=== PATIENT | male | born 1965 | race Caucasian/White ===

== ENCOUNTER 2020-03-20 10:40 | Inpatient (IN) | payer BC ==
[2020-03-20] MEDS ORDERED: MORPHINE SULFATE 4 MG/ML SYRINGE IV STA (10:50)
[2020-03-20] MEDS ORDERED: SODIUM CHLORIDE 0.9% 500 ML 500 ML IV STA (10:50)
--- NOTE | 2020-03-20 10:52 | ED ---
General Adult HPI - General Chief complaint: Abdominal Pain Stated complaint: Abd pain Time Seen by Provider: 03/20/20 10:43 Source: EMS Mode of arrival: EMS Limitations: no limitations - History of Present Illness Initial comments: Dictation was produced using [employer] dictation software. please excuse any grammatical, word or spelling errors. This patient was cared for during a federal and state declared state of emergency secondary to Covid 19 Chief Complaint: 54-year-old male presents with lower abdominal pain. History of Present Illness: 54-year-old male presents with lower abdominal pain. Patient was brought in by EMS. Patient states he is having symptoms since yesterday. Does feel some mild constitutional symptoms but denies any fever. Patient states that he thought he was constipated so he tried taking some laxatives and had some mild diarrhea. Patient denies any history of abdominal surgery. He has no history of diverticulitis. He has any blood in the stool. He did report a couple episodes of bilious vomiting. The ROS documented in this emergency department record has been reviewed and confirmed by me. Those systems with pertinent positive or negative responses have been documented in the HPI. All other systems are other negative and/or noncontributory. PHYSICAL EXAM: General Impression: Alert and oriented x3, not in acute distress HEENT: Normocephalic atraumatic, extra-ocular movements intact, pupils equal and reactive to light bilaterally, mucous membranes moist. Cardiovascular: Heart regular rate and rhythm Chest: Able to complete full sentences, no retractions, no tachypnea Abdomen: abdomen soft, tenderness to the bilateral lower abdominal quadrants, non-distended, no organomegaly Musculoskeletal: Pulses present and equal in all extremities, no peripheral edema Motor: no focal deficits noted Neurological: CN II-XII grossly intact, no focal motor or sensory deficits noted Skin: Intact with no visualized rashes Psych: Normal affect and mood ED course: 54-year-old male presents with lower abdominal pain 12 hours. [vital signs] Vital signs upon arrival shows heart rate of 103. Laboratory evaluation shows leukocytosis of 20.6. 19.2 neutrophils. Coag panel unremarkable. Metabolic panel shows lactic acidosis 2.2. Urinalysis is negative. Computed tomography scan of the abdomen and pelvis shows acute pelvic and diverticulitis with localized perforation. Patient will be admitted. Discussed patient case Dr. Khan was willing to accept patients care. He request that medicine be consulted. Patient given Zosyn and started intravenous fluids. He will be nothing by mouth currently. - Related Data Allergies Allergy/AdvReac Type Severity Reaction Status Date / Time No Known Allergies Allergy Verified 03/20/20 10:50 Review of Systems ROS Statement: Those systems with pertinent positive or pertinent negative responses have been documented in the HPI. ROS Other: All systems not noted in ROS Statement are negative. Past Medical History Past Medical History: No Reported History History of Any Multi-Drug Resistant Organisms: None Reported Past Surgical History: No Surgical Hx Reported Past Psychological History: No Psychological Hx Reported Smoking Status: Former smoker Past Alcohol Use History: None Reported Past Drug Use History: None Reported General Exam Limitations: no limitations Course Vital Signs 03/20/20 11:05 Temperature 99.0 F Pulse Rate 103 H Respiratory 18 Rate Blood Pressure 133/85 O2 Sat by Pulse 98 Oximetry Medical Decision Making - Lab Data Result diagrams: 03/20/20 11:10 03/20/20 11:10 Lab Results 03/20/20 03/20/20 03/20/20 Range/Units 11:10 11:10 11:10 WBC 20.6 H (3.8-10.6) k/uL RBC 4.97 (4.30-5.90) m/uL Hgb 15.3 (13.0-17.5) gm/dL Hct 47.5 (39.0-53.0) % MCV 95.6 (80.0-100.0) fL MCH 30.9 (25.0-35.0) pg MCHC 32.3 (31.0-37.0) g/dL RDW 13.0 (11.5-15.5) % Plt Count (150-450) k/uL Neutrophils % 93 % Lymphocytes % 3 % Monocytes % 2 % Eosinophils % 1 % Basophils % 0 % Neutrophils # 19.2 H (1.3-7.7) k/uL Lymphocytes # 0.6 L (1.0-4.8) k/uL Monocytes # 0.5 (0-1.0) k/uL Eosinophils # 0.2 (0-0.7) k/uL Basophils # 0.0 (0-0.2) k/uL Manual Slide Review Performed PT 11.5 (9.0-12.0) sec INR 1.1 (<1.2) APTT 23.2 (22.0-30.0) sec Sodium 135 L (137-145) mmol/L Potassium 3.7 (3.5-5.1) mmol/L Chloride 104 (98-107) mmol/L Carbon Dioxide 20 L (22-30) mmol/L Anion Gap 11 mmol/L BUN 9 (9-20) mg/dL Creatinine 0.99 (0.66-1.25) mg/dL Est GFR (CKD-EPI)AfAm >90 (>60 ml/min/1.73 sqM) Est GFR (CKD-EPI)NonAf 86 (>60 ml/min/1.73 sqM) Glucose 103 H (74-99) mg/dL Plasma Lactic Acid Jose (0.7-2.0) mmol/L Calcium 8.8 (8.4-10.2) mg/dL Total Bilirubin 2.2 H (0.2-1.3) mg/dL AST 17 (17-59) U/L ALT 11 (4-49) U/L Alkaline Phosphatase 76 (38-126) U/L Total Protein 6.6 (6.3-8.2) g/dL Albumin 3.9 (3.5-5.0) g/dL Lipase 41 (23-300) U/L Urine Color Urine Appearance (Clear) Urine pH (5.0-8.0) Ur Specific [place] (1.001-1.035) Urine Protein (Negative) Urine Glucose (UA) (Negative) Urine Ketones (Negative) Urine Blood (Negative) Urine Nitrite (Negative) Urine Bilirubin (Negative) Urine Urobilinogen (<2.0) mg/dL Ur Leukocyte Esterase (Negative) Urine RBC (0-5) /hpf Urine WBC (0-5) /hpf Ur Squamous Epith Cells (0-4) /hpf Hyaline Casts (0-2) /lpf Urine Mucus (None) /hpf 03/20/20 03/20/20 Range/Units 11:10 11:10 WBC (3.8-10.6) k/uL RBC (4.30-5.90) m/uL Hgb (13.0-17.5) gm/dL Hct (39.0-53.0) % MCV (80.0-100.0) fL MCH (25.0-35.0) pg MCHC (31.0-37.0) g/dL RDW (11.5-15.5) % Plt Count (150-450) k/uL Neutrophils % % Lymphocytes % % Monocytes % % Eosinophils % % Basophils % % Neutrophils # (1.3-7.7) k/uL Lymphocytes # (1.0-4.8) k/uL Monocytes # (0-1.0) k/uL Eosinophils # (0-0.7) k/uL Basophils # (0-0.2) k/uL Manual Slide Review PT (9.0-12.0) sec INR (<1.2) APTT (22.0-30.0) sec Sodium (137-145) mmol/L Potassium (3.5-5.1) mmol/L Chloride (98-107) mmol/L Carbon Dioxide (22-30) mmol/L Anion Gap mmol/L BUN (9-20) mg/dL Creatinine (0.66-1.25) mg/dL Est GFR (CKD-EPI)AfAm (>60 ml/min/1.73 sqM) Est GFR (CKD-EPI)NonAf (>60 ml/min/1.73 sqM) Glucose (74-99) mg/dL Plasma Lactic Acid Jose 2.2 H* (0.7-2.0) mmol/L Calcium (8.4-10.2) mg/dL Total Bilirubin (0.2-1.3) mg/dL AST (17-59) U/L ALT (4-49) U/L Alkaline Phosphatase (38-126) U/L Total Protein (6.3-8.2) g/dL Albumin (3.5-5.0) g/dL Lipase (23-300) U/L Urine Color Yellow Urine Appearance Clear (Clear) Urine pH 8.0 (5.0-8.0) Ur Specific [place] 1.016 (1.001-1.035) Urine Protein 1+ H (Negative) Urine Glucose (UA) Negative (Negative) Urine Ketones 1+ H (Negative) Urine Blood Trace H (Negative) Urine Nitrite Negative (Negative) Urine Bilirubin Negative (Negative) Urine Urobilinogen 3.0 (<2.0) mg/dL Ur Leukocyte Esterase Negative (Negative) Urine RBC 1 (0-5) /hpf Urine WBC 1 (0-5) /hpf Ur Squamous Epith Cells <1 (0-4) /hpf Hyaline Casts 1 (0-2) /lpf Urine Mucus Few H (None) /hpf Disposition Clinical Impression: Diverticulitis Disposition: ADMITTED IP TO THIS HOSP Condition: Fair Referrals: None,Stated [Primary Care Provider] - 1-2 days Decision Time: 12:12
[2020-03-20 11:29] LABS: ALT 11 U/L (4-49); AST 17 U/L (17-59); African American GFR (CKD) >90 (>60 ml/min/1.73 sqM); Albumin 3.9 g/dL (3.5-5.0); Alkaline Phosphatase 76 U/L (38-126); Anion Gap 11 mmol/L; Blood Urea Nitrogen 9 mg/dL (9-20); Calcium 8.8 mg/dL (8.4-10.2); Carbon Dioxide 20 mmol/L (22-30); Chloride 104 mmol/L (98-107); Glucose 103 mg/dL (74-99); Non-African American GFR(CKD) 86 (>60 ml/min/1.73 sqM); Potassium 3.7 mmol/L (3.5-5.1); Sodium 135 mmol/L (137-145); Total Bilirubin 2.2 mg/dL (0.2-1.3); Total Protein 6.6 g/dL (6.3-8.2)
[2020-03-20 11:36] LABS: Basophils % (A) 0 %; Eosinophils # (A) 0.2 k/uL (0-0.7); Eosinophils % (A) 1 %; HCT 47.5 % (39.0-53.0); HGB 15.3 gm/dL (13.0-17.5); Lymphocytes # (A) 0.6 k/uL (1.0-4.8); Lymphocytes % (A) 3 %; MCH 30.9 pg (25.0-35.0); MCHC 32.3 g/dL (31.0-37.0); MCV 95.6 fL (80.0-100.0); Monocytes # (A) 0.5 k/uL (0-1.0); Monocytes % (A) 2 %; Neutrophils # (A) 19.2 k/uL (1.3-7.7); Neutrophils % (A) 93 %; RBC 4.97 m/uL (4.30-5.90); WBC 20.6 k/uL (3.8-10.6)
[2020-03-20 11:40] LABS: Appearance,Urine Clear (Clear); Bilirubin,Urine Negative (Negative); Blood,Urine Trace (Negative); Color,Urine Yellow; Glucose,Urine (UA) Negative (Negative); Hyaline Casts,Urine 1 /lpf (0-2); Ketones,Urine 1+ (Negative); Leukocyte Esterase,Urine Negative (Negative); Mucus,Urine Few /hpf; Nitrite,Urine Negative (Negative); Protein,Urine 1+ (Negative); RBC,Urine 1 /hpf (0-5); Specific Gravity,Urine 1.016 (1.001-1.035); Squamous Epithelial Cell,Urine <1 /hpf (0-4); WBC,Urine 1 /hpf (0-5)
--- NOTE | 2020-03-20 11:44 | CT ---
EXAMINATION TYPE: CT abdomen pelvis w con DATE OF EXAM: 03/20/2020 COMPARISON: Prior CT 07/01/2010 HISTORY: Abdominal pain CT DLP: 1080.3 mGycm Automated exposure control for dose reduction was used. TECHNIQUE: Helical acquisition of images from the lung bases through the pelvis have been completed. CONTRAST: Performed without Oral Contrast and with IV Contrast, patient injected with 100 mL of Isovue 300. FINDINGS: LUNG BASES: No significant abnormality is appreciated. AORTA: No significant abnormality is appreciated. LIVER/GB: Liver shows low attenuation, correlate for hepatic steatosis. Gallbladder is normal. PANCREAS: No significant abnormality is seen. SPLEEN: No significant abnormality is seen. ADRENALS: No significant abnormality is seen. KIDNEYS: No significant abnormality is seen. Small parapelvic cysts noted on the right. Retroaortic l eft renal vein is present. REPRODUCTIVE ORGANS: Prostate shows associated calcification BOWEL: There is small umbilical hernia containing fat. The sigmoid colon shows abnormal thickening. There is some diverticular change. There is localized leak immediately adjacent to the sigmoid colon with an air-fluid level, focal area within the mesenteric fat measures approximately 2.8 cm. Overall the air pocket measures approximately 5 cm within the pericolonic mesenteric fat There is increased g roundglass density within the surrounding fat. FREE AIR: No Free Air visible. ASCITES: None visible. PELVIC ADENOPATHY: None visualized. RETROPERITONEAL ADENOPATHY: No Retroperitoneal Adenopathy visible. URINARY BLADDER: No significant abnormality is seen. OSSEOUS STRUCTURES: No significant abnormality is seen. IMPRESSION: DIVERTICULITIS WITH LOCALIZED PERFORATION. There is a small air-fluid level, no enhancing wall to sug gest abscess at this time. Probable hepatic steatosis.
[2020-03-20] MEDS ORDERED: PIPERACILLIN-TAZOBACTAM 3.375 GM in SODIUM CHLORIDE 0.9% 100 ML IVPB STA (11:46)
[2020-03-20 11:48] LABS: INR 1.1 (<1.2); Partial Thromboplastin Time 23.2 sec (22.0-30.0); Prothrombin Time 11.5 sec (9.0-12.0)
[2020-03-20] MEDS ORDERED: MORPHINE SULFATE 4 MG/ML SYRINGE IV PRN (12:09)
[2020-03-20] MEDS ORDERED: NALOXONE 0.4 MG/ML 1 ML VIAL IV PRN (12:09)
[2020-03-20] MEDS: SODIUM CHLORIDE 0.9% 1,000 ML IV SCH ×2 (14:51→22:26)
[2020-03-20] MEDS ORDERED: diphenhydrAMINE 50 MG/ML 1 ML VIAL IVP PRN (16:18)
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
--- NOTE | 2020-03-20 16:58 | XR ---
EXAMINATION TYPE: XR abdomen 2V DATE OF EXAM: 03/20/2020 COMPARISON: NONE HISTORY: Pelvic pain TECHNIQUE: Supine and upright views FINDINGS: Bowel gas pattern is normal. There is no sign of intestinal obstruction or pneumoperitoneum . Fecal pattern is normal. There is some minimal pleural reaction at the left lung base. There are no pathologic calcifications over the kidneys. There is contrast in the urinary bladder. IMPRESSION: Nonacute abdomen. Minimal pleural reaction and atelectasis left lung base.
[2020-03-20] MEDS: MORPHINE SULFATE 4 MG/ML SYRINGE IV PRN (22:28)
[2020-03-21] MEDS: ACETAMINOPHEN TAB 325 MG TAB PO PRN ×2 (02:40→16:31)
[2020-03-21] MEDS: MORPHINE SULFATE 4 MG/ML SYRINGE IV PRN ×3 (05:19→20:14)
[2020-03-21] MEDS: SODIUM CHLORIDE 0.9% 1,000 ML IV SCH ×3 (05:20→21:02)
[2020-03-21 07:56] LABS: HGB 13.5 gm/dL (13.0-17.5); MCH 32.5 pg (25.0-35.0); MCV 98.5 fL (80.0-100.0); Mean Platelet Volume 7.4; Platelet Count 196 k/uL (150-450); RBC 4.16 m/uL (4.30-5.90); RDW 13.2 % (11.5-15.5); WBC 16.8 k/uL (3.8-10.6)
[2020-03-21 08:20] LABS: ALT 11 U/L (4-49); AST 19 U/L (17-59); African American GFR (CKD) >90 (>60 ml/min/1.73 sqM); Albumin 3.1 g/dL (3.5-5.0); Alkaline Phosphatase 54 U/L (38-126); Anion Gap 6 mmol/L; Blood Urea Nitrogen 13 mg/dL (9-20); Calcium 7.8 mg/dL (8.4-10.2); Carbon Dioxide 24 mmol/L (22-30); Chloride 104 mmol/L (98-107); Glucose 94 mg/dL (74-99); Magnesium 2.1 mg/dL (1.6-2.3); Non-African American GFR(CKD) >90 (>60 ml/min/1.73 sqM); Potassium 4.3 mmol/L (3.5-5.1); Sodium 134 mmol/L (137-145); Total Bilirubin 0.9 mg/dL (0.2-1.3); Total Protein 5.8 g/dL (6.3-8.2)
[2020-03-21] MEDS: PIPERACILLIN-TAZOBACTAM 3.375 GM in SODIUM CHLORIDE 0.9% 100 ML IVPB SCH ×3 (09:49→23:22)
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
--- NOTE | 2020-03-21 13:08 | P.GSHP ---
History of Present Illness H&P Date: 03/21/20 CHIEF COMPLAINT: Abdominal pain HISTORY OF PRESENT ILLNESS: 54-year-old male who presented to emergency room with a chief complaint of abdominal pain. Patient was found to have diverticulitis with localized perforation. Patient examined this morning at the bedside with Dr. Khan. Patient states his pain has significantly improved. Currently rating his pain 3/10. Patient was febrile overnight with a temperature of 100.9. PAST MEDICAL HISTORY: See list. PAST SURGICAL HISTORY: list. SOCIAL HISTORY: No illicit drug use. REVIEW OF SYSTEMS: CONSTITUTIONAL: Denies fever or chills. HEENT: Denies blurred vision, vision changes, or eye pain. Denies hemoptysis CARDIOVASCULAR: Denies chest pain or pressure. RESPIRATORY: No shortness of breath. GASTROINTESTINAL: Refer to [facility] for pertinent findings HEMATOLOGIC: Denies bleeding disorders. GENITOURINARY: Denies any blood in urine. SKIN: Denies pruitis. Denies rash. PHYSICAL EXAM: VITAL SIGNS: Reviewed. GENERAL: Well-developed in no acute distress. HEENT: No sclera icterus. Extraocular movements grossly intact. Moist buccal mucosa. Head is atraumatic, normocephalic. ABDOMEN: Soft. Nondistended. Mild tenderness with palpation of lower abdomen. NEUROLOGIC: Alert and oriented. Cranial nerves II through XII grossly intact. LABORATORY DATA: WBC on admission 20.6. Repeat 16.8. IMAGING: CT abdomen and pelvis: Diverticulitis with localized perforation. ASSESSMENT: 1. Abdominal pain 2. Diverticulitis with localized perforation PLAN: Continue NPO for today Continue IV antibiotics No surgical intervention recommended at this time Nurse practitioner note has been reviewed by physician. Signing provider agrees with the documented findings, assessment, and plan of care. Past Medical History Past Medical History: No Reported History History of Any Multi-Drug Resistant Organisms: None Reported Past Surgical History: No Surgical Hx Reported Additional Past Surgical History / Comment(s): left elbow fracture repair, left knee washout and extensive stitches. Past Psychological History: No Psychological Hx Reported Smoking Status: Former smoker Past Alcohol Use History: Occasional Past Drug Use History: None Reported - Past Family History Father Additional Family Medical History / Comment(s): Aortic aneurysm Medications and Allergies Home Medications Medication Instructions Recorded Confirmed Type No Known Home Medications 03/20/20 03/20/20 History Allergies Allergy/AdvReac Type Severity Reaction Status Date / Time No Known Allergies Allergy Verified 03/20/20 16:32 Surgical - Exam Vital Signs Temp Pulse Resp BP Pulse Ox 99.0 F 103 H 18 133/85 98 03/20/20 11:05 03/20/20 11:05 03/20/20 11:05 03/20/20 11:05 03/20/20 11:05 Results - Labs 03/21/20 07:37 03/21/20 07:37 Abnormal Lab Results - Last 24 Hours (Table) 03/21/20 03/21/20 Range/Units 07:37 07:37 WBC 16.8 H (3.8-10.6) k/uL RBC 4.16 L (4.30-5.90) m/uL Sodium 134 L (137-145) mmol/L Calcium 7.8 L (8.4-10.2) mg/dL Total Protein 5.8 L (6.3-8.2) g/dL Albumin 3.1 L (3.5-5.0) g/dL Diabetes panel 03/21/20 Range/Units 07:37 Sodium 134 L (137-145) mmol/L Potassium 4.3 (3.5-5.1) mmol/L Chloride 104 (98-107) mmol/L Carbon Dioxide 24 (22-30) mmol/L BUN 13 (9-20) mg/dL Creatinine 0.94 (0.66-1.25) mg/dL Glucose 94 (74-99) mg/dL Calcium 7.8 L (8.4-10.2) mg/dL AST 19 (17-59) U/L ALT 11 (4-49) U/L Alkaline Phosphatase 54 (38-126) U/L Total Protein 5.8 L (6.3-8.2) g/dL Albumin 3.1 L (3.5-5.0) g/dL Calcium panel 03/21/20 Range/Units 07:37 Calcium 7.8 L (8.4-10.2) mg/dL Albumin 3.1 L (3.5-5.0) g/dL Pituitary panel 03/21/20 Range/Units 07:37 Sodium 134 L (137-145) mmol/L Potassium 4.3 (3.5-5.1) mmol/L Chloride 104 (98-107) mmol/L Carbon Dioxide 24 (22-30) mmol/L BUN 13 (9-20) mg/dL Creatinine 0.94 (0.66-1.25) mg/dL Glucose 94 (74-99) mg/dL Calcium 7.8 L (8.4-10.2) mg/dL Adrenal panel 03/21/20 Range/Units 07:37 Sodium 134 L (137-145) mmol/L Potassium 4.3 (3.5-5.1) mmol/L Chloride 104 (98-107) mmol/L Carbon Dioxide 24 (22-30) mmol/L BUN 13 (9-20) mg/dL Creatinine 0.94 (0.66-1.25) mg/dL Glucose 94 (74-99) mg/dL Calcium 7.8 L (8.4-10.2) mg/dL Total Bilirubin 0.9 (0.2-1.3) mg/dL AST 19 (17-59) U/L ALT 11 (4-49) U/L Alkaline Phosphatase 54 (38-126) U/L Total Protein 5.8 L (6.3-8.2) g/dL Albumin 3.1 L (3.5-5.0) g/dL
[2020-03-21] MEDS: ONDANSETRON 4 MG/2 ML VIAL IVP PRN (20:14)
[2020-03-22] MEDS: MORPHINE SULFATE 4 MG/ML SYRINGE IV PRN ×4 (04:24→22:25)
[2020-03-22] MEDS: SODIUM CHLORIDE 0.9% 1,000 ML IV SCH ×4 (04:56→23:39)
[2020-03-22] MEDS: PIPERACILLIN-TAZOBACTAM 3.375 GM in SODIUM CHLORIDE 0.9% 100 ML IVPB SCH ×3 (07:37→23:39)
[2020-03-22 08:57] LABS: HGB 13.3 gm/dL (13.0-17.5); MCH 32.8 pg (25.0-35.0); MCHC 33.2 g/dL (31.0-37.0); MCV 98.8 fL (80.0-100.0); Mean Platelet Volume 8.9; Platelet Count 159 k/uL (150-450); RBC 4.05 m/uL (4.30-5.90); RDW 13.3 % (11.5-15.5); WBC 16.3 k/uL (3.8-10.6)
[2020-03-22 09:18] LABS: ALT 9 U/L (4-49); AST 18 U/L (17-59); African American GFR (CKD) >90 (>60 ml/min/1.73 sqM); Alkaline Phosphatase 62 U/L (38-126); Anion Gap 11 mmol/L; Blood Urea Nitrogen 11 mg/dL (9-20); Calcium 7.9 mg/dL (8.4-10.2); Carbon Dioxide 20 mmol/L (22-30); Chloride 103 mmol/L (98-107); Glucose 81 mg/dL (74-99); Magnesium 2.2 mg/dL (1.6-2.3); Non-African American GFR(CKD) >90 (>60 ml/min/1.73 sqM); Phosphorus 2.6 mg/dL (2.5-4.5); Potassium 4.3 mmol/L (3.5-5.1); Sodium 134 mmol/L (137-145); Total Bilirubin 0.9 mg/dL (0.2-1.3); Total Protein 5.8 g/dL (6.3-8.2)
--- NOTE | 2020-03-22 10:25 | P.PN ---
<Farzana Lombardi Fernanda - Last Filed: 03/22/20 10:22> Subjective Progress Note Date: 03/22/20 CHIEF COMPLAINT: Abdominal pain HISTORY OF PRESENT ILLNESS: Patient examined this morning at the bedside. He denies abdominal pain at rest. He reports pain 2/10 with movement. He remains nothing by mouth. White count is 16.3, down from 16.8. PHYSICAL EXAM: VITAL SIGNS: Reviewed. GENERAL: Well-developed in no acute distress. HEENT: No sclera icterus. Extraocular movements grossly intact. Moist buccal mucosa. Head is atraumatic, normocephalic. ABDOMEN: Soft. Nondistended. Minimal tenderness with palpation of lower abdomen. NEUROLOGIC: Alert and oriented. Cranial nerves II through XII grossly intact. ASSESSMENT: 1. Abdominal pain 2. Diverticulitis with localized perforation PLAN: Continue IV antibiotics. Monitor WBC. No surgical intervention recommended at this time Continue NPO status until evaluated by Dr. Khan this afternoon. Possible initiation of clear liquids. Nurse practitioner note has been reviewed by physician. Signing provider agrees with the documented findings, assessment, and plan of care. Objective - Vital Signs Vital signs: Vital Signs Temp 98.1 F 03/22/20 07:00 Pulse 86 03/22/20 07:00 Resp 16 03/22/20 07:00 BP 128/81 03/22/20 07:00 Pulse Ox 97 03/22/20 07:00 Intake & Output 03/21/20 03/22/20 03/22/20 18:59 06:59 18:59 Other: Voiding Method Toilet Toilet Toilet - Labs CBC & Chem 7: 03/22/20 08:12 03/22/20 08:12 Labs: Abnormal Lab Results - Last 24 Hours (Table) 03/22/20 03/22/20 Range/Units 08:12 08:12 WBC 16.3 H (3.8-10.6) k/uL RBC 4.05 L (4.30-5.90) m/uL Sodium 134 L (137-145) mmol/L Carbon Dioxide 20 L (22-30) mmol/L Calcium 7.9 L (8.4-10.2) mg/dL Total Protein 5.8 L (6.3-8.2) g/dL Albumin 3.0 L (3.5-5.0) g/dL Microbiology - Last 24 Hours (Table) 03/20/20 12:25 Blood Culture - Preliminary Blood No Growth after 24 hours <Bhupendra Khan - Last Filed: 03/22/20 16:36> Objective - Vital Signs Vital signs: Vital Signs Temp 98.3 F 03/22/20 14:56 Pulse 90 03/22/20 14:56 Resp 18 03/22/20 14:56 BP 137/91 03/22/20 14:56 Pulse Ox 98 03/22/20 14:56 Intake & Output 03/21/20 03/22/20 03/22/20 18:59 06:59 18:59 Other: Voiding Method Toilet Toilet Toilet # Voids 3 - Labs CBC & Chem 7: 03/22/20 08:12 03/22/20 08:12 Labs: Abnormal Lab Results - Last 24 Hours (Table) 03/22/20 03/22/20 Range/Units 08:12 08:12 WBC 16.3 H (3.8-10.6) k/uL RBC 4.05 L (4.30-5.90) m/uL Sodium 134 L (137-145) mmol/L Carbon Dioxide 20 L (22-30) mmol/L Calcium 7.9 L (8.4-10.2) mg/dL Total Protein 5.8 L (6.3-8.2) g/dL Albumin 3.0 L (3.5-5.0) g/dL Microbiology - Last 24 Hours (Table) 03/20/20 12:25 Blood Culture - Preliminary Blood No Growth after 48 hours Assessment and Plan Plan: Patient is improving. His abdominal pain is less. On exam his vital signs are stable. His abdomen is soft. There is minimal tenderness left lower quadrant. Improving diverticulitis. Patient continue receive IV antibiotics. We will advance his diet.
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
[2020-03-23] MEDS: MORPHINE SULFATE 4 MG/ML SYRINGE IV PRN (05:57)
[2020-03-23] MEDS: PIPERACILLIN-TAZOBACTAM 3.375 GM in SODIUM CHLORIDE 0.9% 100 ML IVPB SCH ×3 (07:33→23:46)
--- NOTE | 2020-03-23 10:08 | P.PN ---
Subjective Progress Note Date: 03/23/20 CHIEF COMPLAINT: Abdominal pain HISTORY OF PRESENT ILLNESS: Patient examined this morning at the bedside. He denies abdominal pain at rest. He is tolerating clear liquid diet. Denies nausea or vomiting. Vital signs are stable. He is afebrile. PHYSICAL EXAM: VITAL SIGNS: Reviewed. GENERAL: Well-developed in no acute distress. HEENT: No sclera icterus. Extraocular movements grossly intact. Moist buccal mucosa. Head is atraumatic, normocephalic. ABDOMEN: Soft. Nondistended. Abdomen nontender with palpation. NEUROLOGIC: Alert and oriented. Cranial nerves II through XII grossly intact. ASSESSMENT: 1. Abdominal pain 2. Diverticulitis with localized perforation PLAN: Continue IV antibiotics. Monitor WBC. No surgical intervention recommended at this time Continue clear liquid diet. Await a.m. results of CBC. Possible advancement of diet pending labs. Patient will be reevaluated today by Dr. Khan Nurse practitioner note has been reviewed by physician. Signing provider agrees with the documented findings, assessment, and plan of care. Objective - Vital Signs Vital signs: Vital Signs Temp 97.8 F 03/23/20 07:00 Pulse 79 03/23/20 07:33 Resp 18 03/23/20 07:33 BP 130/80 03/23/20 07:00 Pulse Ox 94 L 03/23/20 07:00 Intake & Output 03/22/20 03/23/20 03/23/20 18:59 06:59 18:59 Other: Voiding Method Toilet Toilet Toilet # Voids 3 3 - Labs CBC & Chem 7: 03/22/20 08:12 03/22/20 08:12 Labs: Microbiology - Last 24 Hours (Table) 03/20/20 12:25 Blood Culture - Preliminary Blood No Growth after 48 hours
[2020-03-23 10:22] LABS: Basophils % (A) 0 %; Eosinophils # (A) 0.1 k/uL (0-0.7); Eosinophils % (A) 1 %; HCT 42.7 % (39.0-53.0); HGB 13.6 gm/dL (13.0-17.5); Lymphocytes # (A) 0.4 k/uL (1.0-4.8); Lymphocytes % (A) 3 %; MCHC 31.9 g/dL (31.0-37.0); MCV 97.3 fL (80.0-100.0); Mean Platelet Volume 9.7; Monocytes # (A) 0.5 k/uL (0-1.0); Monocytes % (A) 4 %; Neutrophils # (A) 11.6 k/uL (1.3-7.7); Neutrophils % (A) 91 %; Platelet Count 175 k/uL (150-450); RBC 4.39 m/uL (4.30-5.90); WBC 12.7 k/uL (3.8-10.6)
[2020-03-23 10:43] LABS: African American GFR (CKD) >90 (>60 ml/min/1.73 sqM); Anion Gap 7 mmol/L; Blood Urea Nitrogen 9 mg/dL (9-20); Calcium 8.4 mg/dL (8.4-10.2); Carbon Dioxide 25 mmol/L (22-30); Chloride 100 mmol/L (98-107); Glucose 138 mg/dL (74-99); Non-African American GFR(CKD) >90 (>60 ml/min/1.73 sqM); Sodium 132 mmol/L (137-145)
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
[2020-03-24 07:46] LABS: Basophils % (A) 0 %; Eosinophils # (A) 0.1 k/uL (0-0.7); Eosinophils % (A) 1 %; HCT 44.7 % (39.0-53.0); HGB 15.1 gm/dL (13.0-17.5); Lymphocytes # (A) 0.8 k/uL (1.0-4.8); Lymphocytes % (A) 6 %; MCH 32.6 pg (25.0-35.0); MCHC 33.8 g/dL (31.0-37.0); MCV 96.3 fL (80.0-100.0); Mean Platelet Volume 8.8; Monocytes # (A) 0.6 k/uL (0-1.0); Monocytes % (A) 5 %; Neutrophils # (A) 10.5 k/uL (1.3-7.7); Neutrophils % (A) 86 %; Platelet Count 228 k/uL (150-450); RBC 4.65 m/uL (4.30-5.90); WBC 12.2 k/uL (3.8-10.6)
[2020-03-24 08:14] LABS: African American GFR (CKD) >90 (>60 ml/min/1.73 sqM); Anion Gap 9 mmol/L; Blood Urea Nitrogen 7 mg/dL (9-20); Calcium 8.5 mg/dL (8.4-10.2); Carbon Dioxide 24 mmol/L (22-30); Chloride 104 mmol/L (98-107); Glucose 104 mg/dL (74-99); Non-African American GFR(CKD) >90 (>60 ml/min/1.73 sqM); Potassium 3.7 mmol/L (3.5-5.1); Sodium 137 mmol/L (137-145)
[2020-03-24] MEDS: PIPERACILLIN-TAZOBACTAM 3.375 GM in SODIUM CHLORIDE 0.9% 100 ML IVPB SCH ×3 (08:25→23:54)
[2020-03-24] MEDS: HYDROcodone/APAP 5-325MG 1 EACH TAB PO PRN ×2 (08:26→19:52)
[2020-03-24] MEDS: amLODIPine 5 MG TAB PO SCH (10:16)
[2020-03-24] MEDS: ONDANSETRON 4 MG/2 ML VIAL IVP PRN (12:34)
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
--- NOTE | 2020-03-24 13:58 | P.PN ---
Subjective Progress Note Date: 03/24/20 CHIEF COMPLAINT: Abdominal pain HISTORY OF PRESENT ILLNESS: Patient examined at the bedside with Dr. Khan. Patient reports some increased pain this morning but states it has improved. He is tolerating diet. Denies nausea or vomiting. Vital signs are stable. He is afebrile. W BC 12.2. PHYSICAL EXAM: VITAL SIGNS: Reviewed. GENERAL: Well-developed in no acute distress. HEENT: No sclera icterus. Extraocular movements grossly intact. Moist buccal mucosa. Head is atraumatic, normocephalic. ABDOMEN: Soft. Nondistended. Abdomen nontender with palpation. NEUROLOGIC: Alert and oriented. Cranial nerves II through XII grossly intact. ASSESSMENT: 1. Abdominal pain 2. Diverticulitis with localized perforation PLAN: Continue IV antibiotics. Monitor WBC. No surgical intervention recommended at this time Continue full liquid diet Hold discharge today. Possible discharge tomorrow Nurse practitioner note has been reviewed by physician. Signing provider agrees with the documented findings, assessment, and plan of care. Objective - Vital Signs Vital signs: Vital Signs Temp 98.1 F 03/24/20 07:00 Pulse 89 03/24/20 08:00 Resp 16 03/24/20 08:00 BP 157/98 03/24/20 07:00 Pulse Ox 97 03/24/20 07:00 Intake & Output 03/23/20 03/24/20 03/24/20 18:59 06:59 18:59 Other: Voiding Method Toilet Toilet Toilet # Voids 2 1 # Bowel Movements 1 - Labs CBC & Chem 7: 03/24/20 06:26 03/24/20 06:26 Labs: Abnormal Lab Results - Last 24 Hours (Table) 03/24/20 03/24/20 Range/Units 06:26 06:26 WBC 12.2 H (3.8-10.6) k/uL Neutrophils # 10.5 H (1.3-7.7) k/uL Lymphocytes # 0.8 L (1.0-4.8) k/uL BUN 7 L (9-20) mg/dL Glucose 104 H (74-99) mg/dL Microbiology - Last 24 Hours (Table) 03/20/20 12:25 Blood Culture - Preliminary Blood No Growth after 72 hours
[2020-03-25] MEDS: HYDROcodone/APAP 5-325MG 1 EACH TAB PO PRN ×2 (04:37→10:43)
[2020-03-25 08:20] LABS: Basophils # (A) 0.1 k/uL (0-0.2); Basophils % (A) 1 %; Eosinophils # (A) 0.2 k/uL (0-0.7); Eosinophils % (A) 1 %; HCT 47.4 % (39.0-53.0); HGB 15.4 gm/dL (13.0-17.5); Lymphocytes # (A) 0.8 k/uL (1.0-4.8); Lymphocytes % (A) 5 %; MCH 31.1 pg (25.0-35.0); MCHC 32.4 g/dL (31.0-37.0); MCV 95.8 fL (80.0-100.0); Mean Platelet Volume 7.6; Monocytes # (A) 0.7 k/uL (0-1.0); Monocytes % (A) 5 %; Neutrophils % (A) 87 %; Platelet Count 303 k/uL (150-450); RBC 4.95 m/uL (4.30-5.90); RDW 12.9 % (11.5-15.5); WBC 15.1 k/uL (3.8-10.6)
[2020-03-25] MEDS: PIPERACILLIN-TAZOBACTAM 3.375 GM in SODIUM CHLORIDE 0.9% 100 ML IVPB SCH ×2 (08:32→16:52)
[2020-03-25] MEDS: amLODIPine 5 MG TAB PO SCH (08:32)
--- NOTE | 2020-03-25 11:23 | P.PN ---
Subjective Progress Note Date: 03/25/20 Principal diagnosis: Diverticulitis Patient doing well today. He was having some pain this morning requiring narcotics. White blood cell count will 0.2. Pain is currently 0 however. Tolerating diet. Asking for more to eat. He did have a bowel movement. Objective - Vital Signs Vital signs: Vital Signs Temp 98.4 F 03/25/20 07:00 Pulse 100 03/25/20 07:00 Resp 16 03/25/20 07:00 BP 157/94 03/25/20 07:00 Pulse Ox 94 L 03/25/20 07:00 Intake & Output 03/24/20 03/25/20 03/25/20 18:59 06:59 18:59 Intake Total 120 Balance 120 Intake: Oral 120 Other: Voiding Method Toilet Toilet Toilet # Voids 1 1 # Bowel Movements 1 1 - Exam Abdomen: Soft, nondistended, mild left lower quadrant tenderness - Labs CBC & Chem 7: 03/25/20 07:56 03/24/20 06:26 Labs: Abnormal Lab Results - Last 24 Hours (Table) 03/25/20 Range/Units 07:56 WBC 15.1 H (3.8-10.6) k/uL Neutrophils # 13.0 H (1.3-7.7) k/uL Lymphocytes # 0.8 L (1.0-4.8) k/uL Microbiology - Last 24 Hours (Table) 03/20/20 12:25 Blood Culture - Preliminary Blood No Growth after 96 hours Assessment and Plan (1) Diverticulitis Narrative/Plan: Patient doing better. Will advance diet. Anticipate discharge tomorrow. Current Visit: Yes Status: Acute Code(s): K57.92 - DVTRCLI OF INTEST, PART UNSP, W/O PERF OR ABSCESS W/O BLEED SNOMED Code(s): 263020563
--- NOTE | 2020-03-25 14:42 | P.PN ---
Subjective Progress Note Date: 03/25/20 Patient is a 54 yo male admitted 5 days ago with acute diverticulitis with a small perforation. His pain has been improving, when he is resting and not eating, his pain is essentially zero. He had oatmeal and ice cream yesterday which caused RUQ pain shortly after that was different than the original pain that he was experiencing. He is tolerating liquids very well, denies any nausea or vomiting, no diarrhea, no blood in stools, no fevers in the last 48 hrs. He is still on IVF and antibiotics, overall improving, possibly DC home tomorrow. Objective - Vital Signs Vital signs: Vital Signs Temp 98.4 F 03/25/20 07:00 Pulse 100 03/25/20 07:00 Resp 16 03/25/20 07:00 BP 157/94 03/25/20 07:00 Pulse Ox 94 L 03/25/20 07:00 Intake & Output 03/24/20 03/25/20 03/25/20 18:59 06:59 18:59 Intake Total 120 Balance 120 Intake: Oral 120 Other: Voiding Method Toilet Toilet Toilet # Voids 1 1 # Bowel Movements 1 1 - Exam General: non toxic, no distress,normal weight Derm: warm, dry Head: atraumatic, normocephalic Eyes: EOMI, no lid lag, anicteric sclera Mouth: no lip lesion, mucus membranes moist Cardiovascular: S1S2 reg, no murmur, positive posterior tibial pulse bilateral, no edema Lungs: Decreased bs bilateral, no rhonchi, no rales , no accessory muscle use Abdominal: soft,non tender to palpation, no guarding, no appreciable organomegaly, Neuro: CN II-XI grossly intact, no focal neuro deficits Psych: Alert, oriented, appropriate affect - Labs CBC & Chem 7: 03/25/20 07:56 03/24/20 06:26 Labs: Abnormal Lab Results - Last 24 Hours (Table) 03/25/20 Range/Units 07:56 WBC 15.1 H (3.8-10.6) k/uL Neutrophils # 13.0 H (1.3-7.7) k/uL Lymphocytes # 0.8 L (1.0-4.8) k/uL Microbiology - Last 24 Hours (Table) 03/20/20 12:25 Blood Culture - Preliminary Blood No Growth after 96 hours Assessment and Plan Plan: # Acute Diverticulitis with perforation and sepsis -improving clinically although WBC increased from 12- 15 today - Continue with Zosyn, IVF - Antiemetics - Pain control - tolerating regular diet -further management per surgery # Hypertension - started Norvasc will need Rx on discharge # Hyponatremia -resolved # Lactic acidosis -resolved anticipated DC home tomorrow
[2020-03-26] MEDS: PIPERACILLIN-TAZOBACTAM 3.375 GM in SODIUM CHLORIDE 0.9% 100 ML IVPB SCH ×3 (01:45→16:43)
[2020-03-26] MEDS: HYDROcodone/APAP 5-325MG 1 EACH TAB PO PRN ×3 (02:38→20:38)
[2020-03-26] MEDS: amLODIPine 5 MG TAB PO SCH (08:47)
[2020-03-26] MEDS ORDERED: DIAZEPAM 2 MG TAB PO ONE (10:42)
[2020-03-26 11:07] LABS: Basophils # (A) 0.1 k/uL (0-0.2); Basophils % (A) 1 %; Eosinophils # (A) 0.2 k/uL (0-0.7); Eosinophils % (A) 1 %; HCT 44.9 % (39.0-53.0); Lymphocytes # (A) 0.6 k/uL (1.0-4.8); Lymphocytes % (A) 4 %; MCH 32.1 pg (25.0-35.0); MCHC 33.3 g/dL (31.0-37.0); MCV 96.3 fL (80.0-100.0); Mean Platelet Volume 7.1; Monocytes # (A) 0.5 k/uL (0-1.0); Monocytes % (A) 3 %; Neutrophils # (A) 14.1 k/uL (1.3-7.7); Neutrophils % (A) 90 %; Platelet Count 348 k/uL (150-450); RBC 4.66 m/uL (4.30-5.90); RDW 13.1 % (11.5-15.5); WBC 15.7 k/uL (3.8-10.6)
--- NOTE | 2020-03-26 14:14 | P.PN ---
Subjective Progress Note Date: 03/26/20 Principal diagnosis: Diverticulitis Patient quite anxious today. He is very anxious to go home. Denies pain. Heart rate however is in the 110 to 120s. He states that secondary to his anxiety. He says he has had this trouble before. White blood cell count today 15.7, 15.1 yesterday. Lactic acid normal at 0.9. He is afebrile. He is also hypertensive with significant systolic and diastolic. He was given Valium for his anxiety. Objective - Vital Signs Vital signs: Vital Signs Temp 98.0 F 03/26/20 07:00 Pulse 147 H 03/26/20 13:44 Resp 16 03/26/20 07:00 BP 184/116 03/26/20 13:44 Pulse Ox 97 03/26/20 12:43 Intake & Output 03/25/20 03/26/20 03/26/20 18:59 06:59 18:59 Other: Voiding Method Toilet Toilet Toilet # Voids 2 - Exam Abdomen: Soft, nondistended, no appreciable tenderness - Labs CBC & Chem 7: 03/26/20 10:54 03/24/20 06:26 Labs: Abnormal Lab Results - Last 24 Hours (Table) 03/26/20 Range/Units 10:54 WBC 15.7 H (3.8-10.6) k/uL Neutrophils # 14.1 H (1.3-7.7) k/uL Lymphocytes # 0.6 L (1.0-4.8) k/uL Microbiology - Last 24 Hours (Table) 03/20/20 12:25 Blood Culture - Preliminary Blood No Growth after 120 hours Assessment and Plan (1) Diverticulitis Narrative/Plan: Patient very anxious today. Agree with anxiolytics. Monitor vital signs on anxiolytics. Unfortunately patient's white blood cell count also increased slig htly. Favor observation overnight with ongoing IV antibiotics. Will be reassessed by hospitalist regarding his hypertension in the near future. Patient may leave AMA. Current Visit: Yes Status: Acute Code(s): K57.92 - DVTRCLI OF INTEST, PART UNSP, W/O PERF OR ABSCESS W/O BLEED SNOMED Code(s): 943791567
[2020-03-26] MEDS ORDERED: DIAZEPAM 2 MG TAB PO STA (15:17)
[2020-03-26] MEDS ORDERED: cloNIDine HCL 0.1 MG TAB PO PRN (17:13)
--- NOTE | 2020-03-26 17:16 | P.PN ---
Subjective Progress Note Date: 03/26/20 54-year-old male admitted 5 days ago with abdominal pain secondary to acute diverticulitis. His abdominal pain has completely resolved today, he is tolerating a regular diet, no nausea or vomiting, no fevers or chills. He has been very anxious however, which has led to episodes of tachycardia and hyperte nsion. His blood pressure has been in the 170s, with heart rates occasional 120s, denies any chest pain, no shortness of breath, no hypoxia or respiratory distress. He has been asking to be discharged from the hospital as he is concerned about his financial situation, he also reports daily marijuana use which he believes has been exacerbating his anxiety. He's WBC count has been increasing for the last 3 days currently at 15 which is concerning even though clinically he appears to be improving every day. He received 2 mg of by mouth Valium which should not have any significant impact on his anxiety, and additional 2 mg was given a few hours later. The plan was to discharge him home today, but given his worsening leukocytosis and tachycardia, surgery decided to watch him for an additional day. Objective - Vital Signs Vital signs: Vital Signs Temp 97.9 F 03/26/20 16:40 Pulse 124 H 03/26/20 16:40 Resp 16 03/26/20 07:00 BP 167/117 03/26/20 16:40 Pulse Ox 98 03/26/20 16:40 Intake & Output 03/25/20 03/26/20 03/26/20 18:59 06:59 18:59 Intake Total 200 Balance 200 Intake: Oral 200 Other: Voiding Method Toilet Toilet Toilet # Voids 2 2 # Bowel Movements 1 - Constitutional General appearance: Present: average body habitus, cooperative, mild distress - EENT Eyes: Present: EOMI, PERRLA - Neck Neck: Present: lymphadenopathy, rigidity - Respiratory Respiratory: bilateral: CTA - Cardiovascular Heart rate: 110 Rhythm: regular Heart sounds: normal: S1, S2 Abnormal Heart Sounds: Absent: systolic murmur, diastolic murmur - Gastrointestinal General gastrointestinal: Present: normal bowel sounds. Absent: distended, hepatomegaly, tenderness - Integumentary Integumentary: Absent: cellulitis, cyanotic, pale, rash - Neurologic Neurologic: Present: CNII-XII intact - Musculoskeletal Musculoskeletal: Present: gait normal, strength equal bilaterally - Psychiatric Psychiatric: Present: A&O x's 3, appropriate affect - Labs CBC & Chem 7: 03/26/20 10:54 03/24/20 06:26 Labs: Abnormal Lab Results - Last 24 Hours (Table) 03/26/20 Range/Units 10:54 WBC 15.7 H (3.8-10.6) k/uL Neutrophils # 14.1 H (1.3-7.7) k/uL Lymphocytes # 0.6 L (1.0-4.8) k/uL Microbiology - Last 24 Hours (Table) 03/20/20 12:25 Blood Culture - Final Blood No Growth after 144 hours Assessment and Plan Plan: # Acute Diverticulitis with perforation and sepsis -improving clinically although WBC continues to increase for the third day :12.2- 15.1-->15.7 today - Continue with Zosyn, IVF - Antiemetics - Pain is well controlled - tolerating regular diet -Pain has almost completely resolved today. If there is recurrence of pain or any new symptoms, and a repeat CT is warranted especially in the setting of worsening leukocytosis and tachycardia -CRP added to blood work from this morning, we will repeat the following day to monitor disease progress # Hypertension -Increased Norvasc to 10 mg daily -Clonidine 0.1 mg when necessary for systolic blood pressure 180 # Sinus tachycardia -No clinical signs of worsening diverticulitis or sepsis, patient has 0 pain -No signs of dehydration or hypoperfusion -No chest pain, no dyspnea or hypoxia -This appears to be exacerbated by his anxiety -Trial of by mouth Valium -Check TSH level # Hyponatremia -resolved # Lactic acidosis -resolved anticipated DC home tomorrow
[2020-03-26] MEDS ORDERED: SODIUM CHLORIDE 0.9% 500 ML 500 ML IV ONE (18:45)
[2020-03-27] MEDS: PIPERACILLIN-TAZOBACTAM 3.375 GM in SODIUM CHLORIDE 0.9% 100 ML IVPB SCH ×2 (00:30→07:56)
[2020-03-27] MEDS: HYDROcodone/APAP 5-325MG 1 EACH TAB PO PRN (05:59)
[2020-03-27 07:48] LABS: Basophils # (A) 0.1 k/uL (0-0.2); Basophils % (A) 1 %; Eosinophils # (A) 0.3 k/uL (0-0.7); Eosinophils % (A) 2 %; HCT 42.8 % (39.0-53.0); HGB 14.5 gm/dL (13.0-17.5); Lymphocytes # (A) 0.8 k/uL (1.0-4.8); Lymphocytes % (A) 7 %; MCH 32.8 pg (25.0-35.0); MCHC 33.9 g/dL (31.0-37.0); MCV 96.5 fL (80.0-100.0); Mean Platelet Volume 7.7; Monocytes # (A) 0.5 k/uL (0-1.0); Monocytes % (A) 4 %; Neutrophils # (A) 9.9 k/uL (1.3-7.7); Neutrophils % (A) 85 %; Platelet Count 326 k/uL (150-450); RBC 4.43 m/uL (4.30-5.90); RDW 13.1 % (11.5-15.5); WBC 11.6 k/uL (3.8-10.6)
[2020-03-27 08:17] VITALS: BP 158/96; PULSE 116; RESP 17; TEMP 98.1
[2020-03-27 08:45] LABS: ALT 14 U/L (4-49); AST 23 U/L (17-59); African American GFR (CKD) >90 (>60 ml/min/1.73 sqM); Albumin 3.2 g/dL (3.5-5.0); Alkaline Phosphatase 83 U/L (38-126); Anion Gap 10 mmol/L; Blood Urea Nitrogen 9 mg/dL (9-20); Calcium 8.6 mg/dL (8.4-10.2); Carbon Dioxide 25 mmol/L (22-30); Chloride 102 mmol/L (98-107); Glucose 106 mg/dL (74-99); Non-African American GFR(CKD) >90 (>60 ml/min/1.73 sqM); Potassium 3.7 mmol/L (3.5-5.1); Sodium 137 mmol/L (137-145); Total Bilirubin 0.8 mg/dL (0.2-1.3); Total Protein 6.4 g/dL (6.3-8.2)
[2020-03-27] MEDS ORDERED: amLODIPine 10 MG TAB PO SCH (09:00)
[2020-03-27 09:19] LABS: C Reactive Protein 191.9 mg/L (<10.0)
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
--- NOTE | 2020-03-27 13:34 | P.DS ---
Providers Date of admission: 03/20/20 12:10 Expected date of discharge: 03/27/20 Attending physician: Bhupendra Khan Consults: 03/20/20 12:10 Consult Physician Routine Consulting Provider: Shae Mckeon Consult Reason/Comments: IM consult Do you want consulting provider notified?: Yes Primary care physician: Stated None Hospital Course: 54-year-old male who presented to emergency room with a chief complaint of abdominal pain. Patient was found to have diverticulitis with localized perforation. Patient was made NPO and started on antibiotics. His diet was sl owly advanced. His pain has since resolved. He is tolerating diet. Stable for discharge home today per Dr. Khan. Patient is to follow up outpatient with Dr. Khan in 1 week. Please see EMR for further hospital course details. Discharge Diagnosis: 1. Abdominal pain 2. Diverticulitis with localized perforation Nurse practitioner note has been reviewed by physician. Signing provider agrees with the documented findings, assessment, and plan of care. Patient Condition at Discharge: Stable Plan - Discharge Summary Discharge Rx Participant: Yes New Discharge Prescriptions: New Ciprofloxacin HCl [Cipro] 500 mg PO Q12H #20 tab metroNIDAZOLE [Flagyl] 500 mg PO TID #30 tab amLODIPine [Norvasc] 10 mg PO DAILY #30 tab Discharge Medication List Ciprofloxacin HCl [Cipro] 500 mg PO Q12H #20 tab 03/24/20 [Rx] metroNIDAZOLE [Flagyl] 500 mg PO TID #30 tab 03/24/20 [Rx] amLODIPine [Norvasc] 10 mg PO DAILY #30 tab 03/27/20 [Rx] Follow up Appointment(s)/Referral(s): Genie Rodriguez NPC [REFERRING] - 1 Week (Please call to make appointment) Bhupendra Khan MD [STAFF PHYSICIAN] - 04/04/20 3:15 pm Patient Instructions/Handouts: Diverticulitis (DC), Diverticulitis Diet (DC)
== END 2020-03-27 14:08 | disposition home or self-care (01) | DRG 872 ==
LOC: EC 10:40 → 4SSUR 12:10
PROVIDERS: ADMIT Surgery; ATTEND Surgery
DX: A41.9 Sepsis, unspecified organism (principal); E87.1 Hypo-osmolality and hyponatremia; E87.2 Acidosis; K57.20 Diverticulitis of large intestine with perforation and abscess without bleeding; E86.0 Dehydration; F41.9 Anxiety disorder, unspecified; I10 Essential (primary) hypertension; K59.00 Constipation, unspecified; Z80.0 Family history of malignant neoplasm of digestive organs; Z87.891 Personal history of nicotine dependence; Z82.49 Family history of ischemic heart disease and other diseases of the circulatory system; Z11.59 Encounter for screening for other viral diseases
CPT/HCPCS: 36415; 74019; 74177; 80048; 80053; 81001; 83605; 83690; 83735; 84100; 84443; 85025; 85027; 85610; 85730; 86140; 87040; 87635; 93005; 96361; 96365; 96375; 99285

== ENCOUNTER 2020-03-28 08:48 | Inpatient (IN) | payer BC ==
[2020-03-28] MEDS ORDERED: ONDANSETRON 4 MG/2 ML VIAL IVP STA (09:10)
[2020-03-28] MEDS ORDERED: SODIUM CHLORIDE 0.9% 500 ML 500 ML IV STA (09:10)
[2020-03-28] MEDS ORDERED: MORPHINE SULFATE 2 MG/ML SYRINGE IVP STA (09:10)
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
[2020-03-28 09:36] LABS: ALT 23 U/L (4-49); AST 37 U/L (17-59); African American GFR (CKD) >90 (>60 ml/min/1.73 sqM); Albumin 3.6 g/dL (3.5-5.0); Alkaline Phosphatase 85 U/L (38-126); Amylase 37 U/L (30-110); Anion Gap 11 mmol/L; Blood Urea Nitrogen 10 mg/dL (9-20); Carbon Dioxide 26 mmol/L (22-30); Chloride 100 mmol/L (98-107); Glucose 126 mg/dL (74-99); HCT 48.5 % (39.0-53.0); HGB 15.8 gm/dL (13.0-17.5); MCHC 32.6 g/dL (31.0-37.0); MCV 98.2 fL (80.0-100.0); Non-African American GFR(CKD) >90 (>60 ml/min/1.73 sqM); Platelet Count 489 k/uL (150-450); RBC 4.94 m/uL (4.30-5.90); RDW 12.8 % (11.5-15.5); Sodium 137 mmol/L (137-145); Total Bilirubin 0.7 mg/dL (0.2-1.3); Total Protein 6.7 g/dL (6.3-8.2); WBC 14.3 k/uL (3.8-10.6)
[2020-03-28 10:08] LABS: Metamyelocytes # (M) 0.14 k/uL (0); Metamyelocytes % 1 %; Nucleated Red Blood Cells 0 /100 WBC (0-0)
[2020-03-28 10:10] LABS: Band Neutrophils % 19 %; Eosinophils # (M) 0.14 k/uL (0-0.7); Lymphocytes # (M) 0.43 k/uL (1.0-4.8); Neutrophils % (M) 77 %; Total Cells Counted 200; Toxic Granulation Present
--- NOTE | 2020-03-28 10:25 | CT ---
EXAMINATION TYPE: CT abdomen pelvis w con DATE OF EXAM: 03/28/2020 COMPARISON: 03/20/2020 INDICATION: Abd pain DLP: 1023.8 mGycm, Automated exposure control for dose reduction was used. CONTRAST: 100 mL of Isovue 300. Study performed without Oral Contrast TECHNIQUE: Axial images were obtained from above the diaphragm to the pubic rami in the axial plane a t 5 mm thick sections. Reconstructed images are reviewed on the computer in the coronal plane. FINDINGS: Limited CT sections are obtained the lung bases. Some minimal compressive atelectasis may be within the dependent portions of the lung bases.. CT ABDOMEN: Small amount of free air appears to be trapped within the retroperitoneal mesentery adjac ent to the distal portion of the duodenum. Additional foci of free air are identified within the abdo men adjacent to the spleen liver and along the nondependent portion. Free air is identified adjacent to the mid sigmoid colon, but likely source. There is free air within the pelvis. No abscess formatio n is evident. There is small amount of fluid adjacent to the sigmoid colon and free air. Small amount of fluid is in the right paracolic gutter within the pelvis. Note is made of a periumbilical fat-containing hernia with increased density. Carcinoid fat may be pr esent at this level. Free air is adjacent to this level as well. Liver: Normal Spleen: Normal Pancreas: Normal Adrenal glands: The adrenal glands are normal. Gallbladder: Normal Kidneys: No masses are evident. No hydronephrosis is present. No cysts are present. Delayed images were obtained through the kidneys, which remain unremarkable. Aorta: Vascular calcification is within the aorta. Inferior vena cava: Normal. CT PELVIS: A few diverticuli are within the sigmoid colon. No dilated loops of bowel are evident. Some mild thic kening of the sigmoid colon may be present. This is significantly diminished over the interval. Small bowel loops are nondilated containing fluid. The study is performed without oral contrast limiting b owel evaluation. Appendix: Not identified. No suspicious inflammatory changes or dilated tubular structures to suggest acute appendicitis are evident. Urinary bladder: Normal. Genitourinary structures: Prostate contains calcification but does not appear enlarged Osseous structures: No suspicious lytic or sclerotic lesions. IMPRESSIONS: 1. Free air from the mid sigmoid colon region is more extensive than prior. Correlate for acute dive rticulitis with perforation. No abscess formation is evident. Findings have become more diffuse withi n the comparison study of 03/20/2020. 2. Incidental note of possible incarcerated is enteric fat containing periumbilical hernia. 3. Small amount of fluid within the right paracolic gutter, the pelvis, and scattered within the abdo men. 4. Report was called to the emergency room physician Dr. Martin by Dr. Morris by telephone 1020 hours 03/28/2020.
[2020-03-28 10:29] LABS: Appearance,Urine Clear (Clear); Bilirubin,Urine Negative (Negative); Blood,Urine Negative (Negative); Color,Urine Yellow; Glucose,Urine (UA) Negative (Negative); Ketones,Urine Trace (Negative); Leukocyte Esterase,Urine Negative (Negative); Mucus,Urine Occasional /hpf; Nitrite,Urine Negative (Negative); Protein,Urine 1+ (Negative); RBC,Urine 1 /hpf (0-5); Specific Gravity,Urine 1.031 (1.001-1.035); WBC,Urine 3 /hpf (0-5)
--- NOTE | 2020-03-28 10:41 | P.GSHP ---
History of Present Illness H&P Date: 03/28/20 Chief Complaint: Perforated diverticulitis This is a 54-year-old male who has a known history of diverticulitis. Patient recent hospital admission for microperforation. Patient MORNING with severe onset of abdominal pain. His CAT scan shows worsening free air. His pain is a 7 out of 10 currently. Past Medical History Past Medical History: Hypertension Additional Past Medical History / Comment(s): DIVERTICULITIS History of Any Multi-Drug Resistant Organisms: None Reported Past Surgical History: No Surgical Hx Reported Additional Past Surgical History / Comment(s): left elbow fracture repair, left knee washout and extensive stitches. Past Psychological History: No Psychological Hx Reported Smoking Status: Former smoker Past Alcohol Use History: Occasional Past Drug Use History: Marijuana - Past Family History Father Additional Family Medical History / Comment(s): Aortic aneurysm Medications and Allergies Home Medications Medication Instructions Recorded Confirmed Type Ciprofloxacin HCl [Cipro] 500 mg PO Q12H #20 tab 03/24/20 03/28/20 Rx metroNIDAZOLE [Flagyl] 500 mg PO TID #30 tab 03/24/20 03/28/20 Rx amLODIPine [Norvasc] 10 mg PO DAILY #30 tab 03/27/20 03/28/20 Rx Allergies Allergy/AdvReac Type Severity Reaction Status Date / Time No Known Allergies Allergy Verified 03/28/20 09:49 Surgical - Exam Vital Signs Temp Pulse Resp BP Pulse Ox 98.7 F 108 H 18 139/90 97 03/28/20 08:48 03/28/20 08:48 03/28/20 08:48 03/28/20 08:48 03/28/20 08:48 - General well developed, well nourished, no distress - Eyes PERRL - ENT normal pinna - Neck no masses - Respiratory normal expansion - Cardiovascular Rhythm: regular - Abdomen Acute abdominal pain with peritoneal signs throughout. Abdomen: soft, tender, guarding, rigid Results - Labs 03/28/20 09:15 03/28/20 09:15 Abnormal Lab Results - Last 24 Hours (Table) 03/28/20 03/28/20 03/28/20 Range/Units 09:15 09:15 10:15 WBC 14.3 H (3.8-10.6) k/uL Plt Count 489 H (150-450) k/uL Neutrophils # (Manual) 13.70 H (1.3-7.7) k/uL Lymphocytes # (Manual) 0.43 L (1.0-4.8) k/uL Metamyelocytes # (Man) 0.14 H (0) k/uL Glucose 126 H (74-99) mg/dL Urine Protein 1+ H (Negative) Urine Ketones Trace H (Negative) Urine Mucus Occasional H (None) /hpf Diabetes panel 03/28/20 Range/Units 09:15 Sodium 137 (137-145) mmol/L Potassium 4.0 (3.5-5.1) mmol/L Chloride 100 (98-107) mmol/L Carbon Dioxide 26 (22-30) mmol/L BUN 10 (9-20) mg/dL Creatinine 0.79 (0.66-1.25) mg/dL Glucose 126 H (74-99) mg/dL Calcium 9.0 (8.4-10.2) mg/dL AST 37 (17-59) U/L ALT 23 (4-49) U/L Alkaline Phosphatase 85 (38-126) U/L Total Protein 6.7 (6.3-8.2) g/dL Albumin 3.6 (3.5-5.0) g/dL Calcium panel 03/28/20 Range/Units 09:15 Calcium 9.0 (8.4-10.2) mg/dL Albumin 3.6 (3.5-5.0) g/dL Pituitary panel 03/28/20 Range/Units 09:15 Sodium 137 (137-145) mmol/L Potassium 4.0 (3.5-5.1) mmol/L Chloride 100 (98-107) mmol/L Carbon Dioxide 26 (22-30) mmol/L BUN 10 (9-20) mg/dL Creatinine 0.79 (0.66-1.25) mg/dL Glucose 126 H (74-99) mg/dL Calcium 9.0 (8.4-10.2) mg/dL Adrenal panel 03/28/20 Range/Units 09:15 Sodium 137 (137-145) mmol/L Potassium 4.0 (3.5-5.1) mmol/L Chloride 100 (98-107) mmol/L Carbon Dioxide 26 (22-30) mmol/L BUN 10 (9-20) mg/dL Creatinine 0.79 (0.66-1.25) mg/dL Glucose 126 H (74-99) mg/dL Calcium 9.0 (8.4-10.2) mg/dL Total Bilirubin 0.7 (0.2-1.3) mg/dL AST 37 (17-59) U/L ALT 23 (4-49) U/L Alkaline Phosphatase 85 (38-126) U/L Total Protein 6.7 (6.3-8.2) g/dL Albumin 3.6 (3.5-5.0) g/dL - Imaging CT scan - pelvis: image reviewed (Increased free air from prior exam., Incarcerated periumbilical hernia) Assessment and Plan Assessment: Perforated diverticulitis. Patient will undergo sigmoid colectomy and colostomy today.
[2020-03-28] MEDS ORDERED: IV FLUID CONTINUATION 1,000 ML IV ONE (11:00)
[2020-03-28] MEDS ORDERED: ONDANSETRON 4 MG/2 ML VIAL IVP PRN (11:29)
[2020-03-28] MEDS ORDERED: SODIUM CHLORIDE 0.9% 1,000 ML IV SCH (11:30)
[2020-03-28] MEDS ORDERED: ACETAMINOPHEN TAB 325 MG TAB PO PRN (11:30)
[2020-03-28] MEDS ORDERED: fentaNYL (PF) 50 MCG/ML 2 ML AMP IV ONE (11:42)
[2020-03-28] MEDS ORDERED: MIDAZOLAM 2 MG/2 ML VIAL IV ONE (11:42)
--- NOTE | 2020-03-28 11:53 | P.ANPRN ---
Procedure Note - Anesthesia - Nerve Block Performed Bilateral Transversus Abdominis Single Time Out Performed: Yes Date of Procedure: 03/28/20 Procedure Start Time: 11:41 Procedure Stop Time: 11:51 Location of Patient: PreOp Indication: Acute Post-Operative Pain, Requested by Surgeon Sedation Type: Sedate with meaningful contact maintained Preparation: Sterile Prep Position: Supine Catheter: None Needle Types: Pajunk Needle Gauge: 21 Ultrasound used to visualize needle placement: Yes Ultrasound used to observe medication spread: Yes Injectate: 0.5% Ropivacaine (see comment for volume) (ropivacaine 0.5%- 20 cc + decadron 4mg-- per side) Blood Aspirated: No Pain Paresthesia on Injection Noted: No Resistance on Injection: Normal Image Stored and Saved: Yes Events: Uneventful and Well Tolerated
[2020-03-28] MEDS ORDERED: LACTATED RINGERS 1,000 ML IV ONE ×3 (11:55→15:13)
[2020-03-28] MEDS ORDERED: HEPARIN SODIUM,PORCINE 5,000 UNIT/ML 1 ML VIAL SQ ONE (12:14)
[2020-03-28] MEDS ORDERED: DEXAMETHASONE SOD PHOSPHATE 10 MG/ML 1 ML VIAL IV ONE (12:15)
[2020-03-28] MEDS ORDERED: ONDANSETRON 4 MG/2 ML VIAL IVP ONE (12:15)
[2020-03-28] MEDS ORDERED: NEOSTIGMINE 1 MG/ML 10 ML VIAL ONE (12:49)
[2020-03-28] MEDS ORDERED: PROPOFOL 10 MG/ML 20 ML VIAL IV ONE (12:49)
[2020-03-28] MEDS ORDERED: ONDANSETRON 4 MG/2 ML VIAL ONE (12:49)
[2020-03-28] MEDS ORDERED: fentaNYL (PF) 50 MCG/ML 2 ML AMP ONE (12:49)
[2020-03-28] MEDS ORDERED: HYDROmorphone (PF) 1 MG/ML ONE (12:49)
[2020-03-28] MEDS ORDERED: DEXAMETHASONE SOD PHOSPHATE 4 MG/ML 1 ML VIAL ONE (12:49)
[2020-03-28] MEDS ORDERED: GLYCOPYRROLATE 0.2 MG/ML 2 ML VIAL ONE (12:49)
[2020-03-28] MEDS ORDERED: ROCURONIUM BROMIDE 10 MG/ML 5 ML VIAL IV ONE (12:49)
[2020-03-28] MEDS ORDERED: MIDAZOLAM 2 MG/2 ML VIAL ONE (12:49)
[2020-03-28] MEDS ORDERED: ROPIVACAINE 5 MG/ML 30 ML VIAL ONE (12:49)
[2020-03-28] MEDS ORDERED: LIDOCAINE 1% INJ 10MG/ML (20 ML MDV) ONE (12:49)
[2020-03-28] MEDS ORDERED: SUCCINYLCHOLINE CHLORIDE 100 MG/5 ML SYR IV ONE (12:49)
[2020-03-28] MEDS ORDERED: SODIUM CHLORIDE 0.9% 50 ML with ceFAZolin 2,000 MG IV ONE ×2 (13:14)
[2020-03-28] MEDS ORDERED: metroNIDAZOLE-NS PMX 500 MG in SALINE 1 100ML.BAG IVPB STA (13:15)
--- NOTE | 2020-03-28 14:14 | P.OP ---
Date of Procedure: 03/28/20 Preoperative Diagnosis: Perforated diverticulitis Postoperative Diagnosis: Perforated diverticulitis with abscess Procedure(s) Performed: Sigmoid colectomy with end colostomy Anesthesia: STEPHENIE Surgeon: Bhupendra Khan Estimated Blood Loss (ml): 200 Pathology: other (;, Culture) Condition: stable Disposition: PACU Description of Procedure: The patient's placed the operative table in the supine position. He received general anesthesia. Clay catheter was placed. His abdomen was prepped and draped usual sterile fashion. The abdomen was entered through a low midline incision. There was a ventral hernia encountered. There was incarcerated fat within the hernia as well as withdrawn with gentle traction. Upon entering the abdominal cavity there was purulent fluid within the abdomen. A wound culture was performed. The sigmoid colon was examined; office inflamed. The small bowel was packed out of the operative field and abscess cavity could be seen at the mesentery;. CAT scan was entered in approximate 20 mL of purulent fluid was withdrawn. At this point decided to perform a sigmoid colectomy. The distal descending colon was transected with a GI stapler and then using insulin device the mesentery of the; was divided. The proximal rectum was then divided with the contour device. The white line of Toldt was divided and the left colon was mobilized. Suitable length of the colon was achieved to bring out a colostomy. The abdomen was irrigated with 3 L of normal saline. The colostomy was chosen in the left lateral abdominal wall. The bowel was brought through the colostomy site. The fascia was then closed in looped #1 PDS suture. The ventral hernia was then repaired during fascial closure.. Skin was closed vamsi. Several Telfa keith were placed in the incision. Colostomy then matured with 3-0 Vicryl suture. A ALEJANDRA drain had been placed in the left lower quadrant. This was secured with 2-0 nylon.
[2020-03-28] MEDS ORDERED: BENZOCAINE/MENTHOL LOZENG 1 EACH LOZENGE MUCOUS MEM PRN (14:15)
[2020-03-28] MEDS ORDERED: METOCLOPRAMIDE 5 MG/ML 2 ML VIAL IVP PRN (14:15)
[2020-03-28] MEDS: HYDROmorphone 1 MG/ML 1 ML SYRINGE IVP ONE ×2 (14:53→14:58)
[2020-03-28] MEDS ORDERED: LABETALOL SYRINGE 5 MG/ML IVP ONE (15:22)
[2020-03-28] MEDS ORDERED: HYDROmorphone 0.5 MG/0.5 ML SYRINGE IVP ONE (15:46)
[2020-03-28] MEDS ORDERED: HEPARIN SODIUM,PORCINE 5,000 UNIT/ML 1 ML VIAL SQ SCH (16:00)
[2020-03-28] MEDS: HYDROmorphone 1 MG/ML 1 ML SYRINGE IVP PRN ×2 (17:01→22:01)
[2020-03-28] MEDS: HEPARIN SODIUM,PORCINE 5,000 UNIT/ML 1 ML VIAL SQ SCH (17:01)
--- NOTE | 2020-03-28 17:20 | P.CONS ---
History of Present Illness - Reason for Consult Consult date: 03/28/20 hypertension Requesting physician: Bhupendra Khan - Chief Complaint abdominal pain - History of Present Illness Patient is a 54-year-old male with recently diagnosed hypertension, he was admitted here from 03/20 through 03/27 to acute diverticulitis with perforatio n. His white blood cell count had normalized and he was tolerating a diet. He was discharged home on 03/27/2020. He was doing well at home and suddenly at 6 AM on 03/28 he had a severe increase in his abdominal pain. He re-presented to the emergency department where he underwent a CT abdomen and pelvis which showed an increased amount of free air. Dr. Khan was notified. The patient was taken urgently to the operating room and underwent colectomy with diverting colostomy. Patient seen and examined at bedside. He reports that at 6 am he had sudden onset abdominal pain with some nausea. Currently he denies any nausea, vomiting, chest pain, shortness of breath, lightheadedness, or dizziness. He does report a 6 out of 10 abdominal pain after surgery. He took his medications as prescribed after discharge. Review of Systems Pertinent positives and negatives as discussed in HPI, a complete review of systems was performed and all other systems are negative. Past Medical History Past Medical History: Hypertension Additional Past Medical History / Comment(s): DIVERTICULITIS History of Any Multi-Drug Resistant Organisms: None Reported Additional Past Surgical History / Comment(s): left elbow fracture repair, left knee washout and extensive stitches. Sigmoid colectomy with end colostomy. Past Psychological History: No Psychological Hx Reported Smoking Status: Light tobacco smoker Past Alcohol Use History: Occasional Past Drug Use History: Marijuana - Past Family History Father Additional Family Medical History / Comment(s): Aortic aneurysm Medications and Allergies Home Medications Medication Instructions Recorded Confirmed Type Ciprofloxacin HCl [Cipro] 500 mg PO Q12H #20 tab 03/24/20 03/28/20 Rx metroNIDAZOLE [Flagyl] 500 mg PO TID #30 tab 03/24/20 03/28/20 Rx amLODIPine [Norvasc] 10 mg PO DAILY #30 tab 03/27/20 03/28/20 Rx Allergies Allergy/AdvReac Type Severity Reaction Status Date / Time No Known Allergies Allergy Verified 03/28/20 11:31 Physical Exam Osteopathic Statement: *. No significant issues noted on an osteopathic structural exam other than those noted in the History and Physical/Consult. Vitals: Vital Signs Temp Pulse Pulse Pulse Resp BP BP 03/28/20 16:18 03/28/20 16:15 98.3 F 100 18 138/89 03/28/20 15:37 90 16 148/90 03/28/20 15:27 98 16 137/84 03/28/20 15:12 108 H 16 159/94 03/28/20 14:57 111 H 16 149/89 03/28/20 14:42 114 H 16 164/97 03/28/20 14:27 99.1 F 112 H 18 162/101 03/28/20 12:11 108 H 16 03/28/20 11:50 118 H 16 03/28/20 11:14 99.3 F 102 H 16 118/73 03/28/20 11:12 99.3 F 16 03/28/20 11:08 99.3 F 118 H 16 03/28/20 10:42 102 H 18 118/73 03/28/20 08:48 98.7 F 108 H 18 139/90 BP Pulse Ox 03/28/20 16:18 91 L 03/28/20 16:15 85 L 03/28/20 15:37 99 03/28/20 15:27 98 03/28/20 15:12 97 03/28/20 14:57 97 03/28/20 14:42 97 03/28/20 14:27 97 03/28/20 12:11 133/82 96 03/28/20 11:50 132/87 96 03/28/20 11:14 95 03/28/20 11:12 95 03/28/20 11:08 146/83 95 03/28/20 10:42 99 03/28/20 08:48 97 Intake and Output 03/28/20 03/28/20 03/28/20 06:59 14:59 22:59 Intake Total 3150 1100 Output Total 650 225 Balance 2500 875 Intake: IV 3150 1100 Output: Urine 500 225 Estimated Blood Loss 150 Other: Weight 83.915 kg General: ill appearing, no distress, appears at stated age, normal weight Derm: no unusual rashes/lesions no unusual ecchymoses, warm, dry Head: atraumatic, normocephalic, symmetric Eyes: EOMI, no lid lag, anicteric sclera, pupils equal round reactive to light ENT: Nose and ears atraumatic, no thrush, no pharyngeal erythema Neck: No thyromegaly, no cervical lymphadenopathy, trachea midline, supple Mouth: no lip lesion, mucus membranes moist Cardiovascular: S1S2 reg, no murmur, positive posterior tibial pulse bilateral, no edema, capillary refill less than 2 seconds Lungs: Decreased bs bilateral, no rhonchi, no rales , no accessory muscle use Abdominal: soft, +tender to palpation diffusely, no guarding, no appreciable organomegaly, normal bowel sounds, midline dressing in place and colostomy in place Ext: no gross muscle atrophy, muscle strength 5 out of 5 in all 4 extremities grossly, no contractures, Neuro: CN II-XI grossly intact, light touch intact all 4 extremities, finger to nose within normal limits, Psych: Alert, oriented, appropriate affect Results CBC & Chem 7: 03/28/20 09:15 03/28/20 09:15 Labs: Abnormal Lab Results - Last 24 Hours (Table) 03/28/20 03/28/20 03/28/20 Range/Units 09:15 09:15 10:15 WBC 14.3 H (3.8-10.6) k/uL Plt Count 489 H (150-450) k/uL Neutrophils # (Manual) 13.70 H (1.3-7.7) k/uL Lymphocytes # (Manual) 0.43 L (1.0-4.8) k/uL Metamyelocytes # (Man) 0.14 H (0) k/uL Glucose 126 H (74-99) mg/dL Urine Protein 1+ H (Negative) Urine Ketones Trace H (Negative) Urine Mucus Occasional H (None) /hpf Assessment and Plan Assessment: Diverticulitis with abscess and perforation - s/p sigmoid colectomy with colostomy - Zosyn - IV fluids - await cultures - pain control - NPO - antiemetics - Admitted to surgery HTN, controlled - resume norvasc when able to tolerate PO meds - follow BP Acute hypoxic respiratory failure - supportive oxygen Tobacco abuse - patient does not want nicotine replacement at this point in time. Thrombocytosis, reactive - follow CBC Thank you for allowing us to participate in the care of this pleasant patient. Do not hesitate to contact us with questions. Someone can be reached from the [facility] [place] hospitalist group all hours of the day at [phone] or via perfect serve.
[2020-03-28] MEDS: PIPERACILLIN-TAZOBACTAM 3.375 GM in SODIUM CHLORIDE 0.9% 100 ML IVPB SCH (18:16)
[2020-03-28] MEDS: FAMOTIDINE 20 MG/2 ML VIAL IV SCH (20:39)
[2020-03-29] MEDS: D5-0.45% NACL WITH KCL 20MEQ/L 1,000 ML IV SCH ×4 (00:28→19:22)
[2020-03-29] MEDS: PIPERACILLIN-TAZOBACTAM 3.375 GM in SODIUM CHLORIDE 0.9% 100 ML IVPB SCH ×3 (00:45→19:22)
[2020-03-29] MEDS: HEPARIN SODIUM,PORCINE 5,000 UNIT/ML 1 ML VIAL SQ SCH ×3 (00:46→19:25)
[2020-03-29] MEDS: HYDROmorphone 1 MG/ML 1 ML SYRINGE IVP PRN ×3 (02:23→08:26)
[2020-03-29 06:38] LABS: Basophils % (A) 0 %; Eosinophils % (A) 0 %; HGB 13.4 gm/dL (13.0-17.5); Lymphocytes # (A) 0.7 k/uL (1.0-4.8); Lymphocytes % (A) 3 %; MCH 32.4 pg (25.0-35.0); MCV 101.2 fL (80.0-100.0); Macrocytosis Slight; Monocytes # (A) 0.3 k/uL (0-1.0); Monocytes % (A) 1 %; Neutrophils # (A) 22.7 k/uL (1.3-7.7); Neutrophils % (A) 95 %; Platelet Count 458 k/uL (150-450); RBC 4.15 m/uL (4.30-5.90); RDW 13.2 % (11.5-15.5); WBC 23.9 k/uL (3.8-10.6)
[2020-03-29 06:53] LABS: African American GFR (CKD) >90 (>60 ml/min/1.73 sqM); Anion Gap 9 mmol/L; Blood Urea Nitrogen 10 mg/dL (9-20); Calcium 8.1 mg/dL (8.4-10.2); Carbon Dioxide 25 mmol/L (22-30); Chloride 102 mmol/L (98-107); Glucose 118 mg/dL (74-99); Non-African American GFR(CKD) >90 (>60 ml/min/1.73 sqM); Potassium 4.4 mmol/L (3.5-5.1); Sodium 136 mmol/L (137-145)
[2020-03-29] MEDS: PANTOPRAZOLE 40 MG/10 ML VIAL IVP SCH (09:08)
[2020-03-29] MEDS: FAMOTIDINE 20 MG/2 ML VIAL IV SCH ×2 (09:08→21:57)
--- NOTE | 2020-03-29 09:51 | P.PN ---
Subjective Progress Note Date: 03/29/20 Principal diagnosis: abdominal pain Patient is a 54-year-old male with recently diagnosed hypertension, he was admitted here from 03/20 through 03/27 to acute diverticulitis with perforation. His white blood cell count had normalized and he was tolerating a diet. He was discharged home on 03/27/2020. He was doing well at home and suddenly at 6 AM on 03/28 he had a severe increase in his abdominal pain. He re- presented to the emergency department where he underwent a CT abdomen and pelvis which showed an increased amount of free air. Dr. Khan was notified. The patient was taken urgently to the operating room and underwent colectomy with diverting colostomy. Patient seen and examined at bedside. His dilaudid wearing off to quick and he is having an increase in pain. He states it is taking away the pain but then it is wearing off in 1 -2 hours. He states that the morphine was working better. No chest pain, no shortness of breath, no nausea, nothing out of ostomy bag currently. Objective - Vital Signs Vital signs: Vital Signs Temp 97.0 F L 03/29/20 05:00 Pulse 93 03/29/20 05:00 Resp 16 03/29/20 05:00 BP 152/91 03/29/20 05:00 Pulse Ox 98 03/29/20 05:00 Intake & Output 03/28/20 03/29/20 03/29/20 18:59 06:59 18:59 Intake Total 4250 600 Output Total 875 1150 Balance 3375 -550 Weight 83.915 kg Intake: IV 4250 Intake, IV Titration 600 Amount D5-0.45% NaCl with KCl 500 20Meq/l 1,000 ml @ 125 mls/hr IV .Q8H [facility] Rx#: [id number] Piperacillin-Tazobactam 3 100 .375 gm In Sodium Chloride 0.9% 100 ml @ 25 mls/hr IVPB Q8HR [facility] Rx# :[id number] Output: Drainage 50 Abdomen 50 Urine 725 1100 Estimated Blood Loss 150 Other: Voiding Method Indwelling Catheter Indwelling Catheter - Exam General: ill appearing, mild distress due to pain, appears at stated age Derm: warm, dry Head: atraumatic, normocephalic, symmetric Eyes: EOMI, no lid lag, anicteric sclera Mouth: no lip lesion, mucus membranes moist Cardiovascular: S1S2 reg, + murmur, positive posterior tibial pulse bilateral, Lungs: Decreased bs bilateral, no rhonchi, no rales , no accessory muscle use Abdominal: soft, +tender to palpation RUQ LUQ and RLQ, no guarding, no appreciable organomegaly Ext: no gross muscle atrophy, no edema, no contractures Neuro: CN II-XI grossly intact, no focal neuro deficits Psych: Alert, oriented, appropriate affect - Labs CBC & Chem 7: 03/29/20 06:04 03/29/20 06:04 Labs: Abnormal Lab Results - Last 24 Hours (Table) 03/28/20 03/28/20 03/28/20 Range/Units 09:15 09:15 10:15 WBC 14.3 H (3.8-10.6) k/uL RBC (4.30-5.90) m/uL MCV (80.0-100.0) fL Plt Count 489 H (150-450) k/uL Neutrophils # (1.3-7.7) k/uL Neutrophils # (Manual) 13.70 H (1.3-7.7) k/uL Lymphocytes # (1.0-4.8) k/uL Lymphocytes # (Manual) 0.43 L (1.0-4.8) k/uL Metamyelocytes # (Man) 0.14 H (0) k/uL Sodium (137-145) mmol/L Glucose 126 H (74-99) mg/dL Calcium (8.4-10.2) mg/dL Urine Protein 1+ H (Negative) Urine Ketones Trace H (Negative) Urine Mucus Occasional H (None) /hpf 03/29/20 03/29/20 Range/Units 06:04 06:04 WBC 23.9 H (3.8-10.6) k/uL RBC 4.15 L (4.30-5.90) m/uL MCV 101.2 H (80.0-100.0) fL Plt Count 458 H (150-450) k/uL Neutrophils # 22.7 H (1.3-7.7) k/uL Neutrophils # (Manual) (1.3-7.7) k/uL Lymphocytes # 0.7 L (1.0-4.8) k/uL Lymphocytes # (Manual) (1.0-4.8) k/uL Metamyelocytes # (Man) (0) k/uL Sodium 136 L (137-145) mmol/L Glucose 118 H (74-99) mg/dL Calcium 8.1 L (8.4-10.2) mg/dL Urine Protein (Negative) Urine Ketones (Negative) Urine Mucus (None) /hpf Microbiology - Last 24 Hours (Table) 03/28/20 14:10 Gram Stain - Preliminary Other - Other Wound Culture - Preliminary 03/28/20 14:10 Anaerobic Culture - Preliminary Peritoneal Fluid Assessment and Plan Assessment: Diverticulitis with abscess and perforation - s/p sigmoid colectomy with colostomy - Zosyn - IV fluids - await cultures - Pain control: Stop dilaudid and start morphine which worked better - NPO - antiemetics - Admitted to surgery HTN, controlled - resume norvasc when able to tolerate PO meds - follow BP Acute hypoxic respiratory failure - supportive oxygen Tobacco abuse - patient does not want nicotine replacement at this point in time. Thrombocytosis, reactive - follow CBC DVT prophylaxis: Heparin Discussed with: patient, nursing Anticipated discharge place:[facility], working on arranging PCP A total of 35 minutes was spent on the care of this complex patient more than 50% of the time was spent in counseling and care coordination.
[2020-03-29] MEDS ORDERED: LORazepam 2 MG/ML INJ IV PRN ×2 (14:34→16:31)
[2020-03-29] MEDS: MORPHINE SULFATE 4 MG/ML SYRINGE IVP PRN ×2 (14:38→19:43)
--- NOTE | 2020-03-29 15:13 | P.PN ---
Subjective Progress Note Date: 03/29/20 CHIEF COMPLAINT: Abdominal pain HISTORY OF PRESENT ILLNESS: 54-year-old male who is status post sigmoid colectomy with end colostomy. Postoperative day #1. Patient examined at the bedside with Dr. Khan. Patient reports his pain is tolerable. He complains of a lot of anxiety. He complains of being hot. Patient is afebrile. Mildly tachycardic. WBC 23.9. PHYSICAL EXAM: VITAL SIGNS: Reviewed. GENERAL: Well-developed in no acute distress. HEENT: No sclera icterus. Extraocular movements grossly intact. Moist buccal mucosa. Head is atraumatic, normocephalic. ABDOMEN: Soft. Nondistended. Appropriate surgical tenderness. Ostomy without stool or gas noted. NEUROLOGIC: Alert and oriented. Cranial nerves II through XII grossly intact. ASSESSMENT: 1. Perforated diverticulitis with abscess PLAN: -Continue NPO for today -Ativan 1 mg every 4 hours PRN for anxiety -Continue Clay catheter today. Anticipate removal tomorrow -Continue antibiotics. Repeat CBC in a.m. -Activity as tolerated -Pain control -Incentive spirometer Nurse practitioner note has been reviewed by physician. Signing provider agrees with the documented findings, assessment, and plan of care. Objective - Vital Signs Vital signs: Vital Signs Temp 98.6 F 03/29/20 11:59 Pulse 107 H 03/29/20 11:59 Resp 17 03/29/20 11:59 BP 172/97 03/29/20 11:59 Pulse Ox 99 03/29/20 11:59 Intake & Output 03/28/20 03/29/20 03/29/20 18:59 06:59 18:59 Intake Total 4250 600 Output Total 875 1150 Balance 3375 -550 Weight 83.915 kg Intake: IV 4250 Intake, IV Titration 600 Amount D5-0.45% NaCl with KCl 500 20Meq/l 1,000 ml @ 125 mls/hr IV .Q8H [facility] Rx#: [id number] Piperacillin-Tazobactam 3 100 .375 gm In Sodium Chloride 0.9% 100 ml @ 25 mls/hr IVPB Q8HR [facility] Rx# :[id number] Output: Drainage 50 Abdomen 50 Urine 725 1100 Estimated Blood Loss 150 Other: Voiding Method Indwelling Catheter Indwelling Catheter - Labs CBC & Chem 7: 03/29/20 06:04 03/29/20 06:04 Labs: Abnormal Lab Results - Last 24 Hours (Table) 03/29/20 03/29/20 Range/Units 06:04 06:04 WBC 23.9 H (3.8-10.6) k/uL RBC 4.15 L (4.30-5.90) m/uL MCV 101.2 H (80.0-100.0) fL Plt Count 458 H (150-450) k/uL Neutrophils # 22.7 H (1.3-7.7) k/uL Lymphocytes # 0.7 L (1.0-4.8) k/uL Sodium 136 L (137-145) mmol/L Glucose 118 H (74-99) mg/dL Calcium 8.1 L (8.4-10.2) mg/dL Microbiology - Last 24 Hours (Table) 03/28/20 14:10 Gram Stain - Preliminary Other - Other Wound Culture - Preliminary 03/28/20 14:10 Anaerobic Culture - Preliminary Peritoneal Fluid
--- NOTE | 2020-03-29 16:57 | XR ---
EXAMINATION TYPE: XR chest 1V portable DATE OF EXAM: 03/29/2020 Comparison: 07/01/2010 Clinical History: 54-year-old male shortness of breath Findings: Slightly low lung volumes with crowded vascular markings. Some strandy atelectasis in the lower lungs . Heart upper limits of normal in size. Aorta and pulmonary vasculature are within normal limits. No ifeanyi consolidation or pleural effusion seen. Impression: Mild hypoventilatory changes and some strandy atelectasis in the lower lungs. No definite acute proce ss.
[2020-03-30] MEDS: PIPERACILLIN-TAZOBACTAM 3.375 GM in SODIUM CHLORIDE 0.9% 100 ML IVPB SCH ×4 (00:08→23:25)
[2020-03-30] MEDS: HEPARIN SODIUM,PORCINE 5,000 UNIT/ML 1 ML VIAL SQ SCH ×4 (00:08→23:25)
[2020-03-30] MEDS: MORPHINE SULFATE 4 MG/ML SYRINGE IVP PRN ×2 (00:09→08:34)
[2020-03-30] MEDS: D5-0.45% NACL WITH KCL 20MEQ/L 1,000 ML IV SCH ×3 (00:20→14:45)
[2020-03-30] MEDS: PANTOPRAZOLE 40 MG/10 ML VIAL IVP SCH (07:52)
[2020-03-30] MEDS: FAMOTIDINE 20 MG/2 ML VIAL IV SCH (07:53)
[2020-03-30 07:58] LABS: Basophils % (A) 0 %; Eosinophils # (A) 0.1 k/uL (0-0.7); Eosinophils % (A) 1 %; HCT 37.5 % (39.0-53.0); HGB 12.2 gm/dL (13.0-17.5); Lymphocytes # (A) 0.6 k/uL (1.0-4.8); Lymphocytes % (A) 3 %; MCH 31.6 pg (25.0-35.0); MCHC 32.6 g/dL (31.0-37.0); MCV 96.8 fL (80.0-100.0); Mean Platelet Volume 7.1; Monocytes # (A) 0.5 k/uL (0-1.0); Monocytes % (A) 2 %; Neutrophils # (A) 20.9 k/uL (1.3-7.7); Neutrophils % (A) 94 %; Platelet Count 402 k/uL (150-450); RBC 3.87 m/uL (4.30-5.90); RDW 13.1 % (11.5-15.5); WBC 22.3 k/uL (3.8-10.6)
[2020-03-30 08:02] LABS: African American GFR (CKD) >90 (>60 ml/min/1.73 sqM); Anion Gap 5 mmol/L; Blood Urea Nitrogen 7 mg/dL (9-20); Calcium 7.8 mg/dL (8.4-10.2); Carbon Dioxide 25 mmol/L (22-30); Chloride 104 mmol/L (98-107); Glucose 115 mg/dL (74-99); Magnesium 2.3 mg/dL (1.6-2.3); Non-African American GFR(CKD) >90 (>60 ml/min/1.73 sqM); Phosphorus 2.3 mg/dL (2.5-4.5); Potassium 4.1 mmol/L (3.5-5.1); Sodium 134 mmol/L (137-145)
--- NOTE | 2020-03-30 11:02 | P.PN ---
Subjective Progress Note Date: 03/30/20 ([facility]) Principal diagnosis: abdominal pain Patient is a 54-year-old male with recently diagnosed hypertension, he was admitted here from 03/20 through 03/27 to acute diverticulitis with perforation. His white blood cell count had normalized and he was tolerating a diet. He was discharged home on 03/27/2020. He was doing well at home and suddenly at 6 AM on 03/28 he had a severe increase in his abdominal pain. He re- presented to the emergency department where he underwent a CT abdomen and pelvis which showed an increased amount of free air. Dr. Khan was notified. The patient was taken urgently to the operating room and underwent colectomy with diverting colostomy. Patient seen and examined at bedside. Pain is much better controlled with morphine and N he has no longer having aware off. He is not having any nausea or vomiting. No significant output through the ostomy. He is having difficulty with his roommate being so warm and is making him feel claustrophobic and anxious. Yesterday he got so anxious due to yelling on the floor he required Ativan which then caused some hallucinations. He is feeling much better today, however he is still struggling with the heat. Objective - Vital Signs Vital signs: Vital Signs Temp 97.9 F 03/30/20 05:00 Pulse 106 H 03/30/20 05:00 Resp 16 03/30/20 05:00 BP 134/84 03/30/20 05:00 Pulse Ox 97 03/30/20 05:00 Intake & Output 03/29/20 03/30/20 03/30/20 18:59 06:59 18:59 Intake Total 1500 Output Total 1700 2350 25 Balance -1700 -850 -25 Intake: Intake, IV Titration 1500 Amount D5-0.45% NaCl with KCl 1500 20Meq/l 1,000 ml @ 125 mls/hr IV .Q8H [facility] Rx#: [id number] Oral 0 Output: Drainage 300 150 25 Abdomen 300 150 25 Urine 1400 2200 Other: Voiding Method Indwelling Catheter Indwelling Catheter Indwelling Catheter - Exam General: ill appearing, no distress, appears at stated age Derm: warm, dry Head: atraumatic, normocephalic, symmetric Eyes: EOMI, no lid lag, anicteric sclera Mouth: no lip lesion, mucus membranes moist Cardiovascular: S1S2 reg, + murmur, positive posterior tibial pulse bilateral, Lungs: Decreased bs bilateral, no rhonchi, no rales , no accessory muscle use Abdominal: soft, +tender to palpation diffucsely, no guarding, no appreciable organomegaly Ext: no gross muscle atrophy, no edema, no contractures Neuro: CN II-XI grossly intact, no focal neuro deficits Psych: Alert, oriented, appropriate affect - Labs CBC & Chem 7: 03/30/20 07:17 03/30/20 07:17 Labs: Abnormal Lab Results - Last 24 Hours (Table) 03/30/20 03/30/20 Range/Units 07:17 07:17 WBC 22.3 H (3.8-10.6) k/uL RBC 3.87 L (4.30-5.90) m/uL Hgb 12.2 L (13.0-17.5) gm/dL Hct 37.5 L (39.0-53.0) % Neutrophils # 20.9 H (1.3-7.7) k/uL Lymphocytes # 0.6 L (1.0-4.8) k/uL Sodium 134 L (137-145) mmol/L BUN 7 L (9-20) mg/dL Glucose 115 H (74-99) mg/dL Calcium 7.8 L (8.4-10.2) mg/dL Phosphorus 2.3 L (2.5-4.5) mg/dL Microbiology - Last 24 Hours (Table) 03/28/20 14:10 Gram Stain - Preliminary Other - Other Wound Culture - Preliminary Assessment and Plan Assessment: Diverticulitis with abscess and perforation - s/p sigmoid colectomy with colostomy - Zosyn - IV fluids - await cultures - Pain control: Morphine - NPO - antiemetics - Admitted to surgery Acute blood loss anemia -Anticipated and expected outcome -Follow CBC HTN, was elevated yesterday - resume norvasc when able to tolerate PO meds - follow BP Acute hypoxic respiratory failure - supportive oxygen Tobacco abuse - patient does not want nicotine replacement at this point in time. Thrombocytosis, resolved DVT prophylaxis: Heparin Discussed with: patient, nursing Anticipated discharge place:[facility], will follow with Genie Rodriguez A total of 25 minutes was spent on the care of this complex patient more than 50% of the time was spent in counseling and care coordination.
--- NOTE | 2020-03-30 12:45 | P.PN ---
Subjective Progress Note Date: 03/30/20 CHIEF COMPLAINT: Abdominal pain HISTORY OF PRESENT ILLNESS: 54-year-old male who is status post sigmoid colectomy with end colostomy. Postoperative day #2. Patient examined at the bedside with Dr. Khan. Patient reports his pain is tolerable. Ostomy without stool or gas noted. White count 22.3. PHYSICAL EXAM: VITAL SIGNS: Reviewed. GENERAL: Well-developed in no acute distress. HEENT: No sclera icterus. Extraocular movements grossly intact. Moist buccal mucosa. Head is atraumatic, normocephalic. ABDOMEN: Soft. Nondistended. Appropriate surgical tenderness. Ostomy without stool or gas noted. NEUROLOGIC: Alert and oriented. Cranial nerves II through XII grossly intact. ASSESSMENT: 1. Perforated diverticulitis with abscess PLAN: -May begin sips of clear liquids -Discontinue Clay catheter -Continue antibiotics. Repeat CBC in a.m. -Activity as tolerated -Pain control -Incentive spirometer Nurse practitioner note has been reviewed by physician. Signing provider agrees with the documented findings, assessment, and plan of care. Objective - Vital Signs Vital signs: Vital Signs Temp 97.9 F 03/30/20 12:10 Pulse 109 H 03/30/20 12:10 Resp 18 03/30/20 12:10 BP 154/94 03/30/20 12:10 Pulse Ox 94 L 03/30/20 12:10 Intake & Output 03/29/20 03/30/20 03/30/20 18:59 06:59 18:59 Intake Total 1500 Output Total 1700 2350 25 Balance -1700 -850 -25 Intake: Intake, IV Titration 1500 Amount D5-0.45% NaCl with KCl 1500 20Meq/l 1,000 ml @ 125 mls/hr IV .Q8H [facility] Rx#: [id number] Oral 0 Output: Drainage 300 150 25 Abdomen 300 150 25 Urine 1400 2200 Other: Voiding Method Indwelling Catheter Indwelling Catheter Indwelling Catheter - Labs CBC & Chem 7: 03/30/20 07:17 03/30/20 07:17 Labs: Abnormal Lab Results - Last 24 Hours (Table) 03/30/20 03/30/20 Range/Units 07:17 07:17 WBC 22.3 H (3.8-10.6) k/uL RBC 3.87 L (4.30-5.90) m/uL Hgb 12.2 L (13.0-17.5) gm/dL Hct 37.5 L (39.0-53.0) % Neutrophils # 20.9 H (1.3-7.7) k/uL Lymphocytes # 0.6 L (1.0-4.8) k/uL Sodium 134 L (137-145) mmol/L BUN 7 L (9-20) mg/dL Glucose 115 H (74-99) mg/dL Calcium 7.8 L (8.4-10.2) mg/dL Phosphorus 2.3 L (2.5-4.5) mg/dL Microbiology - Last 24 Hours (Table) 03/28/20 14:10 Gram Stain - Preliminary Other - Other Wound Culture - Preliminary
[2020-03-30] MEDS: HYDROcodone/APAP 7.5-325MG 1 EACH TAB PO PRN ×2 (14:45→20:58)
[2020-03-31] MEDS: D5-0.45% NACL WITH KCL 20MEQ/L 1,000 ML IV SCH ×4 (01:07→23:52)
[2020-03-31] MEDS: HYDROcodone/APAP 7.5-325MG 1 EACH TAB PO PRN ×4 (02:38→21:55)
[2020-03-31 06:42] LABS: Basophils # (A) 0.1 k/uL (0-0.2); Basophils % (A) 0 %; Eosinophils # (A) 0.3 k/uL (0-0.7); Eosinophils % (A) 2 %; HCT 36.5 % (39.0-53.0); HGB 11.5 gm/dL (13.0-17.5); Lymphocytes # (A) 0.8 k/uL (1.0-4.8); Lymphocytes % (A) 4 %; MCH 30.6 pg (25.0-35.0); MCHC 31.7 g/dL (31.0-37.0); MCV 96.7 fL (80.0-100.0); Mean Platelet Volume 7.4; Monocytes # (A) 0.4 k/uL (0-1.0); Monocytes % (A) 2 %; Neutrophils # (A) 16.6 k/uL (1.3-7.7); Neutrophils % (A) 91 %; Platelet Count 445 k/uL (150-450); RBC 3.77 m/uL (4.30-5.90); WBC 18.3 k/uL (3.8-10.6)
--- NOTE | 2020-03-31 08:01 | P.PN ---
Subjective Progress Note Date: 03/31/20 CHIEF COMPLAINT: Abdominal pain HISTORY OF PRESENT ILLNESS: 54-year-old male who is status post sigmoid colectomy with end colostomy. Postoperative day #3. Patient examined at the bedside with Dr. Khan. Patient reports his pain is tolerable. Ostomy without stool or gas noted. White count 18.3. Mildly tachycardic PHYSICAL EXAM: VITAL SIGNS: Reviewed. GENERAL: Well-developed in no acute distress. HEENT: No sclera icterus. Extraocular movements grossly intact. Moist buccal mucosa. Head is atraumatic, normocephalic. ABDOMEN: Soft. Nondistended. Appropriate surgical tenderness. Ostomy without stool or gas noted. ALEJANDRA drain with serous drainage NEUROLOGIC: Alert and oriented. Cranial nerves II through XII grossly intact. ASSESSMENT: 1. Perforated diverticulitis with abscess PLAN: -Continue clear liquid diet. Await bowel function -Continue antibiotics. Repeat CBC in a.m. -Activity as tolerated -Pain control -Incentive spirometer Nurse practitioner note has been reviewed by physician. Signing provider agrees with the documented findings, assessment, and plan of care. Objective - Vital Signs Vital signs: Vital Signs Temp 98.5 F 03/31/20 01:17 Pulse 108 H 03/31/20 01:17 Resp 16 03/31/20 01:17 BP 146/91 03/31/20 01:17 Pulse Ox 94 L 03/31/20 01:17 Intake & Output 03/30/20 03/31/20 03/31/20 18:59 06:59 18:59 Intake Total 800 Output Total 1470 335 Balance -1470 465 Intake: Intake, IV Titration 800 Amount D5-0.45% NaCl with KCl 800 20Meq/l 1,000 ml @ 125 mls/hr IV .Q8H [facility] Rx#: [id number] Output: Drainage 25 35 Abdomen 25 35 Urine 1425 300 Uretheral (Clay) 1175 Stool 20 Other: Voiding Method Urinal Urinal # Voids 1 2 - Labs CBC & Chem 7: 03/31/20 06:27 03/30/20 07:17 Labs: Abnormal Lab Results - Last 24 Hours (Table) 03/30/20 03/31/20 Range/Units 07:17 06:27 WBC 18.3 H (3.8-10.6) k/uL RBC 3.77 L (4.30-5.90) m/uL Hgb 11.5 L (13.0-17.5) gm/dL Hct 36.5 L (39.0-53.0) % Neutrophils # 16.6 H (1.3-7.7) k/uL Lymphocytes # 0.8 L (1.0-4.8) k/uL Sodium 134 L (137-145) mmol/L BUN 7 L (9-20) mg/dL Glucose 115 H (74-99) mg/dL Calcium 7.8 L (8.4-10.2) mg/dL Phosphorus 2.3 L (2.5-4.5) mg/dL Microbiology - Last 24 Hours (Table) 03/28/20 14:10 Gram Stain - Final Other - Other Wound Culture - Final
[2020-03-31] MEDS: amLODIPine 10 MG TAB PO SCH (08:25)
[2020-03-31] MEDS: PANTOPRAZOLE 40 MG/10 ML VIAL IVP SCH (08:25)
[2020-03-31] MEDS: PIPERACILLIN-TAZOBACTAM 3.375 GM in SODIUM CHLORIDE 0.9% 100 ML IVPB SCH ×3 (08:26→23:52)
[2020-03-31] MEDS: HEPARIN SODIUM,PORCINE 5,000 UNIT/ML 1 ML VIAL SQ SCH ×3 (08:26→23:52)
[2020-03-31] MEDS: METOPROLOL SUCCINATE (ER) 25 MG TAB.ER.24H PO SCH (11:03)
[2020-04-01] MEDS: HYDROcodone/APAP 7.5-325MG 1 EACH TAB PO PRN ×3 (05:02→17:58)
[2020-04-01] MEDS: HEPARIN SODIUM,PORCINE 5,000 UNIT/ML 1 ML VIAL SQ SCH ×2 (08:11→16:30)
[2020-04-01] MEDS: PANTOPRAZOLE 40 MG/10 ML VIAL IVP SCH (08:11)
[2020-04-01] MEDS: METOPROLOL SUCCINATE (ER) 25 MG TAB.ER.24H PO SCH (08:11)
[2020-04-01] MEDS: amLODIPine 10 MG TAB PO SCH (08:11)
[2020-04-01] MEDS: D5-0.45% NACL WITH KCL 20MEQ/L 1,000 ML IV SCH ×2 (08:11→16:30)
[2020-04-01 08:45] LABS: HCT 38.9 % (39.0-53.0); HGB 12.8 gm/dL (13.0-17.5); MCH 32.5 pg (25.0-35.0); MCV 98.6 fL (80.0-100.0); Mean Platelet Volume 7.5; Platelet Count 485 k/uL (150-450); RBC 3.95 m/uL (4.30-5.90); RDW 13.4 % (11.5-15.5); WBC 15.3 k/uL (3.8-10.6)
[2020-04-01] MEDS: PIPERACILLIN-TAZOBACTAM 3.375 GM in SODIUM CHLORIDE 0.9% 100 ML IVPB SCH ×2 (09:45→16:30)
[2020-04-01] MEDS ORDERED: METOPROLOL SUCCINATE (ER) 25 MG TAB.ER.24H PO STA (11:49)
[2020-04-01 13:04] LABS: Band Neutrophils % 1 %; Eosinophils # (M) 0.15 k/uL (0-0.7); Lymphocytes # (M) 0.61 k/uL (1.0-4.8); Metamyelocytes # (M) 0.31 k/uL (0); Metamyelocytes % 2 %; Monocytes # (M) 1.53 k/uL (0-1.0); Myelocytes # (M) 0.61 k/uL (0); Myelocytes % 4 %; Neutrophils % (M) 81 %; Nucleated Red Blood Cells 0 /100 WBC (0-0); Total Cells Counted 200
--- NOTE | 2020-04-01 13:18 | P.PN ---
Subjective Progress Note Date: 04/01/20 Principal diagnosis: Diverticulitis Patient doing well today. Mild tachycardia which seems somewhat chronic for him. White blood cell count improved at 15.3. Some flatus through the ostomy. Tolerating clear liquids. Is hungry for more to eat. Objective - Vital Signs Vital signs: Vital Signs Temp 98 F 04/01/20 07:00 Pulse 111 H 04/01/20 07:00 Resp 16 04/01/20 07:00 BP 151/100 04/01/20 09:55 Pulse Ox 93 L 04/01/20 07:00 Intake & Output 03/31/20 04/01/20 04/01/20 18:59 06:59 18:59 Intake Total 540 1460 Output Total 20 725 5 Balance 520 735 -5 Intake: Intake, IV Titration 1100 Amount D5-0.45% NaCl with KCl 1100 20Meq/l 1,000 ml @ 125 mls/hr IV .Q8H [facility] Rx#: [id number] Oral 540 360 Output: Drainage 20 25 5 Abdomen 20 25 5 Urine 700 Other: Voiding Method Urinal Urinal # Voids 2 1 - Exam Abdomen: Soft, nondistended, dressing clean and dry, mild tenderness, stoma functioning - Labs CBC & Chem 7: 04/01/20 07:48 03/30/20 07:17 Labs: Abnormal Lab Results - Last 24 Hours (Table) 04/01/20 Range/Units 07:48 WBC 15.3 H (3.8-10.6) k/uL RBC 3.95 L (4.30-5.90) m/uL Hgb 12.8 L (13.0-17.5) gm/dL Hct 38.9 L (39.0-53.0) % Plt Count 485 H (150-450) k/uL Neutrophils # (Manual) 12.50 H (1.3-7.7) k/uL Lymphocytes # (Manual) 0.61 L (1.0-4.8) k/uL Monocytes # (Manual) 1.53 H (0-1.0) k/uL Metamyelocytes # (Man) 0.31 H (0) k/uL Myelocytes # (Manual) 0.61 H (0) k/uL Assessment and Plan Plan: Patient doing fairly well. Advance diet to full liquids. Ambulate. Repeat labs tomorrow.
--- NOTE | 2020-04-01 13:19 | P.PN ---
Subjective Principal diagnosis: Abdominal pain. Patient seen and examined at bedside. Patient is sitting up in bed comfortably. Patient's blood pressure continues to be elevated. Metoprolol will be increased to 50 mg daily. Ostomy bag appears clean with no stool. Patient does admit to abdominal cramping and gas was seen in ostomy bag earlier today. Since diet will be advanced by surgery. White blood cell count continues to decline f rom 18.3 to 15.3. Hemoglobin is stable at 12.8. Patient is a 54-year-old male with recently diagnosed hypertension, he was admitted here from 03/20 through 03/27 to acute diverticulitis with perforation. His white blood cell count had normalized and he was tolerating a diet. He was discharged home on 03/27/2020. He was doing well at home and suddenly at 6 AM on 03/28 he had a severe increase in his abdominal pain. He re- presented to the emergency department where he underwent a CT abdomen and pelvis which showed an increased amount of free air. Dr. Khan was notified. The patient was taken urgently to the operating room and underwent colectomy with diverting colostomy. Objective - Vital Signs Vital signs: Vital Signs Temp 98 F 04/01/20 07:00 Pulse 111 H 04/01/20 07:00 Resp 16 04/01/20 07:00 BP 151/100 04/01/20 09:55 Pulse Ox 93 L 04/01/20 07:00 Intake & Output 03/31/20 04/01/20 04/01/20 18:59 06:59 18:59 Intake Total 540 1460 Output Total 20 725 5 Balance 520 735 -5 Intake: Intake, IV Titration 1100 Amount D5-0.45% NaCl with KCl 1100 20Meq/l 1,000 ml @ 125 mls/hr IV .Q8H [facility] Rx#: [id number] Oral 540 360 Output: Drainage 20 25 5 Abdomen 20 25 5 Urine 700 Other: Voiding Method Urinal Urinal # Voids 2 1 - Exam General: [non toxic], [no distress], [appears at stated age] Derm: [warm], [dry] Head: [atraumatic], [normocephalic], [symmetric] Eyes: [EOMI], [no lid lag], [anicteric sclera] Mouth: [no lip lesion], [mucus membranes moist] Cardiovascular: [S1S2 reg], [no murmur], [positive posterior tibial pulse bilate ral], Lungs: [CTA bilateral], [no rhonchi, no rales] , [no accessory muscle use] Abdominal: [soft mild postsurgical tenderness, ostomy bag no stool ], [no appreciable organomegaly] Ext: [no gross muscle atrophy], [no edema], [no contractures] Neuro: [ CN II-XI grossly intact], [no focal neuro deficits] Psych: [Alert], [oriented], [appropriate affect] - Labs CBC & Chem 7: 04/01/20 07:48 03/30/20 07:17 Labs: Abnormal Lab Results - Last 24 Hours (Table) 04/01/20 Range/Units 07:48 WBC 15.3 H (3.8-10.6) k/uL RBC 3.95 L (4.30-5.90) m/uL Hgb 12.8 L (13.0-17.5) gm/dL Hct 38.9 L (39.0-53.0) % Plt Count 485 H (150-450) k/uL Neutrophils # (Manual) 12.50 H (1.3-7.7) k/uL Lymphocytes # (Manual) 0.61 L (1.0-4.8) k/uL Monocytes # (Manual) 1.53 H (0-1.0) k/uL Metamyelocytes # (Man) 0.31 H (0) k/uL Myelocytes # (Manual) 0.61 H (0) k/uL Assessment and Plan Assessment: Diverticulitis with abscess and perforation - s/p sigmoid colectomy with colostomy - Zosyn - IV fluids - Pain control: Morphine and norco - diet advanced - antiemetics - Admitted to surgery Acute blood loss anemia -Anticipated and expected outcome -Follow CBC HTN uncontrolled - norvasc restarted today - increase metoprolol to 50mg daily Acute hypoxic respiratory failure - supportive oxygen Tobacco abuse - patient does not want nicotine replacement at this point in time. GI/DVT prophylaxis
--- NOTE | 2020-04-01 13:19 | P.PN ---
Subjective Principal diagnosis: Abdominal pain Patient seen and examined at bedside. Patient is sitting up in bed comfortably and eating breakfast. Patient is mildly tachycardic with a low-grade fever 99.1F white blood cell count is trending down from 22.3 to 18.3. Patient states that he has some mild cramping and is a abdomen but it is tolerable. Ostomy bag appears clean with no stool. Blood pressure this morning is elevated however t his was taken before medication was given. Patient is a 54-year-old male with recently diagnosed hypertension, he was admitted here from 03/20 through 03/27 to acute diverticulitis with perf oration. His white blood cell count had normalized and he was tolerating a diet. He was discharged home on 03/27/2020. He was doing well at home and suddenly at 6 AM on 03/28 he had a severe increase in his abdominal pain. He re- presented to the emergency department where he underwent a CT abdomen and pelvis which showed an increased amount of free air. Dr. Khan was notified. The patient was taken urgently to the operating room and underwent colectomy with diverting colostomy. Objective - Vital Signs Vital signs: Vital Signs Temp 99.1 F 03/31/20 07:55 Pulse 105 H 03/31/20 07:55 Resp 16 03/31/20 07:55 BP 164/116 03/31/20 07:55 Pulse Ox 94 L 03/31/20 07:55 Intake & Output 03/30/20 03/31/20 03/31/20 18:59 06:59 18:59 Intake Total 800 Output Total 1470 335 10 Balance -1470 465 -10 Intake: Intake, IV Titration 800 Amount D5-0.45% NaCl with KCl 800 20Meq/l 1,000 ml @ 125 mls/hr IV .Q8H [facility] Rx#: [id number] Output: Drainage 25 35 10 Abdomen 25 35 10 Urine 1425 300 Uretheral (Clay) 1175 Stool 20 Other: Voiding Method Urinal Urinal Urinal # Voids 1 2 1 - Exam General: [non toxic], [no distress], [appears at stated age] Derm: [warm], [dry] Head: [atraumatic], [normocephalic], [symmetric] Eyes: [EOMI], [no lid lag], [anicteric sclera] Mouth: [no lip lesion], [mucus membranes moist] Cardiovascular: [S1S2 reg], [no murmur], [positive posterior tibial pulse bilateral], Lungs: [CTA bilateral], [no rhonchi, no rales] , [no accessory muscle use] Abdominal: [soft mild postsurgical tenderness, ostomy bag no stool or gas], [no appreciable organomegaly] Ext: [no gross muscle atrophy], [no edema], [no contractures] Neuro: [ CN II-XI grossly intact], [no focal neuro deficits] Psych: [Alert], [oriented], [appropriate affect] - Labs CBC & Chem 7: 03/31/20 06:27 03/30/20 07:17 Labs: Abnormal Lab Results - Last 24 Hours (Table) 03/31/20 Range/Units 06:27 WBC 18.3 H (3.8-10.6) k/uL RBC 3.77 L (4.30-5.90) m/uL Hgb 11.5 L (13.0-17.5) gm/dL Hct 36.5 L (39.0-53.0) % Neutrophils # 16.6 H (1.3-7.7) k/uL Lymphocytes # 0.8 L (1.0-4.8) k/uL Microbiology - Last 24 Hours (Table) 03/28/20 14:10 Gram Stain - Final Other - Other Wound Culture - Final Assessment and Plan Assessment: Diverticulitis with abscess and perforation - s/p sigmoid colectomy with colostomy - Zosyn - IV fluids - await cultures - Pain control: Morphine and norco - diet advanced - antiemetics - Admitted to surgery Acute blood loss anemia -Anticipated and expected outcome -Follow CBC HTN uncontrolled - norvasc restarted today - follow BP Acute hypoxic respiratory failure - supportive oxygen Tobacco abuse - patient does not want nicotine replacement at this point in time. Thrombocytosis, resolved DVT prophylaxis: Heparin Discussed with: patient Anticipated discharge place[facility], will follow with Genie Rodriguez A total of 25 minutes was spent on the care of this complex patient more than 50% of the time was spent in counseling and care coordination.
[2020-04-01 13:52] VITALS: BMI 26.5
[2020-04-02] MEDS: D5-0.45% NACL WITH KCL 20MEQ/L 1,000 ML IV SCH ×4 (00:10→22:52)
[2020-04-02] MEDS: HYDROcodone/APAP 7.5-325MG 1 EACH TAB PO PRN ×4 (00:10→23:47)
[2020-04-02] MEDS: PIPERACILLIN-TAZOBACTAM 3.375 GM in SODIUM CHLORIDE 0.9% 100 ML IVPB SCH ×4 (00:11→23:47)
[2020-04-02] MEDS: HEPARIN SODIUM,PORCINE 5,000 UNIT/ML 1 ML VIAL SQ SCH ×4 (00:12→23:47)
[2020-04-02] MEDS: PANTOPRAZOLE 40 MG TABLET PO SCH (07:04)
[2020-04-02] MEDS: METOPROLOL SUCCINATE (ER) 50 MG TAB.ER.24H PO SCH (07:04)
[2020-04-02] MEDS: amLODIPine 10 MG TAB PO SCH (07:05)
[2020-04-02 08:06] LABS: African American GFR (CKD) >90 (>60 ml/min/1.73 sqM); Anion Gap 8 mmol/L; Blood Urea Nitrogen 6 mg/dL (9-20); Calcium 8.6 mg/dL (8.4-10.2); Carbon Dioxide 24 mmol/L (22-30); Chloride 102 mmol/L (98-107); Glucose 109 mg/dL (74-99); Non-African American GFR(CKD) >90 (>60 ml/min/1.73 sqM); Potassium 5.2 mmol/L (3.5-5.1); Sodium 134 mmol/L (137-145)
[2020-04-02 08:13] LABS: HCT 39.4 % (39.0-53.0); MCH 32.5 pg (25.0-35.0); MCHC 33.1 g/dL (31.0-37.0); MCV 98.3 fL (80.0-100.0); Mean Platelet Volume 7.5; Platelet Count 541 k/uL (150-450); RBC 4.01 m/uL (4.30-5.90); RDW 13.1 % (11.5-15.5)
[2020-04-02 10:05] LABS: Band Neutrophils % 1 %; Eosinophils # (M) 0.26 k/uL (0-0.7); Metamyelocytes # (M) 0.13 k/uL (0); Metamyelocytes % 1 %; Monocytes # (M) 0.78 k/uL (0-1.0); Myelocytes # (M) 0.39 k/uL (0); Myelocytes % 3 %; Neutrophils % (M) 79 %; Nucleated Red Blood Cells 0 /100 WBC (0-0); Total Cells Counted 200
[2020-04-02 10:06] LABS: Large Platelets Present
--- NOTE | 2020-04-02 11:00 | P.PN ---
Subjective Progress Note Date: 04/02/20 Principal diagnosis: Diverticulitis Patient doing well today. White blood cell count improved to 13. No stool. Still passing gas. Tolerating full liquids. Objective - Vital Signs Vital signs: Vital Signs Temp 98.6 F 04/02/20 07:00 Pulse 93 04/02/20 07:00 Resp 18 04/02/20 07:00 BP 161/99 04/02/20 07:00 Pulse Ox 93 L 04/02/20 07:00 Intake & Output 04/01/20 04/02/20 04/02/20 18:59 06:59 18:59 Intake Total 1100 Output Total 20 970 20 Balance -20 130 -20 Weight 83.915 kg Intake: Intake, IV Titration 800 Amount D5-0.45% NaCl with KCl 700 20Meq/l 1,000 ml @ 125 mls/hr IV .Q8H [facility] Rx#: [id number] Piperacillin-Tazobactam 3 100 .375 gm In Sodium Chloride 0.9% 100 ml @ 25 mls/hr IVPB Q8HR [facility] Rx# :[id number] Oral 300 Output: Drainage 20 20 20 Abdomen 20 20 20 Urine 950 Other: Voiding Method Urinal # Voids 2 - Exam Abdomen: Soft, nondistended, dressing clean and dry, keith being changed, ostomy pink - Labs CBC & Chem 7: 04/02/20 07:26 04/02/20 10:38 Labs: Abnormal Lab Results - Last 24 Hours (Table) 04/01/20 04/02/20 04/02/20 Range/Units 07:48 07:26 07:26 WBC 13.0 H (3.8-10.6) k/uL RBC 4.01 L (4.30-5.90) m/uL Plt Count 541 H (150-450) k/uL Neutrophils # (Manual) 12.50 H 10.40 H (1.3-7.7) k/uL Lymphocytes # (Manual) 0.61 L (1.0-4.8) k/uL Monocytes # (Manual) 1.53 H (0-1.0) k/uL Metamyelocytes # (Man) 0.31 H 0.13 H (0) k/uL Myelocytes # (Manual) 0.61 H 0.39 H (0) k/uL Sodium 134 L (137-145) mmol/L Potassium 5.2 H (3.5-5.1) mmol/L BUN 6 L (9-20) mg/dL Creatinine 0.64 L (0.66-1.25) mg/dL Glucose 109 H (74-99) mg/dL Assessment and Plan (1) Diverticulitis of colon with perforation Narrative/Plan: Patient doing fairly well. Continue full liquids. Ambulate. Current Visit: Yes Status: Acute Code(s): K57.20 - DVTRCLI OF LG INT W PERFORATION AND ABSCESS W/O BLEEDING SNOMED Code(s): 28388608
--- NOTE | 2020-04-02 12:50 | P.PN ---
Subjective Progress Note Date: 04/02/20 Principal diagnosis: Abdominal pain. Patient seen and examined at bedside. Patient is sitting up in bed comfortably. Patient is passing gas through ostomy bag.. Patient's white blood cell count is trending down from 15.3 to 13.0. Patient denies chest pain shortness of breath nausea vomiting fevers or chills. Blood pressure this morning has improved at 134/84. Patient is a 54-year-old male with recently diagnosed hypertension, he was admitted here from 03/20 through 03/27 to acute diverticulitis with perforation. His white blood cell count had normalized and he was tolerating a diet. He was discharged home on 03/27/2020. He was doing well at home and suddenly at 6 AM on 03/28 he had a severe increase in his abdominal pain. He re- presented to the emergency department where he underwent a CT abdomen and pelvis which showed an increased amount of free air. Dr. Khan was notified. The patient was taken urgently to the operating room and underwent colectomy with diverting colostomy. Objective - Vital Signs Vital signs: Vital Signs Temp 98.6 F 04/02/20 07:00 Pulse 93 04/02/20 07:00 Resp 18 04/02/20 07:00 BP 161/99 04/02/20 07:00 Pulse Ox 93 L 04/02/20 07:00 Intake & Output 04/01/20 04/02/20 04/02/20 18:59 06:59 18:59 Intake Total 1100 Output Total 20 970 20 Balance -20 130 -20 Weight 83.915 kg Intake: Intake, IV Titration 800 Amount D5-0.45% NaCl with KCl 700 20Meq/l 1,000 ml @ 125 mls/hr IV .Q8H [facility] Rx#: [id number] Piperacillin-Tazobactam 3 100 .375 gm In Sodium Chloride 0.9% 100 ml @ 25 mls/hr IVPB Q8HR [facility] Rx# :[id number] Oral 300 Output: Drainage 20 20 20 Abdomen 20 20 20 Urine 950 Other: Voiding Method Urinal # Voids 2 - Exam General: [non toxic], [no distress], [appears at stated age] Derm: [warm], [dry] Head: [atraumatic], [normocephalic], [symmetric] Eyes: [EOMI], [no lid lag], [anicteric sclera] Mouth: [no lip lesion], [mucus membranes moist] Cardiovascular: [S1S2 reg], [no murmur], [positive posterior tibial pulse bilateral], Lungs: [CTA bilateral], [no rhonchi, no rales] , [no accessory muscle use] Abdominal: [soft mild postsurgical tenderness, ostomy bag no stool or gas], [no appreciable organomegaly] Ext: [no gross muscle atrophy], [no edema], [no contractures] Neuro: [ CN II-XI grossly intact], [no focal neuro deficits] Psych: [Alert], [oriented], [appropriate affect] . - Labs CBC & Chem 7: 04/02/20 07:26 04/02/20 10:38 Labs: Abnormal Lab Results - Last 24 Hours (Table) 04/01/20 04/02/20 04/02/20 Range/Units 07:48 07:26 07:26 WBC 13.0 H (3.8-10.6) k/uL RBC 4.01 L (4.30-5.90) m/uL Plt Count 541 H (150-450) k/uL Neutrophils # (Manual) 12.50 H 10.40 H (1.3-7.7) k/uL Lymphocytes # (Manual) 0.61 L (1.0-4.8) k/uL Monocytes # (Manual) 1.53 H (0-1.0) k/uL Metamyelocytes # (Man) 0.31 H 0.13 H (0) k/uL Myelocytes # (Manual) 0.61 H 0.39 H (0) k/uL Sodium 134 L (137-145) mmol/L Potassium 5.2 H (3.5-5.1) mmol/L BUN 6 L (9-20) mg/dL Creatinine 0.64 L (0.66-1.25) mg/dL Glucose 109 H (74-99) mg/dL Assessment and Plan Assessment: Diverticulitis with abscess and perforation - s/p sigmoid colectomy with colostomy - Zosyn - IV fluids - await cultures - Pain control: Morphine and norco - diet advanced - antiemetics - Admitted to surgery Acute blood loss anemia resolved -Follow CBC HTN improved - continue amlodipine and metoprolol - follow BP Acute hypoxic respiratory failure - supportive oxygen Tobacco abuse - patient does not want nicotine replacement at this point in time. Thrombocytosis, reactive DVT prophylaxis
[2020-04-02] MEDS: MORPHINE SULFATE 4 MG/ML SYRINGE IVP PRN (17:39)
[2020-04-03] MEDS: D5-0.45% NACL WITH KCL 20MEQ/L 1,000 ML IV SCH (06:31)
[2020-04-03 07:30] LABS: Basophils # (A) 0.1 k/uL (0-0.2); Basophils % (A) 1 %; Eosinophils # (A) 0.3 k/uL (0-0.7); Eosinophils % (A) 2 %; HCT 38.6 % (39.0-53.0); Lymphocytes # (A) 0.9 k/uL (1.0-4.8); Lymphocytes % (A) 8 %; MCH 30.5 pg (25.0-35.0); MCHC 31.2 g/dL (31.0-37.0); MCV 97.8 fL (80.0-100.0); Mean Platelet Volume 7.2; Monocytes # (A) 0.6 k/uL (0-1.0); Monocytes % (A) 5 %; Neutrophils # (A) 10.1 k/uL (1.3-7.7); Neutrophils % (A) 84 %; Platelet Count 551 k/uL (150-450); RBC 3.95 m/uL (4.30-5.90); WBC 12.1 k/uL (3.8-10.6)
[2020-04-03] MEDS: PANTOPRAZOLE 40 MG TABLET PO SCH (09:00)
[2020-04-03] MEDS: amLODIPine 10 MG TAB PO SCH (09:00)
[2020-04-03] MEDS: PIPERACILLIN-TAZOBACTAM 3.375 GM in SODIUM CHLORIDE 0.9% 100 ML IVPB SCH ×3 (09:01→23:24)
[2020-04-03] MEDS: HEPARIN SODIUM,PORCINE 5,000 UNIT/ML 1 ML VIAL SQ SCH ×3 (09:01→23:24)
[2020-04-03] MEDS: METOPROLOL SUCCINATE (ER) 50 MG TAB.ER.24H PO SCH (09:01)
--- NOTE | 2020-04-03 10:32 | P.PN ---
Progress Note - Text Progress Note Date: 04/03/20 The patient feels well. He has had a large amount of gas and some liquid stool in his colostomy bag over the weekend. He has minimal Deniz pain. He feels well overall. On exam his vital signs are stable. Abdomen soft. Incision sites clean dry intact. Stoma is pink. Status post sigmoid colectomy for perforated diverticulitis. Patient continue receive IV antibiotic. We will advance his diet. Anticipate discharge home tomorrow.
[2020-04-03 10:49] LABS: African American GFR (CKD) >90 (>60 ml/min/1.73 sqM); Anion Gap 5 mmol/L; Blood Urea Nitrogen 4 mg/dL (9-20); Calcium 8.8 mg/dL (8.4-10.2); Carbon Dioxide 26 mmol/L (22-30); Chloride 103 mmol/L (98-107); Glucose 111 mg/dL (74-99); Non-African American GFR(CKD) >90 (>60 ml/min/1.73 sqM); Potassium 5.8 mmol/L (3.5-5.1); Sodium 134 mmol/L (137-145)
--- NOTE | 2020-04-03 12:50 | P.PN ---
Subjective Progress Note Date: 04/03/20 (delayed charting seen at 10am) Principal diagnosis: abdominal pain Patient is a 54-year-old male with recently diagnosed hypertension, he was admitted here from 03/20 through 03/27 to acute diverticulitis with perforation. His white blood cell count had normalized and he was tolerating a diet. He was discharged home on 03/27/2020. He was doing well at home and suddenly at 6 AM on 03/28 he had a severe increase in his abdominal pain. He re- presented to the emergency department where he underwent a CT abdomen and pelvis which showed an increased amount of free air. Dr. Khan was notified. The patient was taken urgently to the operating room and underwent colectomy with diverting colostomy. Patient seen and examined at bedside. Pain is well controlled. He complains of feeling very tired after starting the metoprolol yesterday, he slept mostly today, he is having some muscle fatigue, and he does not like this medication. He denies any nausea or vomiting, he has had lots of gas in his colostomy bag but no stool. No chest pain or shortness of breath. Objective - Vital Signs Vital signs: Vital Signs Temp 98.0 F 04/03/20 07:00 Pulse 90 04/03/20 07:00 Resp 17 04/03/20 07:00 BP 130/90 04/03/20 10:13 Pulse Ox 94 L 04/03/20 07:00 Intake & Output 04/02/20 04/03/20 04/03/20 18:59 06:59 18:59 Intake Total 1445 650 Output Total 25 1910 40 Balance -25 -465 610 Intake: Intake, IV Titration 1325 650 Amount D5-0.45% NaCl with KCl 1225 650 20Meq/l 1,000 ml @ 125 mls/hr IV .Q8H [facility] Rx#: [id number] Piperacillin-Tazobactam 3 100 .375 gm In Sodium Chloride 0.9% 100 ml @ 25 mls/hr IVPB Q8HR [facility] Rx# :[id number] Oral 120 Output: Drainage 25 10 10 Abdomen 25 10 10 Urine 1900 Stool 30 Other: Voiding Method Urinal Urinal # Voids 3 1 1 - Exam General: Nontoxic, no distress, appears at stated age Derm: warm, dry Head: atraumatic, normocephalic, symmetric Eyes: EOMI, no lid lag, anicteric sclera Mouth: no lip lesion, mucus membranes moist Cardiovascular: S1S2 reg, + murmur, positive posterior tibial pulse bilateral, Lungs: Decreased bs bilateral, no rhonchi, no rales , no accessory muscle use Abdominal: soft, nontender to palpation, no guarding, no appreciable organomegaly Ext: no gross muscle atrophy, no edema, no contractures Neuro: CN II-XI grossly intact, no focal neuro deficits Psych: Alert, oriented, appropriate affect - Labs CBC & Chem 7: 04/03/20 06:54 04/03/20 06:54 Labs: Abnormal Lab Results - Last 24 Hours (Table) 04/03/20 04/03/20 Range/Units 06:54 06:54 WBC 12.1 H (3.8-10.6) k/uL RBC 3.95 L (4.30-5.90) m/uL Hgb 12.0 L (13.0-17.5) gm/dL Hct 38.6 L (39.0-53.0) % Plt Count 551 H (150-450) k/uL Neutrophils # 10.1 H (1.3-7.7) k/uL Lymphocytes # 0.9 L (1.0-4.8) k/uL Sodium 134 L (137-145) mmol/L Potassium 5.8 H (3.5-5.1) mmol/L BUN 4 L (9-20) mg/dL Glucose 111 H (74-99) mg/dL Microbiology - Last 24 Hours (Table) 03/28/20 14:10 Anaerobic Culture - Final Peritoneal Fluid Assessment and Plan Assessment: Diverticulitis with abscess and perforation - s/p sigmoid colectomy with colostomy - Zosyn - IV fluids -Cultures negative to date - Pain control: Morphine and [place] -Diet advanced to regular today by surgery -antiemetics - Admitted to surgery Hyperkalemia -Secondary to IV fluids with potassium -Transition IV fluids normal saline -Recheck potassium at 1830 -Further recommendations to follow HTN, was elevated yesterday - Continue with Norvasc, stop metoprolol secondary to intolerance - If potassium corrects itself consider lisinopril versus hydrochlorothiazide - follow BP Acute blood loss anemia -Anticipated and expected outcome -Follow CBC Acute hypoxic respiratory failure - supportive oxygen Tobacco abuse - patient does not want nicotine replacement at this point in time. Thrombocytosis, reactive DVT prophylaxis: Heparin Discussed with: patient, nursing Anticipated discharge place:home health, will follow with Genie Rdoriguez A total of 25 minutes was spent on the care of this complex patient more than 5 0% of the time was spent in counseling and care coordination.
[2020-04-03] MEDS: SODIUM CHLORIDE 0.9% 1,000 ML IV SCH ×2 (12:51→23:24)
[2020-04-03] MEDS: HYDROcodone/APAP 7.5-325MG 1 EACH TAB PO PRN ×2 (16:25→22:13)
[2020-04-03 18:53] LABS: African American GFR (CKD) >90 (>60 ml/min/1.73 sqM); Anion Gap 9 mmol/L; Blood Urea Nitrogen 5 mg/dL (9-20); Carbon Dioxide 25 mmol/L (22-30); Chloride 101 mmol/L (98-107); Glucose 116 mg/dL (74-99); Non-African American GFR(CKD) >90 (>60 ml/min/1.73 sqM); Potassium 4.6 mmol/L (3.5-5.1); Sodium 135 mmol/L (137-145)
[2020-04-04] MEDS: HYDROcodone/APAP 7.5-325MG 1 EACH TAB PO PRN ×4 (04:39→23:48)
[2020-04-04] MEDS: amLODIPine 10 MG TAB PO SCH (08:08)
[2020-04-04] MEDS: HEPARIN SODIUM,PORCINE 5,000 UNIT/ML 1 ML VIAL SQ SCH ×3 (08:08→23:39)
[2020-04-04] MEDS: PANTOPRAZOLE 40 MG TABLET PO SCH (08:08)
[2020-04-04] MEDS: PIPERACILLIN-TAZOBACTAM 3.375 GM in SODIUM CHLORIDE 0.9% 100 ML IVPB SCH ×3 (08:09→23:40)
[2020-04-04 08:42] LABS: African American GFR (CKD) >90 (>60 ml/min/1.73 sqM); Anion Gap 8 mmol/L; Blood Urea Nitrogen 6 mg/dL (9-20); Carbon Dioxide 27 mmol/L (22-30); Chloride 102 mmol/L (98-107); Glucose 102 mg/dL (74-99); Non-African American GFR(CKD) >90 (>60 ml/min/1.73 sqM); Potassium 5.3 mmol/L (3.5-5.1); Sodium 137 mmol/L (137-145)
--- NOTE | 2020-04-04 11:43 | P.PN ---
Subjective Progress Note Date: 04/04/20 Principal diagnosis: abdominal pain Patient doing well today. He denied having any abdominal pain, nausea or vomiting. No fevers or chills. No overnight events. Objective - Vital Signs Vital signs: Vital Signs Temp 97.7 F 04/04/20 07:00 Pulse 85 04/04/20 08:08 Resp 16 04/04/20 08:08 BP 131/88 04/04/20 07:00 Pulse Ox 96 04/04/20 07:00 Intake & Output 04/03/20 04/04/20 04/04/20 18:59 06:59 18:59 Intake Total 1150 1350 Output Total 40 25 20 Balance 1110 1325 -20 Intake: Intake, IV Titration 650 1350 Amount D5-0.45% NaCl with KCl 650 20Meq/l 1,000 ml @ 125 mls/hr IV .Q8H [facility] Rx#: [id number] Piperacillin-Tazobactam 3 100 .375 gm In Sodium Chloride 0.9% 100 ml @ 25 mls/hr IVPB Q8HR [facility] Rx# :[id number] Sodium Chloride 0.9% 1, 1250 000 ml @ 75 mls/hr IV . [id number] [facility] Rx#:[id number] Oral 500 Output: Drainage 10 25 Abdomen 10 25 Stool 30 20 Other: Voiding Method Urinal Urinal # Voids 1 2 - Exam General: Nontoxic, no distress, appears at stated age Derm: warm, dry Head: atraumatic, normocephalic, symmetric Eyes: EOMI, no lid lag, anicteric sclera Mouth: no lip lesion, mucus membranes moist Cardiovascular: S1S2 reg, + murmur, positive posterior tibial pulse bilateral, Lungs: Decreased bs bilateral, no rhonchi, no rales , no accessory muscle use Abdominal: soft, nontender to palpation, no guarding, no appreciable organomegaly Ext: no gross muscle atrophy, no edema, no contractures Neuro: CN II-XI grossly intact, no focal neuro deficits Psych: Alert, oriented, appropriate affect - Labs CBC & Chem 7: 04/03/20 06:54 04/04/20 07:39 Labs: Abnormal Lab Results - Last 24 Hours (Table) 04/03/20 04/04/20 Range/Units 18:20 07:39 Sodium 135 L (137-145) mmol/L Potassium 5.3 H (3.5-5.1) mmol/L BUN 5 L 6 L (9-20) mg/dL Glucose 116 H 102 H (74-99) mg/dL Assessment and Plan Plan: Diverticulitis with abscess and perforation - s/p sigmoid colectomy with colostomy - Zosyn - IV fluids -Cultures negative to date - Pain control: Morphine and [place] -Diet advanced to regular today by surgery -antiemetics Hyperkalemia -Secondary to IV fluids with potassium -Transition IV fluids normal saline -Improved HTN, was elevated yesterday - Continue with Norvasc, stop metoprolol secondary to intolerance - If potassium improve consider switching to lisinopril versus hydrochlorothiazide outpatient - follow BP Acute blood loss anemia -Anticipated and expected outcome -Follow CBC Acute hypoxic respiratory failure - supportive oxygen Tobacco abuse - patient does not want nicotine replacement at this point in time. Thrombocytosis, reactive DVT prophylaxis: Heparin Discussed with: patient, nursing Anticipated discharge place:home health, will follow with Genie Rodriguez A total of 25 minutes was spent on the care of this complex patient more than 50% of the time was spent in counseling and care coordination.
[2020-04-04] MEDS: SODIUM CHLORIDE 0.9% 1,000 ML IV SCH (16:13)
--- NOTE | 2020-04-04 18:22 | P.PN ---
Progress Note - Text Progress Note Date: 04/04/20 The patient is doing well. His incisional pain is improved. He has stool in his colostomy bag. On exam his vital signs are stable. His abdomen soft. Stoma is function. Patient is status post sigmoid colectomy for perforated diverticula is. We anticipate discharge home tomorrow.
[2020-04-05] MEDS: SODIUM CHLORIDE 0.9% 1,000 ML IV SCH (00:06)
[2020-04-05] MEDS: HYDROcodone/APAP 7.5-325MG 1 EACH TAB PO PRN ×2 (05:27→12:15)
[2020-04-05] MEDS: PIPERACILLIN-TAZOBACTAM 3.375 GM in SODIUM CHLORIDE 0.9% 100 ML IVPB SCH (08:38)
[2020-04-05] MEDS: HEPARIN SODIUM,PORCINE 5,000 UNIT/ML 1 ML VIAL SQ SCH (08:38)
[2020-04-05] MEDS: PANTOPRAZOLE 40 MG TABLET PO SCH (08:39)
[2020-04-05] MEDS: amLODIPine 10 MG TAB PO SCH (08:39)
[2020-04-05 09:11] LABS: African American GFR (CKD) >90 (>60 ml/min/1.73 sqM); Anion Gap 8 mmol/L; Blood Urea Nitrogen 8 mg/dL (9-20); Calcium 8.5 mg/dL (8.4-10.2); Carbon Dioxide 25 mmol/L (22-30); Chloride 101 mmol/L (98-107); Glucose 88 mg/dL (74-99); Non-African American GFR(CKD) >90 (>60 ml/min/1.73 sqM); Potassium 5.1 mmol/L (3.5-5.1); Sodium 134 mmol/L (137-145)
[2020-04-05 15:05] VITALS: BP 121/80; PULSE 100; RESP 16; TEMP 98.3
--- NOTE | 2020-04-05 15:38 | P.DS ---
Providers Date of admission: 03/28/20 11:15 Expected date of discharge: 04/05/20 Attending physician: Bhupendra Khan Consults: 03/28/20 11:28 Consult Physician Routine Consulting Provider: Shae Mckeon Consult Reason/Comments: medical management Do you want consulting provider notified?: Yes 03/28/20 14:16 Consult Physician Routine Consulting Provider: Shae Mckeon Consult Reason/Comments: Seng management Do you want consulting provider notified?: Yes Primary care physician: Stated None Hospital Course: This 54-year-old male who was admitted to the hospital with perforated diverticula is. Patient underwent sigmoid colectomy with colostomy. Patient did well postoperatively. Please see hospital chart for details. Procedures: Sigmoid colectomy with end colostomy Patient Condition at Discharge: Good Plan - Discharge Summary Discharge Rx Participant: No New Discharge Prescriptions: New Hydrocodone/Acetaminophen [Hammett 5-325] 1 tab PO Q6HR PRN #10 tab PRN Reason: Pain Levofloxacin [Levaquin] 750 mg PO DAILY 7 Days #7 tab amLODIPine [Norvasc] 10 mg PO DAILY 30 Days #30 tab Discontinued Ciprofloxacin HCl [Cipro] 500 mg PO Q12H #20 tab metroNIDAZOLE [Flagyl] 500 mg PO TID #30 tab amLODIPine [Norvasc] 10 mg PO DAILY #30 tab Discharge Medication List Hydrocodone/Acetaminophen [Hammett 5-325] 1 tab PO Q6HR PRN #10 tab 03/31/20 [Rx] Levofloxacin [Levaquin] 750 mg PO DAILY 7 Days #7 tab 04/05/20 [Rx] amLODIPine [Norvasc] 10 mg PO DAILY 30 Days #30 tab 04/05/20 [Rx] Follow up Appointment(s)/Referral(s): Genie Rodriguez NPC [REFERRING] - 04/11/20 2:30 pm (Please arrive at 2:00pm to fill out new patient paperwork to be seen at 2pm. ) [facility], [NON-STAFF] - None,Stated [Primary Care Provider] - As Needed Bhupendra Khan MD [STAFF PHYSICIAN] - 04/13/20 2:15 pm Patient Instructions/Handouts: Diverticulitis (GEN), Colostomy Care (GEN) Activity/Diet/Wound Care/Special Instructions: No driving while taking Hammett No lifting over 10 pounds You may shower. No soaking or tub baths Very light activity until you are reevaluated at your follow up appointment with your surgeon
--- NOTE | 2020-04-06 08:33 | CDI ---
Documentation Clarification Form Date: 04/06/20 From: Angelika Penn Phone: If you have a question about this query, please contact Priyanka Brantley, [employer] at [phone] between 8am and 5pm. Admit Date: 03/28/20 Discharge Date:04/05/20 Patient Name: Price Steele Visit Number: [id number] ATTENTION: The Clinical Documentation Specialists (CDI) and [facility] Coding Staff appreciate your assistance in clarifying documentation. Please respond to the clarification below the line at the bottom and electronically sign. The CDI & [facility] Coding staff will review the response and follow-up if needed. Please note: Queries are made part of the Legal Health Record. If you have any questions, please contact the author of this message via ITS. Dear Dr. Bender The patient presented with the following: perforated diverticulitis. Documentation in your 03/31 & 04/01 progress notes states HTN uncontrolled. History/Risk Factors: Hypertension, anxiety, acute hypoxic respiratory failure, perforated diverticulitis Clinical Indicators: Elevated blood pressure Vital Signs: T. 98.7, P. 108, R. 18; Blood Pressure: 03/31/20 - 164/116, 168/115, 149/97, 142/90. 04/01/20 - 168/101 Treatment: Norvasc restarted 10 mg PO Q 6H, Metoprolol increased to 50 mg daily In your professional opinion, can you please clarify the uncontrolled hypertension? Crisis Emergency Urgency Uncontrolled Hypertension Ruled Out Other, please specify Unable to determine Hypertensive urgency MTDD
== END 2020-04-05 15:39 | disposition home health service (06) | DRG 329 ==
LOC: EC 08:48 → 5NMEDONC 11:15 → 4SSUR 03-30 16:32
PROVIDERS: ADMIT Surgery; ATTEND Surgery
PROC: 0DTN0ZZ Resection of Sigmoid Colon, Open Approach (ICD-10-PCS; principal; 2020-03-28 12:50)
DX: K57.20 Diverticulitis of large intestine with perforation and abscess without bleeding (principal); J96.01 Acute respiratory failure with hypoxia; D62 Acute posthemorrhagic anemia; R44.3 Hallucinations, unspecified; E87.5 Hyperkalemia; F17.200 Nicotine dependence, unspecified, uncomplicated; K43.9 Ventral hernia without obstruction or gangrene; F40.240 Claustrophobia; I10 Essential (primary) hypertension; T42.4X5A Adverse effect of benzodiazepines, initial encounter; I16.0 Hypertensive urgency; F41.9 Anxiety disorder, unspecified; Z11.59 Encounter for screening for other viral diseases; Z79.899 Other long term (current) drug therapy; Z82.49 Family history of ischemic heart disease and other diseases of the circulatory system; Y92.239 Unspecified place in hospital as the place of occurrence of the external cause
CPT/HCPCS: 36415; 71045; 74177; 80048; 80053; 81001; 82150; 83605; 83690; 83735; 84100; 84132; 85025; 86850; 86900; 86901; 87070; 87075; 87205; 88307; 96361; 96374; 96375; 99285

== ENCOUNTER → 2020-07-14 | Outpatient (CLI) | payer BC ==
[2020-07-14 12:24] LABS: Potassium 4.4 mmol/L (3.5-5.1)
[2020-07-14 12:27] LABS: HCT 44.1 % (39.0-53.0); HGB 14.8 gm/dL (13.0-17.5); MCH 31.2 pg (25.0-35.0); MCHC 33.6 g/dL (31.0-37.0); MCV 92.8 fL (80.0-100.0); Mean Platelet Volume 8.6; Platelet Count 228 k/uL (150-450); RBC 4.75 m/uL (4.30-5.90); WBC 6.1 k/uL (3.8-10.6)
== END | disposition home or self-care (01) ==
LOC: LABPAT 10:24
PROVIDERS: ATTEND Surgery
DX: Z01.818 Encounter for other preprocedural examination (principal); K57.33 Diverticulitis of large intestine without perforation or abscess with bleeding
CPT/HCPCS: 36415; 80051; 85027; 86850; 86900; 86901; 93005

== ENCOUNTER → 2020-07-20 | Day surgery (SDC) | payer BC ==
[2020-07-17 12:08] VITALS: BMI 25.8
[~2020-07-20] MED LIST: ACETAMINOPHEN TAB 500 MG TAB ONE; HEPARIN SODIUM,PORCINE 5,000 UNIT/ML 1 ML VIAL ONE; LACTATED RINGERS 1,000 ML IV SCH; LIDOCAINE 1% (10MG/ML) FOR IV START INTRADERMA PRN; ONDANSETRON 4 MG/2 ML VIAL ONE; PROPOFOL 10 MG/ML 20 ML VIAL IV ONE
[2020-07-20 08:25] VITALS: RESP 16; TEMP 97.8
--- NOTE | 2020-07-20 09:24 | P.GSHP ---
History of Present Illness H&P Date: 07/20/20 Chief Complaint: History of perforated diverticulitis This a 54-year-old male who presents today for colonoscopy. Patient has history of perforated diverticula is. He underwent reversal colostomy tomorrow. Past Medical History Past Medical History: Hypertension Additional Past Medical History / Comment(s): DIVERTICULITIS WITH PERFORATION & COLOSTOMY (03/28/20). History of Any Multi-Drug Resistant Organisms: None Reported Past Surgical History: Bowel Resection, Orthopedic Surgery Additional Past Surgical History / Comment(s): left elbow fracture repair, left knee washout and extensive stitches. Sigmoid colectomy with end colostomy. Past Anesthesia/Blood Transfusion Reactions: No Reported Reaction Past Psychological History: No Psychological Hx Reported Past Alcohol Use History: Occasional Past Drug Use History: None Reported - Past Family History Father Additional Family Medical History / Comment(s): Aortic aneurysm Medications and Allergies Home Medications Medication Instructions Recorded Confirmed Type Multivit-Min/Folic/Vit K/Lycop 1 each PO DAILY 07/17/20 07/20/20 History [Men's Multivitamin Tablet] amLODIPine [Norvasc] 10 mg PO W/SUPPER 07/17/20 07/20/20 History Allergies Allergy/AdvReac Type Severity Reaction Status Date / Time No Known Allergies Allergy Verified 07/17/20 11:33 Surgical - Exam Vital Signs Temp Pulse Resp BP Pulse Ox 97.8 F 84 16 156/89 97 07/20/20 08:21 07/20/20 08:21 07/20/20 08:21 07/20/20 08:21 07/20/20 08:21 - General well developed, well nourished, no distress - Eyes PERRL - ENT normal pinna - Neck no masses - Respiratory normal expansion - Cardiovascular Rhythm: regular - Abdomen Colostomy left lower quadrant Abdomen: soft Assessment and Plan Assessment: History of perforated diverticular 3 patient underwent colonoscopy today with reversal colostomy tomorrow.
--- NOTE | 2020-07-20 09:34 | P.OP ---
Date of Procedure: 07/20/20 Preoperative Diagnosis: History of perforated diverticulitis Postoperative Diagnosis: Diverticulosis Procedure(s) Performed: Colonoscopy Anesthesia: MAC Surgeon: Bhupendra Khan Pathology: none sent Condition: stable Disposition: PACU Description of Procedure: The patient's placed on the endoscopy table in the lateral position. He received IV sedation. Digital rectal exam was performed which revealed no rebound. The flexible colonoscope was then placed patient anus and passed throughout the colon. The patient a previous Jenn procedure. The rectal stump measured approximately 25 cm in length. There is no obvious pathology the rectum. This the scope was then withdrawn. Next the patient's colostomy was removed. Patient had some stenosis of his colostomy. The pediatric scope was then placed patient's colostomy passed rotator entire colon. The ileocecal valve sutures. The cecum, ascending and transverse colon appeared normal. The descending colon had a few scattered diverticula. Scope was withdrawn from patient.
[2020-07-20 09:56] VITALS: BP 133/89; PULSE 70
== END | disposition home or self-care (01) ==
LOC: ORWHC2ENDO 08:05
PROVIDERS: ATTEND Surgery
DX: K57.30 Diverticulosis of large intestine without perforation or abscess without bleeding (principal); I10 Essential (primary) hypertension; F17.200 Nicotine dependence, unspecified, uncomplicated; Z93.3 Colostomy status; Z90.49 Acquired absence of other specified parts of digestive tract; Z79.899 Other long term (current) drug therapy; Z98.890 Other specified postprocedural states; Z82.49 Family history of ischemic heart disease and other diseases of the circulatory system
CPT/HCPCS: 44388; J2704

== ENCOUNTER 2020-07-21 07:14 | Inpatient (IN) | payer BC ==
[2020-07-17 12:58] VITALS: BMI 25.8
[~2020-07-21 07:14] MED LIST changes: -ACETAMINOPHEN TAB 500 MG TAB ONE; +ACETAMINOPHEN TAB 500 MG TAB PO ONE; +DEXAMETHASONE SOD PHOSPHATE 10 MG/ML 1 ML VIAL IV ONE; -HEPARIN SODIUM,PORCINE 5,000 UNIT/ML 1 ML VIAL ONE; +HEPARIN SODIUM,PORCINE 5,000 UNIT/ML 1 ML VIAL SQ ONE; -LACTATED RINGERS 1,000 ML IV SCH; +MIDAZOLAM 2 MG/2 ML VIAL IV PRN; +ONDANSETRON 4 MG/2 ML VIAL IVP ONE; -ONDANSETRON 4 MG/2 ML VIAL ONE; -PROPOFOL 10 MG/ML 20 ML VIAL IV ONE; +metroNIDAZOLE-NS PMX 500 MG in SALINE 1 100ML.BAG IVPB ONE
[2020-07-21] MEDS ORDERED: MELOXICAM 7.5 MG TAB PO ONE (07:49)
[2020-07-21] MEDS ORDERED: ALVIMOPAN 12 MG CAPSULE PO ONE (07:49)
[2020-07-21] MEDS: LACTATED RINGERS 1,000 ML IV SCH (07:59)
[2020-07-21] MEDS ORDERED: MIDAZOLAM 2 MG/2 ML VIAL IV ONE (08:12)
[2020-07-21] MEDS ORDERED: DEXAMETHASONE SOD PHOSPHATE 10 MG/ML 1 ML VIAL IV ONE (08:23)
--- NOTE | 2020-07-21 09:17 | P.GSHP ---
History of Present Illness H&P Date: 07/21/20 Chief Complaint: History of perforated diverticulitis This a 54-year-old male who presents today for reversal colostomy. Patient's previous history of perforated diverticulitis Past Medical History Past Medical History: Hypertension Additional Past Medical History / Comment(s): DIVERTICULITIS WITH PERFORATION & COLOSTOMY (03/28/20). History of Any Multi-Drug Resistant Organisms: None Reported Past Surgical History: Bowel Resection, Orthopedic Surgery Additional Past Surgical History / Comment(s): left elbow fracture repair, left knee washout and extensive stitches. Sigmoid colectomy with end colostomy. Past Anesthesia/Blood Transfusion Reactions: No Reported Reaction Past Psychological History: No Psychological Hx Reported Past Alcohol Use History: Occasional Past Drug Use History: None Reported - Past Family History Father Additional Family Medical History / Comment(s): Aortic aneurysm Medications and Allergies Home Medications Medication Instructions Recorded Confirmed Type Multivit-Min/Folic/Vit K/Lycop 1 each PO DAILY 07/17/20 07/21/20 History [Men's Multivitamin Tablet] amLODIPine [Norvasc] 10 mg PO W/SUPPER 07/17/20 07/21/20 History Allergies Allergy/AdvReac Type Severity Reaction Status Date / Time No Known Allergies Allergy Verified 07/21/20 07:36 Surgical - Exam Vital Signs Temp Pulse Resp BP Pulse Ox 98.6 F 111 H 18 166/100 98 07/21/20 07:30 07/21/20 07:30 07/21/20 07:30 07/21/20 07:30 07/21/20 07:30 - General well developed, well nourished, no distress - Eyes PERRL - ENT normal pinna - Neck no masses - Respiratory normal expansion - Cardiovascular Rhythm: regular - Abdomen Clots in the left upper quadrant Abdomen: soft, non tender Results - Labs 07/21/20 07:59 Diabetes panel 07/21/20 Range/Units 07:59 Potassium 4.4 (3.5-5.1) mmol/L Pituitary panel 07/21/20 Range/Units 07:59 Potassium 4.4 (3.5-5.1) mmol/L Adrenal panel 07/21/20 Range/Units 07:59 Potassium 4.4 (3.5-5.1) mmol/L Assessment and Plan Plan: History of perforated diverticulitis. We'll perform reversal of colostomy.
[2020-07-21] MEDS ORDERED: SUCCINYLCHOLINE CHLORIDE 100 MG/5 ML SYR IV ONE (09:26)
[2020-07-21] MEDS ORDERED: NEOSTIGMINE 1 MG/ML 10 ML VIAL ONE (09:26)
[2020-07-21] MEDS ORDERED: HYDROmorphone (PF) 1 MG/ML ONE (09:26)
[2020-07-21] MEDS ORDERED: ROCURONIUM BROMIDE 10 MG/ML 5 ML VIAL IV ONE (09:26)
[2020-07-21] MEDS ORDERED: PROPOFOL 10 MG/ML 20 ML VIAL IV ONE (09:26)
[2020-07-21] MEDS ORDERED: LIDOCAINE 1% INJ 10MG/ML (20 ML MDV) ONE (09:26)
[2020-07-21] MEDS ORDERED: GLYCOPYRROLATE 0.2 MG/ML 2 ML VIAL ONE (09:26)
[2020-07-21] MEDS ORDERED: MIDAZOLAM 2 MG/2 ML VIAL ONE ×2 (09:26)
[2020-07-21] MEDS ORDERED: ROPIVACAINE 250 MG, HYDROMORPHONE (PF) 5 MG in SODIUM CHLORIDE 0.9% 200 ML EPIDURAL PRN (10:04)
[2020-07-21] MEDS ORDERED: NALOXONE 0.4 MG/ML 1 ML VIAL IV PRN (10:04)
[2020-07-21] MEDS ORDERED: LACTATED RINGERS 1,000 ML IV ONE (11:05)
[2020-07-21] MEDS ORDERED: BENZOCAINE/MENTHOL LOZENG 1 EACH LOZENGE MUCOUS MEM PRN (11:43)
[2020-07-21] MEDS ORDERED: METOCLOPRAMIDE 5 MG/ML 2 ML VIAL IVP PRN (11:43)
--- NOTE | 2020-07-21 11:49 | P.OP ---
Date of Procedure: 07/21/20 Preoperative Diagnosis: History of perforated diverticulitis Postoperative Diagnosis: History of perforated diverticulitis Procedure(s) Performed: Reversal colostomy Small bowel resection Anesthesia: STEPHENIE Surgeon: Bhupendra Khan Estimated Blood Loss (ml): 50 Pathology: other (Ileum, colon) Condition: stable Disposition: PACU Description of Procedure: The patient's placed on the operating table in the supine position. He received general anesthesia. He was then placed in dorsal lithotomy position patient's abdomen was prepped and draped in usual sterile fashion. Clay cath had been placed. The patient's abdomen was entered through his previous midline scar. The Bookwalter retractors placed a wound. Adhesions were lysed with sharp dissection. There were significant adhesions in the proximal ileum on the right abdominal wall. A small segment of ileum was excised. The ileum was transected proximally and distally with a GI stapler and then using the Enseal device the mesentery the bowel was divided. A [id number] functional end-to-end staple anastomosis then created using the SHAKIR and TA stapler. The colostomy was then transected at the fascial level using SHAKIR stapler. Adhesions of small bowel were then lysed using sharp dissection. The adhesions to the small bowel the pelvis were lysed and the small bowel was removed from the pelvis. The rectal stump was visualized. At this point the proximal colon was opened and the anvil for the 25 mm EEA stapler was placed into the colon and then the colon was transected with the SHAKIR stapler. The spike for the a.m. was driven through the staple line. The biology research assistant placed the EEA stapler patient's anus and then the stapler was position in the rectum. The spike was driven through the anterior rectal wall. The staple anvil was then connected stable. Scope was then closed and fired and then withdrawn. 2 intact tissue rings were removed from stapler. The anastomosis was checked with air insufflation. Using a hydrocele of the colon was occluded and then using a sigmoidoscope air was insufflated into the colon and then the anastomosis was checked. There is no evidence of extravasation of air. The abdomen was irrigated. There is no bleeding seen. The fascia was then closed with looped #1 PDS suture. Skin was closed vamsi. The colostomy was excised using left cautery. The fascial defect was closed with 0 Vicryl. Skin was closed vamsi. Patient top she will was sent to recovery room in stable condition.
--- NOTE | 2020-07-21 11:57 | P.ANPRN ---
Procedure Note - Anesthesia - Epidural/Spinal Epidural Continuous Time Out Performed: Yes Date of Procedure: 07/21/20 Procedure Start Time: 08:11 Procedure Stop Time: 08:18 Location of Patient: PreOp Indication: Acute Post-Operative Pain, Requested by Surgeon Sedation Type: Sedate with meaningful contact maintained Preparation: Sterile Dressing Position: Sitting Catheter: Indwelling Needle Guage: 18 Injectate: Test Dose Lidocaine1.5% w/1:200,000 epi Blood Aspirated: No Pain Paresthesia on Injection Noted: No Events: Uneventful and Well Tolerated (test dose 3cc)
[2020-07-21] MEDS: HYDROmorphone 0.5 MG/0.5 ML SYRINGE IVP PRN ×2 (12:09→12:14)
[2020-07-21] MEDS ORDERED: fentaNYL (PF) 50 MCG/ML 2 ML AMP IVP ONE (12:15)
[2020-07-21] MEDS ORDERED: SODIUM CHLORIDE 0.9% 1,000 ML IV ONE (12:57)
[2020-07-21] MEDS: D5-0.45% NACL WITH KCL 20MEQ/L 1,000 ML IV SCH ×2 (14:17→21:22)
[2020-07-21] MEDS: ONDANSETRON 4 MG/2 ML VIAL IVP PRN ×2 (14:17→22:26)
[2020-07-21] MEDS: HEPARIN SODIUM,PORCINE 5,000 UNIT/ML 1 ML VIAL SQ SCH (17:15)
--- NOTE | 2020-07-21 17:59 | P.CONS ---
History of Present Illness - Reason for Consult Consult date: 07/21/20 Requesting physician: Bhupendra Khan - Chief Complaint Medical management - History of Present Illness 54 year old M with PMH of hypertension and diverticulitis post colostomy presents to [facility] for elective surgery. He underwent colostomy reversal. [facility] physicians has been consulted for medical management of the patient. Patient was seen and examined after his surgery. He complains of some nausea. Abdominal pain well controlled. He denies any chest pain shortness of breath or palpitations. No fever or chills. Review of Systems All systems: negative Past Medical History Past Medical History: Hypertension Additional Past Medical History / Comment(s): DIVERTICULITIS WITH PERFORATION & COLOSTOMY (03/28/20). History of Any Multi-Drug Resistant Organisms: None Reported Past Surgical History: Bowel Resection, Orthopedic Surgery Additional Past Surgical History / Comment(s): left elbow fracture repair, left knee washout and extensive stitches. Sigmoid colectomy with end colostomy. Past Anesthesia/Blood Transfusion Reactions: No Reported Reaction Past Psychological History: No Psychological Hx Reported Past Alcohol Use History: Occasional Past Drug Use History: None Reported - Past Family History Father Additional Family Medical History / Comment(s): Aortic aneurysm Medications and Allergies Home Medications Medication Instructions Recorded Confirmed Type Multivit-Min/Folic/Vit K/Lycop 1 each PO DAILY 07/17/20 07/21/20 History [Men's Multivitamin Tablet] amLODIPine [Norvasc] 10 mg PO W/SUPPER 07/17/20 07/21/20 History Allergies Allergy/AdvReac Type Severity Reaction Status Date / Time No Known Allergies Allergy Verified 07/21/20 07:36 Physical Exam Vitals: Vital Signs Temp Pulse Pulse Resp BP BP Pulse Ox 07/21/20 17:23 111 H 16 127/80 95 07/21/20 16:48 96 07/21/20 16:09 97.9 F 102 H 14 136/87 96 07/21/20 14:42 98 120/78 07/21/20 14:27 104 H 127/78 07/21/20 14:13 97.4 F L 105 H 16 127/78 93 L 07/21/20 13:15 105 H 16 145/83 95 07/21/20 13:00 95 16 155/94 95 07/21/20 12:45 91 16 160/96 97 07/21/20 12:30 102 H 14 160/99 95 07/21/20 12:15 99 16 160/94 93 L 07/21/20 12:00 105 H 16 165/99 99 07/21/20 11:46 98.1 F 129 H 16 168/94 97 07/21/20 08:40 109 H 18 126/81 99 07/21/20 08:20 109 H 18 132/81 98 07/21/20 07:30 98.6 F 111 H 18 166/100 98 Intake and Output 07/21/20 07/21/20 07/21/20 06:59 14:59 22:59 Intake Total 2149 Output Total 100 Balance 2049 Intake: IV 2149 Output: Urine 50 Estimated Blood Loss 50 Other: Voiding Method Indwelling Catheter Weight 74 kg General: [non toxic], [no distress], [appears at stated age] Derm: [warm], [dry] Head: [atraumatic], [normocephalic], [symmetric] Eyes: [EOMI], [no lid lag], [anicteric sclera] Mouth: [no lip lesion], [mucus membranes moist] Cardiovascular: [S1S2 reg], [tachy, [positive DP pulse bilateral], Lungs: [CTA bilateral], [no rhonchi, no rales] , [no accessory muscle use] Abdominal: [soft], [ nontender to palpation], [no guarding], [no appreciable organomegaly], midline scar dressing clean dry and intact Ext: [no gross muscle atrophy], [no edema], [no contractures] Neuro: [ CN II-XI grossly intact], [no focal neuro deficits] Psych: [Alert], [oriented], [appropriate affect] Results CBC & Chem 7: 07/21/20 07:59 Assessment and Plan Assessment: HTN Tachycardia His BP is well controlled. Plans: Start Amlodipine. Monitor vitals, adjust medications if necessary. Likely related to surgery, pain and nausea. Plans: Needs better pain control. Continue to monitor. Patient names his daughter Laura decision maker if he cant make decisions. PCP with Timothy. He will be FULL CODE. Thank you for this consult. Please call with any additional questions or concerns.
[2020-07-21] MEDS: FAMOTIDINE 20 MG/2 ML VIAL IV SCH (21:08)
[2020-07-22] MEDS: HEPARIN SODIUM,PORCINE 5,000 UNIT/ML 1 ML VIAL SQ SCH ×4 (00:01→23:47)
[2020-07-22] MEDS: LACTATED RINGERS 1,000 ML IV SCH (01:03)
[2020-07-22] MEDS: D5-0.45% NACL WITH KCL 20MEQ/L 1,000 ML IV SCH ×4 (03:14→23:52)
[2020-07-22 06:10] LABS: Basophils % (A) 0 %; Eosinophils # (A) 0.2 k/uL (0-0.7); Eosinophils % (A) 1 %; HGB 13.9 gm/dL (13.0-17.5); Lymphocytes # (A) 0.6 k/uL (1.0-4.8); Lymphocytes % (A) 3 %; MCH 31.1 pg (25.0-35.0); MCHC 33.2 g/dL (31.0-37.0); MCV 93.6 fL (80.0-100.0); Mean Platelet Volume 8.2; Monocytes # (A) 0.7 k/uL (0-1.0); Monocytes % (A) 4 %; Neutrophils # (A) 16.7 k/uL (1.3-7.7); Neutrophils % (A) 92 %; Platelet Count 240 k/uL (150-450); RBC 4.49 m/uL (4.30-5.90); RDW 13.1 % (11.5-15.5); WBC 18.2 k/uL (3.8-10.6)
[2020-07-22 06:22] LABS: African American GFR (CKD) >90 (>60 ml/min/1.73 sqM); Anion Gap 7 mmol/L; Blood Urea Nitrogen 10 mg/dL (9-20); Calcium 8.9 mg/dL (8.4-10.2); Carbon Dioxide 25 mmol/L (22-30); Chloride 105 mmol/L (98-107); Glucose 134 mg/dL (74-99); Non-African American GFR(CKD) >90 (>60 ml/min/1.73 sqM); Potassium 4.8 mmol/L (3.5-5.1); Sodium 137 mmol/L (137-145)
--- NOTE | 2020-07-22 06:42 | P.PN ---
Progress Note - Text Progress Note Date: 07/22/20 Patient without complaints. Drinking water. Denies headache or weakness. Pain 0/10. Epidural at 8 ml/hr. Epidural site clean and dry. POD#1 s/p LAR. Assessment and plan: Epidural was initially at 12 mL per hour however patient felt very groggy and requested to be decreased to 8 which it is currently at.. Overall patient wants the epidural out as he is anxious to get moving out of the hospital. I educated him regarding the beneficial effects of the epidural including increased gastric motility and overall decreased pain without the use of opioid medications. Patient understands and will talk to his primary team regarding epidural.
[2020-07-22] MEDS: FAMOTIDINE 20 MG/2 ML VIAL IV SCH ×2 (08:02→20:18)
[2020-07-22] MEDS: ALVIMOPAN 12 MG CAPSULE PO SCH ×2 (08:03→20:18)
[2020-07-22] MEDS: ONDANSETRON 4 MG/2 ML VIAL IVP PRN (08:10)
--- NOTE | 2020-07-22 12:16 | P.PN ---
Subjective Progress Note Date: 07/22/20 Principal diagnosis: Colostomy reversal Patient doing fairly well. Complains of nausea when he lifts his head up however. Mild tachycardia. White blood cell count 18.2. Patient is tolerating clears. No bowel function. Objective - Vital Signs Vital signs: Vital Signs Temp 98.3 F 07/22/20 11:40 Pulse 102 H 07/22/20 11:40 Resp 17 07/22/20 11:40 BP 149/88 07/22/20 11:40 Pulse Ox 99 07/22/20 11:40 Intake & Output 07/21/20 07/22/20 07/22/20 18:59 06:59 18:59 Intake Total 2150 2370.450 79.2 Output Total 300 850 Balance 1850 1520.450 79.2 Weight 74 kg Intake: IV 2150 Intake, IV Titration 1630.450 79.2 Amount D5-0.45% NaCl with KCl 1500 20Meq/l 1,000 ml @ 125 mls/hr IV .Q8H [facility] Rx#: [id number] Ropivacaine 250 mg 30.450 79.2 Hydromorphone (Pf) 5 mg In Sodium Chloride 0.9% 200 ml @ Per Protocol EPIDURAL .Q0M PRN Rx#: [id number] ceFAZolin 1,000 mg In 100 Sodium Chloride 0.9% 50 ml @ 100 mls/hr IVPB Q8HR [facility] Rx#:[id number] Oral 740 Output: Urine 250 850 Estimated Blood Loss 50 Other: Voiding Method Indwelling Catheter Indwelling Catheter Indwelling Catheter - Exam Abdomen: Soft, nondistended, incision clean and dry, mild tenderness - Labs CBC & Chem 7: 07/22/20 05:40 07/22/20 05:40 Labs: Abnormal Lab Results - Last 24 Hours (Table) 07/22/20 07/22/20 Range/Units 05:40 05:40 WBC 18.2 H (3.8-10.6) k/uL Neutrophils # 16.7 H (1.3-7.7) k/uL Lymphocytes # 0.6 L (1.0-4.8) k/uL Glucose 134 H (74-99) mg/dL Assessment and Plan (1) Diverticulitis Narrative/Plan: Patient doing fairly well. Will try to decrease the epidural rate to see if this helps his nausea. Gradually increase activity. Continue clear liquids. Repeat labs tomorrow. Current Visit: No Status: Acute Code(s): K57.92 - DVTRCLI OF INTEST, PART UNSP, W/O PERF OR ABSCESS W/O BLEED SNOMED Code(s): 165129355
[2020-07-22] MEDS ORDERED: DIAZEPAM 5 MG/ML 2 ML INJ IVP STA (13:16)
--- NOTE | 2020-07-22 13:23 | P.PN ---
Subjective Progress Note Date: 07/22/20 Patient was seen and examined. Patient reports nausea and states that this pain is very minimal. Would like epidural taken out. Complains of anxiety. He denies any chest pain, shortness of breath or palpitations. No fever or chills Objective - Vital Signs Vital signs: Vital Signs Temp 98.3 F 07/22/20 11:40 Pulse 102 H 07/22/20 11:40 Resp 17 07/22/20 11:40 BP 149/88 07/22/20 11:40 Pulse Ox 99 07/22/20 11:40 Intake & Output 07/21/20 07/22/20 07/22/20 18:59 06:59 18:59 Intake Total 2150 2370.450 79.2 Output Total 300 850 Balance 1850 1520.450 79.2 Weight 74 kg Intake: IV 2150 Intake, IV Titration 1630.450 79.2 Amount D5-0.45% NaCl with KCl 1500 20Meq/l 1,000 ml @ 125 mls/hr IV .Q8H [facility] Rx#: [id number] Ropivacaine 250 mg 30.450 79.2 Hydromorphone (Pf) 5 mg In Sodium Chloride 0.9% 200 ml @ Per Protocol EPIDURAL .Q0M PRN Rx#: [id number] ceFAZolin 1,000 mg In 100 Sodium Chloride 0.9% 50 ml @ 100 mls/hr IVPB Q8HR [facility] Rx#:[id number] Oral 740 Output: Urine 250 850 Estimated Blood Loss 50 Other: Voiding Method Indwelling Catheter Indwelling Catheter Indwelling Catheter - Exam General: [non toxic], [no distress], [appears at stated age] Derm: [warm], [dry] Head: [atraumatic], [normocephalic], [symmetric] Eyes: [EOMI], [no lid lag], [anicteric sclera] Mouth: [no lip lesion], [mucus membranes moist] Cardiovascular: [S1S2 reg], [tachy], [positive DP pulse bilateral], Lungs: [CTA bilateral], [no rhonchi, no rales] , [no accessory muscle use] Abdominal: [soft], [ nontender to palpation], [no guarding], [no appreciable organomegaly], midline scar dressing clean dry and intact Ext: [no gross muscle atrophy], [no edema], [no contractures] Neuro: [no focal neuro deficits] Psych: [Alert], [oriented], [appropriate affect] - Labs CBC & Chem 7: 07/22/20 05:40 07/22/20 05:40 Labs: Abnormal Lab Results - Last 24 Hours (Table) 07/22/20 07/22/20 Range/Units 05:40 05:40 WBC 18.2 H (3.8-10.6) k/uL Neutrophils # 16.7 H (1.3-7.7) k/uL Lymphocytes # 0.6 L (1.0-4.8) k/uL Glucose 134 H (74-99) mg/dL Assessment and Plan Assessment: HTN Anxiety Leukocytosis Tachycardia His BP is well controlled. Plans: Start Amlodipine. Monitor vitals, adjust medications if necessary. Plans: Valium 5 mg IV 1. WBC count 18.2. Likely reactive from surgery. Plans: Repeat CBC tomorrow morning. Monitor for fevers. No obvious signs of infection. Likely related to surgery, pain and nausea. Plans: Needs better pain control. Continue to monitor. Patient names his daughter Laura decision maker if he cant make decisions. PCP with Timothy. He will be FULL CODE. Thank you for this consult. Please call with any additional questions or concerns.
[2020-07-22] MEDS ORDERED: HYDROmorphone 1 MG/ML 1 ML SYRINGE IVP PRN (16:55)
[2020-07-22] MEDS ORDERED: HYDROcodone/APAP 5-325MG 1 EACH TAB PO PRN (16:55)
[2020-07-22] MEDS: amLODIPine 10 MG TAB PO SCH (17:52)
[2020-07-22] MEDS: KETOROLAC 15 MG/ML 1 ML VIAL IVP SCH ×2 (17:52→23:49)
[2020-07-23] MEDS: LACTATED RINGERS 1,000 ML IV SCH (00:18)
[2020-07-23] MEDS: KETOROLAC 15 MG/ML 1 ML VIAL IVP SCH ×4 (05:25→23:13)
[2020-07-23 06:52] LABS: Basophils % (A) 0 %; Eosinophils # (A) 0.1 k/uL (0-0.7); Eosinophils % (A) 1 %; HCT 40.2 % (39.0-53.0); HGB 13.2 gm/dL (13.0-17.5); Lymphocytes % (A) 10 %; MCH 30.3 pg (25.0-35.0); MCHC 32.8 g/dL (31.0-37.0); MCV 92.3 fL (80.0-100.0); Mean Platelet Volume 8.4; Monocytes # (A) 0.4 k/uL (0-1.0); Monocytes % (A) 4 %; Neutrophils # (A) 8.2 k/uL (1.3-7.7); Neutrophils % (A) 84 %; Platelet Count 207 k/uL (150-450); RBC 4.36 m/uL (4.30-5.90); RDW 12.8 % (11.5-15.5); WBC 9.7 k/uL (3.8-10.6)
[2020-07-23] MEDS: FAMOTIDINE 20 MG/2 ML VIAL IV SCH ×2 (08:25→19:33)
[2020-07-23] MEDS: HEPARIN SODIUM,PORCINE 5,000 UNIT/ML 1 ML VIAL SQ SCH ×3 (08:25→23:13)
[2020-07-23] MEDS: ALVIMOPAN 12 MG CAPSULE PO SCH (08:25)
[2020-07-23] MEDS: D5-0.45% NACL WITH KCL 20MEQ/L 1,000 ML IV SCH ×2 (08:26→16:38)
[2020-07-23 09:40] LABS: African American GFR (CKD) 117.4 (60.0-200.0); BUN/Creat Ratio 8.75 Ratio (12.00-20.00); Non-African American GFR(CKD) 101.3 (60.0-200.0); Potassium 4.2 mmol/L (3.5-5.5)
--- NOTE | 2020-07-23 11:54 | P.PN ---
Subjective Progress Note Date: 07/23/20 Principal diagnosis: Colostomy reversal Patient doing well today. Epidural was removed. No further nausea. Tolerating clears. Asking for more food. Would like Clay catheter removed. He is afebrile. White blood cell count 9.7. Objective - Vital Signs Vital signs: Vital Signs Temp 98 F 07/23/20 05:00 Pulse 80 07/23/20 05:00 Resp 16 07/23/20 05:00 BP 116/68 07/23/20 05:00 Pulse Ox 98 07/23/20 05:00 Intake & Output 07/22/20 07/23/20 07/23/20 18:59 06:59 18:59 Intake Total 79.2 1950 Output Total 3600 1500 Balance -3520.8 450 Intake: Intake, IV Titration 79.2 1500 Amount D5-0.45% NaCl with KCl 1500 20Meq/l 1,000 ml @ 125 mls/hr IV .Q8H [facility] Rx#: [id number] Ropivacaine 250 mg 79.2 Hydromorphone (Pf) 5 mg In Sodium Chloride 0.9% 200 ml @ Per Protocol EPIDURAL .Q0M PRN Rx#: [id number] Oral 450 Output: Urine 3600 1500 Uretheral (Clay) 1000 Other: Voiding Method Indwelling Catheter Indwelling Catheter Indwelling Catheter # Voids 650 # Bowel Movements 0 - Exam Abdomen: Soft, nondistended, incision clean and dry, mild tenderness - Labs CBC & Chem 7: 07/23/20 06:17 07/23/20 06:17 Labs: Abnormal Lab Results - Last 24 Hours (Table) 07/23/20 07/23/20 Range/Units 06:17 06:17 Neutrophils # 8.2 H (1.3-7.7) k/uL BUN 7.0 L (9.0-27.0) mg/dL BUN/Creatinine Ratio 8.75 L (12.00-20.00) Ratio Assessment and Plan (1) Diverticulitis Narrative/Plan: Will increase diet to full liquids. Ambulate. Remove Clay catheter. Current Visit: No Status: Acute Code(s): K57.92 - DVTRCLI OF INTEST, PART UNSP, W/O PERF OR ABSCESS W/O BLEED SNOMED Code(s): 828199685
[2020-07-23] MEDS ORDERED: LORazepam 1 MG TAB PO PRN (14:32)
--- NOTE | 2020-07-23 14:34 | P.PN ---
Subjective Progress Note Date: 07/23/20 Patient was seen and examined. Epidural discontinued yesterday. Patient reports considerable improvement in his symptoms since discontinuing the epidural. No more nausea or vomiting. Minimal abdominal discomfort. He denies any chest pain, shortness of breath or palpitations. No fever or chills Objective - Vital Signs Vital signs: Vital Signs Temp 98.8 F 07/23/20 11:54 Pulse 87 07/23/20 11:54 Resp 17 07/23/20 11:54 BP 127/82 07/23/20 11:54 Pulse Ox 98 07/23/20 11:54 Intake & Output 07/22/20 07/23/20 07/23/20 18:59 06:59 18:59 Intake Total 79.2 1950 Output Total 3600 1500 Balance -3520.8 450 Intake: Intake, IV Titration 79.2 1500 Amount D5-0.45% NaCl with KCl 1500 20Meq/l 1,000 ml @ 125 mls/hr IV .Q8H [facility] Rx#: [id number] Ropivacaine 250 mg 79.2 Hydromorphone (Pf) 5 mg In Sodium Chloride 0.9% 200 ml @ Per Protocol EPIDURAL .Q0M PRN Rx#: [id number] Oral 450 Output: Urine 3600 1500 Uretheral (Clay) 1000 Other: Voiding Method Indwelling Catheter Indwelling Catheter Indwelling Catheter # Voids 650 # Bowel Movements 0 - Exam General: [non toxic], [no distress], [appears at stated age] Derm: [warm], [dry] Head: [atraumatic], [normocephalic], [symmetric] Eyes: [EOMI], [no lid lag], [anicteric sclera] Mouth: [no lip lesion], [mucus membranes moist] Cardiovascular: [S1S2 reg], [tachy], [positive DP pulse bilateral], Lungs: [CTA bilateral], [no rhonchi, no rales] , [no accessory muscle use] Abdominal: [soft], [ nontender to palpation], [no guarding], [no appreciable organomegaly], midline scar dressing clean dry and intact Ext: [no gross muscle atrophy], [no edema], [no contractures] Neuro: [no focal neuro deficits] Psych: [Alert], [oriented], [appropriate affect] - Labs CBC & Chem 7: 07/23/20 06:17 07/23/20 06:17 Labs: Abnormal Lab Results - Last 24 Hours (Table) 07/23/20 07/23/20 Range/Units 06:17 06:17 Neutrophils # 8.2 H (1.3-7.7) k/uL BUN 7.0 L (9.0-27.0) mg/dL BUN/Creatinine Ratio 8.75 L (12.00-20.00) Ratio Assessment and Plan Assessment: HTN Anxiety History of perforated diverticulitis post reversal of colostomy POD 2 Resolved: Tachycardia, Leukocytosis His BP is well controlled. Plans: Start Amlodipine. Monitor vitals, adjust medications if necessary. Plans: Ativan by mouth as needed. Plans: Management as per Surgery. Patient names his daughter Laura decision maker if he cant make decisions. PCP with Timothy. He will be FULL CODE. Thank you for this consult. Please call with any additional questions or concerns.
[2020-07-23] MEDS: amLODIPine 10 MG TAB PO SCH (17:29)
[2020-07-24] MEDS: KETOROLAC 15 MG/ML 1 ML VIAL IVP SCH ×4 (05:21→23:55)
[2020-07-24 06:03] LABS: Basophils % (A) 0 %; Eosinophils # (A) 0.1 k/uL (0-0.7); Eosinophils % (A) 2 %; HCT 43.4 % (39.0-53.0); HGB 14.4 gm/dL (13.0-17.5); Lymphocytes # (A) 1.1 k/uL (1.0-4.8); Lymphocytes % (A) 13 %; MCH 30.5 pg (25.0-35.0); MCHC 33.2 g/dL (31.0-37.0); Mean Platelet Volume 7.3; Monocytes # (A) 0.4 k/uL (0-1.0); Monocytes % (A) 5 %; Neutrophils # (A) 6.6 k/uL (1.3-7.7); Neutrophils % (A) 79 %; Platelet Count 280 k/uL (150-450); RBC 4.72 m/uL (4.30-5.90); RDW 12.9 % (11.5-15.5); WBC 8.4 k/uL (3.8-10.6)
[2020-07-24] MEDS: LACTATED RINGERS 1,000 ML IV SCH ×2 (07:31→23:50)
[2020-07-24] MEDS: HEPARIN SODIUM,PORCINE 5,000 UNIT/ML 1 ML VIAL SQ SCH ×3 (08:26→23:55)
[2020-07-24] MEDS: FAMOTIDINE 20 MG/2 ML VIAL IV SCH ×2 (08:26→20:33)
--- NOTE | 2020-07-24 08:54 | P.PN ---
Subjective Progress Note Date: 07/24/20 CHIEF COMPLAINT: Diverticulitis HISTORY OF PRESENT ILLNESS: Patient is status post colostomy reversal and small bowel resection. He reports having bowel movements and passing gas. He is tolerating a full liquid diet. He is afebrile. WBC is 8.4 PHYSICAL EXAM: VITAL SIGNS: Reviewed. GENERAL: Well-developed in no acute distress. HEENT: No sclera icterus. Extraocular movements grossly intact. Moist buccal mucosa. Head is atraumatic, normocephalic. ABDOMEN: Soft. Nondistended. Incision site minimal dry blood noted in the middle of the incision below the umbilicus. Otherwise clean dry and intact NEUROLOGIC: Alert and oriented. Cranial nerves II through XII grossly intact. ASSESSMENT: 1. History of perforated diverticulitis status post reversal of colostomy and small bowel resection. PLAN: -Continue full liquid diet -Continue incentive spirometer use -Encourage patient to ambulate -Continue pain medications as needed -DVT prophylaxis subcu heparin and GI prophylaxis Pepcid Physician Combined Rail Operator note has been reviewed by physician. Signing provider agrees with the documented findings, assessment, and plan of care. Objective - Vital Signs Vital signs: Vital Signs Temp 98.5 F 07/24/20 05:00 Pulse 84 07/24/20 05:00 Resp 18 07/24/20 05:00 BP 132/84 07/24/20 05:00 Pulse Ox 96 07/24/20 05:00 Intake & Output 07/23/20 07/24/20 07/24/20 18:59 06:59 18:59 Output Total 600 Balance -600 Output: Urine 600 Uretheral (Clay) 600 Other: Voiding Method Indwelling Catheter Indwelling Catheter Toilet # Voids 2 2 # Bowel Movements 1 - Labs CBC & Chem 7: 07/24/20 05:39 07/23/20 06:17 Labs: Abnormal Lab Results - Last 24 Hours (Table) 07/23/20 Range/Units 06:17 BUN 7.0 L (9.0-27.0) mg/dL BUN/Creatinine Ratio 8.75 L (12.00-20.00) Ratio
[2020-07-24 09:16] LABS: Anion Gap 7.1 mmol/L (4.00-12.00); BUN/Creat Ratio 8.57 Ratio (12.00-20.00); Carbon Dioxide 24.9 mmol/L (21.6-31.8); Potassium 4.1 mmol/L (3.5-5.5)
[2020-07-24] MEDS: D5-0.45% NACL WITH KCL 20MEQ/L 1,000 ML IV SCH ×3 (09:29→19:26)
--- NOTE | 2020-07-24 15:48 | P.PN ---
Subjective Progress Note Date: 07/24/20 (delayed charting seen at 1140) Principal diagnosis: diverticulosis Patient is a 54-year-old male with a history of hypertension, prior diverticulitis with perforation and colostomy formation, and occasional alcohol use who presented for elective colostomy reversal. This was completed on 07/21 without any immediate postoperative complications. Patient seen and examined at bedside. He is feeling well, he is passing lots of flatus today, tolerating his liquid diet, no nausea, no vomiting, no chest pain, no shortness of breath General: Nontoxic, no distress, appears at stated age Derm: warm, dry Head: atraumatic, normocephalic, symmetric Eyes: EOMI, no lid lag, anicteric sclera Mouth: no lip lesion, mucus membranes moist Cardiovascular: S1S2 reg, no murmur, positive posterior tibial pulse bilateral, Lungs: Decreased breath sounds bilateral, no rhonchi, no rales , no accessory muscle use Abdominal: soft, tender to palpation diffusely, dressing over midline abdomen, no guarding, no appreciable organomegaly Ext: no gross muscle atrophy, no edema, no contractures Neuro: CN II-XI grossly intact, no focal neuro deficits Psych: Alert, oriented, appropriate affect Diverticulosis with colostomy reversal -Pain management per primary team -Full liquid diet -Passing flatus Hypertension -Controlled, continue with Norvasc Tachycardia, resolved Leukocytosis, resolved Anxiety Thank you for allowing us to participate in the care of this patient. Objective - Vital Signs Vital signs: Vital Signs Temp 97.5 F L 07/24/20 11:49 Pulse 96 07/24/20 11:49 Resp 18 07/24/20 11:49 BP 149/97 07/24/20 11:49 Pulse Ox 95 07/24/20 11:49 Intake & Output 07/23/20 07/24/20 07/24/20 18:59 06:59 18:59 Intake Total 1050 Output Total 600 Balance -600 1050 Intake: Intake, IV Titration 1050 Amount D5-0.45% NaCl with KCl 1000 20Meq/l 1,000 ml @ 125 mls/hr IV .Q8H [facility] Rx#: [id number] ceFAZolin 1,000 mg In 50 Sodium Chloride 0.9% 50 ml @ 100 mls/hr IVPB Q8HR [facility] Rx#:[id number] Output: Urine 600 Uretheral (Clay) 600 Other: Voiding Method Indwelling Catheter Indwelling Catheter Toilet # Voids 2 2 # Bowel Movements 1 - Labs CBC & Chem 7: 07/24/20 05:39 07/24/20 05:39 Labs: Abnormal Lab Results - Last 24 Hours (Table) 07/24/20 Range/Units 05:39 BUN 6.0 L (9.0-27.0) mg/dL BUN/Creatinine Ratio 8.57 L (12.00-20.00) Ratio Glucose 113 H (70-110) mg/dL
[2020-07-24] MEDS: amLODIPine 10 MG TAB PO SCH (17:27)
[2020-07-25] MEDS: D5-0.45% NACL WITH KCL 20MEQ/L 1,000 ML IV SCH (05:25)
[2020-07-25] MEDS: KETOROLAC 15 MG/ML 1 ML VIAL IVP SCH ×3 (05:27→17:15)
[2020-07-25] MEDS: HEPARIN SODIUM,PORCINE 5,000 UNIT/ML 1 ML VIAL SQ SCH ×2 (07:35→16:07)
[2020-07-25] MEDS: FAMOTIDINE 20 MG/2 ML VIAL IV SCH ×2 (07:35→21:28)
--- NOTE | 2020-07-25 11:57 | P.PN ---
Subjective Progress Note Date: 07/25/20 CHIEF COMPLAINT: Diverticulitis HISTORY OF PRESENT ILLNESS: Patient is status post colostomy reversal and small bowel resection. He reports having bowel movements and passing gas. He is tolerating diet. He is afebrile. He is up and ambulating PHYSICAL EXAM: VITAL SIGNS: Reviewed. GENERAL: Well-developed in no acute distress. HEENT: No sclera icterus. Extraocular movements grossly intact. Moist buccal mucosa. Head is atraumatic, normocephalic. ABDOMEN: Soft. Nondistended. Incision site clean dry and intact NEUROLOGIC: Alert and oriented. Cranial nerves II through XII grossly intact. ASSESSMENT: 1. History of perforated diverticulitis status post reversal of colostomy and small bowel resection. PLAN: -Advance diet to regular, low fiber -Continue incentive spirometer use -Encourage patient to ambulate -Continue pain medications as needed -DVT prophylaxis subcu heparin and GI prophylaxis Pepcid -Anticipate discharge home tomorrow Physician Net Mobile Developer note has been reviewed by physician. Signing provider agrees with the documented findings, assessment, and plan of care. Objective - Vital Signs Vital signs: Vital Signs Temp 98.7 F 07/25/20 04:24 Pulse 80 07/25/20 08:00 Resp 18 07/25/20 08:00 BP 122/74 07/25/20 04:24 Pulse Ox 97 07/25/20 04:24 Intake & Output 07/24/20 07/25/20 07/25/20 18:59 06:59 18:59 Intake Total 1050 1280 Output Total 400 Balance 1050 880 Intake: Intake, IV Titration 1050 600 Amount D5-0.45% NaCl with KCl 1000 600 20Meq/l 1,000 ml @ 75 mls /hr IV .[id number] [facility] Rx#: [id number] ceFAZolin 1,000 mg In 50 Sodium Chloride 0.9% 50 ml @ 100 mls/hr IVPB Q8HR [facility] Rx#:[id number] Oral 680 Output: Urine 400 Other: Voiding Method Toilet Toilet Toilet # Voids 1 - Labs CBC & Chem 7: 07/24/20 05:39 07/24/20 05:39
[2020-07-25] MEDS: amLODIPine 10 MG TAB PO SCH (17:16)
--- NOTE | 2020-07-25 18:37 | P.PN ---
Subjective Progress Note Date: 07/25/20 Principal diagnosis: diverticulosis Patient is a 54-year-old male with a history of hypertension, prior diverticulitis with perforation and colostomy formation, and occasional alcohol use who presented for elective colostomy reversal. This was completed on 07/21 without any immediate postoperative complications. Patient seen and examined at bedside. He is doing well. Pain is controlled. Had 2 bowel movements this morning without blood or mucus. No nausea or vomi ting. Tolerating diet. General: Nontoxic, no distress, appears at stated age Derm: warm, dry Head: atraumatic, normocephalic, symmetric Eyes: EOMI, no lid lag, anicteric sclera Mouth: no lip lesion, mucus membranes moist Cardiovascular: S1S2 reg, no murmur, positive posterior tibial pulse bilateral, Lungs: Decreased breath sounds bilateral, no rhonchi, no rales , no accessory muscle use Abdominal: soft, tender to palpation diffusely, dressing over midline abdomen, no guarding, no appreciable organomegaly Ext: no gross muscle atrophy, no edema, no contractures Neuro: CN II-XI grossly intact, no focal neuro deficits Psych: Alert, oriented, appropriate affect Diverticulosis with colostomy reversal -Pain management per primary team -regular diet - passing stool - d/w patient dietary recs for diverticulosis, follow-up needs, and signs/symptoms of diverticulitis flare. Hypertension -Controlled, continue with Norvasc Tachycardia, resolved Leukocytosis, resolved Anxiety Thank you for allowing us to participate in the care of this patient. Objective - Vital Signs Vital signs: Vital Signs Temp 98.7 F 07/25/20 04:24 Pulse 78 07/25/20 04:24 Resp 18 07/25/20 04:24 BP 122/74 07/25/20 04:24 Pulse Ox 97 07/25/20 04:24 Intake & Output 07/24/20 07/25/20 07/25/20 18:59 06:59 18:59 Intake Total 1050 1280 Output Total 400 Balance 1050 880 Intake: Intake, IV Titration 1050 600 Amount D5-0.45% NaCl with KCl 1000 600 20Meq/l 1,000 ml @ 75 mls /hr IV .[id number] [facility] Rx#: [id number] ceFAZolin 1,000 mg In 50 Sodium Chloride 0.9% 50 ml @ 100 mls/hr IVPB Q8HR [facility] Rx#:[id number] Oral 680 Output: Urine 400 Other: Voiding Method Toilet Toilet # Voids 1 - Labs CBC & Chem 7: 07/24/20 05:39 07/24/20 05:39
[2020-07-26] MEDS: KETOROLAC 15 MG/ML 1 ML VIAL IVP SCH ×3 (00:14→12:39)
[2020-07-26] MEDS: HEPARIN SODIUM,PORCINE 5,000 UNIT/ML 1 ML VIAL SQ SCH ×2 (00:14→08:50)
[2020-07-26] MEDS: LACTATED RINGERS 1,000 ML IV SCH (01:44)
[2020-07-26 04:36] VITALS: BP 127/81; RESP 16; TEMP 97.9
[2020-07-26] MEDS: FAMOTIDINE 20 MG/2 ML VIAL IV SCH (08:50)
--- NOTE | 2020-07-26 11:13 | P.PN ---
Subjective Progress Note Date: 07/26/20 Principal diagnosis: diverticulosis Patient is a 54-year-old male with a history of hypertension, prior diverticulitis with perforation and colostomy formation, and occasional alcohol use who presented for elective colostomy reversal. This was completed on 07/21 without any immediate postoperative complications. Patient seen and examined at bedside. Reji of his regular diet. 8 this without complications. He'll having bowel movements which are mostly liquid but not painful without blood. General: Nontoxic, no distress, appears at stated age Derm: warm, dry Head: atraumatic, normocephalic, symmetric Eyes: EOMI, no lid lag, anicteric sclera Mouth: no lip lesion, mucus membranes moist Cardiovascular: S1S2 reg, no murmur, positive posterior tibial pulse bilateral, Lungs: Decreased breath sounds bilateral, no rhonchi, no rales , no accessory muscle use Abdominal: soft, non-tender to palpation, dressing over midline abdomen, no guarding, no appreciable organomegaly Ext: no gross muscle atrophy, no edema, no contractures Neuro: CN II-XI grossly intact, no focal neuro deficits Psych: Alert, oriented, appropriate affect Diverticulosis with colostomy reversal -Pain management per primary team -regular diet - passing stool - d/w patient dietary recs for diverticulosis, follow-up needs, and signs/symptoms of diverticulitis flare. Hypertension -Controlled, continue with Norvasc, does not need refills Tachycardia, resolved Leukocytosis, resolved Anxiety Medically optimized for discharge, med rec reviewed, follow-up with Genie Aguirre nurse practitioner next week Thank you for allowing us to participate in the care of this patient. Objective - Vital Signs Vital signs: Vital Signs Temp 97.9 F 07/26/20 04:35 Pulse 82 07/26/20 04:35 Resp 16 07/26/20 04:35 BP 127/81 07/26/20 04:35 Pulse Ox 98 07/26/20 04:35 Intake & Output 07/25/20 07/26/20 07/26/20 18:59 06:59 18:59 Intake Total 1750 360 Output Total 400 400 Balance 1350 360 -400 Intake: Intake, IV Titration 650 Amount D5-0.45% NaCl with KCl 600 20Meq/l 1,000 ml @ 75 mls /hr IV .[id number] [facility] Rx#: [id number] ceFAZolin 1,000 mg In 50 Sodium Chloride 0.9% 50 ml @ 100 mls/hr IVPB Q8HR [facility] Rx#:[id number] Oral 1100 360 Output: Urine 400 400 Other: Voiding Method Toilet Toilet # Voids 5 1 1 - Labs CBC & Chem 7: 07/24/20 05:39 07/24/20 05:39
[2020-07-26 11:46] VITALS: PULSE 80
--- NOTE | 2020-07-26 13:26 | P.DS ---
Providers Date of admission: 07/21/20 07:14 Expected date of discharge: 07/26/20 Attending physician: Bhupendra Khan Consults: 07/21/20 11:43 Consult Physician Routine Consulting Provider: Shae Mckeon Consult Reason/Comments: Medical management Do you want consulting provider notified?: Yes Primary care physician: Stated None Hospital Course: Discharge diagnosis History of perforated diverticulitis status post reversal of colostomy and small bowel resection Hospital course This is a 54-year-old male with a known history of perforated diverticulitis. He is now status post reversal of colostomy and small bowel resection. Patient tolerated surgery well. He is tolerating advancement of diet. He is having bowel movements. He is afebrile. He is up and ambulating. Patient is stable for discharge. Physician Sourcing Associate note has been reviewed by physician. Signing provider agrees with the documented findings, assessment, and plan of care. Patient Condition at Discharge: Stable Plan - Discharge Summary Discharge Rx Participant: Yes New Discharge Prescriptions: New Docusate [Colace] 100 mg PO BID #30 capsule Hydrocodone/Acetaminophen [Starr 5-325] 1 tab PO Q4HR PRN 3 Days #18 tab PRN Reason: Pain Continue amLODIPine [Norvasc] 10 mg PO W/SUPPER Multivit-Min/Folic/Vit K/Lycop [Men's Multivitamin Tablet] 1 each PO DAILY Discharge Medication List Multivit-Min/Folic/Vit K/Lycop [Men's Multivitamin Tablet] 1 each PO DAILY 07/17/20 [History] amLODIPine [Norvasc] 10 mg PO W/SUPPER 07/17/20 [History] Docusate [Colace] 100 mg PO BID #30 capsule 07/26/20 [Rx] Hydrocodone/Acetaminophen [Starr 5-325] 1 tab PO Q4HR PRN 3 Days #18 tab 07/26/20 [Rx] Follow up Appointment(s)/Referral(s): Genie Rodriguez NPC [REFERRING] - 08/02/20 1:30 pm Bhupendra Khan MD [STAFF PHYSICIAN] - 1 Week Patient Instructions/Handouts: Diverticulosis (DC), Electronic Cigarettes and Your Health (ED), Open Colostomy Reversal (DC) Activity/Diet/Wound Care/Special Instructions: No driving while taking Starr No lifting over 10 pounds You may shower. No soaking or tub baths for 2 weeks Very light activity until you are reevaluated at your follow up appointment with your surgeon Take Benefiber or Metamucil daily Discharge Disposition: HOME SELF-CARE
== END 2020-07-26 14:19 | disposition home or self-care (01) | DRG 331 ==
LOC: 2ORMAIN 07:14 → EDSTATUS 09:40 → 6NMEDSUR 11:51
PROVIDERS: ADMIT Surgery; ATTEND Surgery
PROC: 0DBB0ZZ Excision of Ileum, Open Approach (ICD-10-PCS; principal; 2020-07-21 09:10)
PROC: 0DBE0ZZ Excision of Large Intestine, Open Approach (ICD-10-PCS; principal; 2020-07-21 09:10)
DX: Z43.3 Encounter for attention to colostomy (principal); D72.829 Elevated white blood cell count, unspecified; F41.9 Anxiety disorder, unspecified; I10 Essential (primary) hypertension; R00.0 Tachycardia, unspecified; R11.0 Nausea; K57.30 Diverticulosis of large intestine without perforation or abscess without bleeding; F17.210 Nicotine dependence, cigarettes, uncomplicated; Z79.899 Other long term (current) drug therapy; Z90.49 Acquired absence of other specified parts of digestive tract; Z87.81 Personal history of (healed) traumatic fracture; Z98.890 Other specified postprocedural states; Z82.49 Family history of ischemic heart disease and other diseases of the circulatory system
CPT/HCPCS: 36415; 80048; 84132; 85025; 86850; 86900; 86901; 88304; 94760

== ENCOUNTER 2023-11-07 12:54 | Emergency (ER) | payer BC ==
--- NOTE | 2023-11-07 13:32 | ED ---
Back Pain HPI - General Chief Complaint: Back Pain/Injury Stated Complaint: back pain Time Seen by Provider: 11/07/23 13:18 Source: patient, RN notes reviewed Limitations: no limitations - History of Present Illness Initial Comments: Patient is a 57-year-old male presented ER with chief complaint of left back/hip pain. Patient states has been going on for about 3 weeks. He states that he was doing yard work and believes he messed up his back. He states that his pain is worse in the morning and once he gets up and starts moving pain improves. He does report radiation to his left knee. Patient denies any fevers, IV drug use, saddle paresthesias, bowel or bladder incontinence. Patient states he woke up this morning and pain was unbearable Department which brought him to the ER. - Related Data Home Medications Medication Instructions Recorded Confirmed Multivit-Min/Folic/Vit K/Lycop 1 each PO DAILY 07/17/20 07/21/20 [Men's Multivitamin Tablet] amLODIPine [Norvasc] 10 mg PO W/SUPPER 07/17/20 07/21/20 Previous Rx's Medication Instructions Recorded Docusate [Colace] 100 mg PO BID #30 capsule 07/26/20 Hydrocodone/Acetaminophen [Eugene 1 tab PO Q4HR PRN 3 Days #18 tab 07/26/20 5-325] Cyclobenzaprine [Flexeril] 10 mg PO TID PRN #15 tab 11/07/23 Cyclobenzaprine [Flexeril] 10 mg PO TID PRN #15 tab 11/07/23 Allergies Allergy/AdvReac Type Severity Reaction Status Date / Time No Known Allergies Allergy Verified 11/07/23 13:05 Review of Systems ROS Statement: Those systems with pertinent positive or pertinent negative responses have been documented in the HPI. ROS Other: All systems not noted in ROS Statement are negative. Past Medical History Past Medical History: Hypertension Additional Past Medical History / Comment(s): DIVERTICULITIS WITH PERFORATION & COLOSTOMY (03/28/20). History of Any Multi-Drug Resistant Organisms: None Reported Past Surgical History: No Surgical Hx Reported Additional Past Surgical History / Comment(s): left elbow fracture repair, left knee washout and extensive stitches. Sigmoid colectomy with end colostomy. Past Anesthesia/Blood Transfusion Reactions: No Reported Reaction Past Psychological History: No Psychological Hx Reported Smoking Status: Never smoker Past Alcohol Use History: Occasional Past Drug Use History: Marijuana - Past Family History Father Additional Family Medical History / Comment(s): Aortic aneurysm General Exam Limitations: no limitations General appearance: alert, in no apparent distress Head exam: Present: atraumatic, normocephalic, normal inspection Neck exam: Present: normal inspection. Absent: tenderness, meningismus, lymphadenopathy Respiratory exam: Present: normal lung sounds bilaterally. Absent: respiratory distress, wheezes, rales, rhonchi, stridor Cardiovascular Exam: Present: regular rate, normal rhythm, normal heart sounds. Absent: systolic murmur, diastolic murmur, rubs, gallop, clicks Extremities exam: Present: normal inspection, full ROM, normal capillary refill, other (No pain with flexion or extension of left knee. No pain with internal/external rotation of hip. Pain is over piriformis area). Absent: tenderness, pedal edema, joint swelling, calf tenderness Back exam: Present: normal inspection Neurological exam: Present: alert, oriented X3, CN II-XII intact Psychiatric exam: Present: normal affect, normal mood Skin exam: Present: warm, dry, intact, normal color. Absent: rash Course Vital Signs 11/07/23 11/07/23 13:00 15:02 Temperature 98.1 F 98.2 F Pulse Rate 120 H 79 Respiratory 26 H 18 Rate Blood Pressure 177/93 159/94 O2 Sat by Pulse 99 100 Oximetry Medical Decision Making - Medical Decision Making Was pt. sent in by a medical professional or institution (, PA, SEWER REPAIRER, urgent care, hospital, or senior care...) When possible be specific @ -No Did you speak to anyone other than the patient for history (EMS, parent, family, police, friend...)? What history was obtained from this source @ -No Did you review nursing and triage notes (agree or disagree)? Why? @ -I reviewed and agree with nursing and triage notes Were old charts reviewed (outside hosp., previous admission, EMS record, old E KG, old radiological studies, urgent care reports/EKG's, senior care records)? Report findings @ -No old charts were reviewed Differential Diagnosis (chest pain, altered mental status, abdominal pain women, abdominal pain men, vaginal bleeding, weakness, fever, dyspnea, syncope, headache, dizziness, GI bleed, back pain, seizure, CVA, palpatations, mental hea lth, musculoskeletal)? @ -Differential Back Pain: Strain, zoster, cauda equina syndrome, epidural abscess, vertebral osteomyelitis, discitis, fracture, subluxation, disc herniation, DJD, spinal stenosis, dissection, AAA, pancreatitis, peptic ulcer disease, pyelonephritis, kidney stone, this is not meant to be an all-inclusive list. EKG interpreted by me (3pts min.). @ -None X-rays interpreted by me (1pt min.). @ -Lumbar spine x-ray showed no acute fractures or dislocations. Left hip and AP pelvis negative for acute process. CT interpreted by me (1pt min.). @ -None done U/S interpreted by me (1pt. min.). @ -None done What testing was considered but not performed or refused? (CT, X-rays, U/S, labs)? Why? @ -None What meds were considered but not given or refused? Why? @ -None Did you discuss the management of the patient with other professionals (professionals i.e. , PA, SEWER REPAIRER, lab, RT, psych nurse, psych social worker, delivery technician, teacher, traffic police officer, housing case manager)? Give summary @ -No Was smoking cessation discussed for >3mins.? @ -No Was critical care preformed (if so, how long)? @ -No Were there social determinants of health that impacted care today? How? (Homelessness, low income, unemployed, alcoholism, drug addiction, transportation, low edu. Level, literacy, decrease access to med. care, senior care, rehab)? @ -No Was there de-escalation of care discussed even if they declined (Discuss DNR or withdrawal of care, Hospice)? DNR status @ -No What co-morbidities impacted this encounter? (DM, HTN, Smoking, COPD, CAD, Cancer, CVA, ARF, Chemo, Hep., AIDS, mental health diagnosis, sleep apnea, morbid obesity)? @ -None Was patient admitted / discharged? Hospital course, mention meds given and route, prescriptions, significant lab abnormalities, going to OR and other pertinent info. @ -Discharge. Patient is a 57-year-old male presenting to the ER with chief complaint of left-sided back pain. Vitals stable. History and physical exam were completed. No red flag back pain symptoms present. X-rays do not show any acute fractures or dislocations. Patient received IM Dilaudid with slight improvement of his symptoms. Due to imaging and exam findings sciatica is suspected. I discussed imaging findings with the patient. I discussed stretching options to help with pain. Patient will be prescribed Flexeril and given a starter pack of Eugene for symptom control. Return parameters were discussed. Patient be discharged in stable condition with follow-up to PCP. Patient expressed understanding and agreement with care plan. Undiagnosed new problem with uncertain prognosis? @ -No Drug Therapy requiring intensive monitoring for toxicity (Heparin, Nitro, Insulin, Cardizem)? @ -No Were any procedures done? @ -No Diagnosis/symptom? @ -Sciatica Acute, or Chronic, or Acute on Chronic? @ -Acute Uncomplicated (without systemic symptoms) or Complicated (systemic symptoms)? @ -Uncomplicated Side effects of treatment? @ -No Exacerbation, Progression, or Severe Exacerbation? @ -No Poses a threat to life or bodily function? How? (Chest pain, [place], MA, pneumonia, PE, COPD, DKA, ARF, appy, cholecystitis, CVA, Diverticulitis, Homicidal, Suicid al, threat to staff... and all critical care pts) @ -No - Radiology Data Radiology results: report reviewed, image reviewed Disposition Clinical Impression: Sciatica Disposition: HOME SELF-CARE Condition: Stable Instructions (If sedation given, give patient instructions): Sciatica (ED) Additional Instructions: Please continue to stretch. follow-up with PCP next 1-2 days. Return to ER for any new or worsening symptoms. Prescriptions: Cyclobenzaprine [Flexeril] 10 mg PO TID PRN #15 tab PRN Reason: Muscle Spasm Cyclobenzaprine [Flexeril] 10 mg PO TID PRN #15 tab PRN Reason: Muscle Spasm Is patient prescribed a controlled substance at d/c from ED?: No Referrals: Sandoval Manuel MD [Primary Care Provider] - 1-2 days Time of Disposition: 14:40
--- NOTE | 2023-11-07 13:58 | XR ---
EXAMINATION TYPE: XR Hip LT and AP Pelvis DATE OF EXAM: 11/07/2023 COMPARISON: None HISTORY: Pain TECHNIQUE: 2 view left hip supplemented with AP pelvis. FINDINGS: Left hip articulates with the acetabulum. Joint space is preserved. No acute fracture or di slocation is evident. Exam is supplemented with an AP pelvis. Symphysis pubis and sacroiliac joints are normal. Right hip a rticulates with the acetabulum. IMPRESSION: 1. No acute osseous abnormality left hip
--- NOTE | 2023-11-07 13:59 | XR ---
EXAMINATION TYPE: XR lumbar spine 2 or 3V DATE OF EXAM: 11/07/2023 COMPARISON: None HISTORY: Pain TECHNIQUE: 3 view lumbar spine FINDINGS: There are 5 lumbar-type vertebral bodies. Pedicles are intact. Disc heights are preserved. Vertebral body heights are preserved. Vascular calcifications within the aorta. IMPRESSION: 1. No acute osseous abnormality lumbar spine
[2023-11-07] MEDS: HYDROmorphone 0.5 MG/0.5 ML SYRINGE IM STA (14:12)
[2023-11-07 15:06] VITALS: BP 159/94; PULSE 79; RESP 18; TEMP 98.2
[2023-11-07] MEDS: ACET/COD 300 MG/30 MG STARTER PACK 6 TAB BTL PO STA (15:06)
== END 2023-11-07 15:33 | disposition home or self-care (01) ==
LOC: EC 12:54
DX: M54.32 Sciatica, left side (principal); I10 Essential (primary) hypertension; F12.90 Cannabis use, unspecified, uncomplicated; Z79.899 Other long term (current) drug therapy; Z90.49 Acquired absence of other specified parts of digestive tract
CPT/HCPCS: 72100; 73502; 99284; 96372; J1170